=== PATIENT | male | born 1980 | race Caucasian/White ===

== ENCOUNTER 2022-08-02 11:24 | Outpatient (REF) | payer OTHER, SELFPAY ==
--- NOTE | ~2022-08-02 | XR_ITS ---
EXAMINATION: BILATERAL HAND AND WRIST X-RAY CLINICAL INFORMATION: Psoriatic arthritis COMPARISON: None TECHNIQUE: 4 views of the hands and wrists FINDINGS: Bone alignment is normal. No fracture or dislocation is seen. There is question of periarticular osteopenia at the MCP joints. Joint spaces are otherwise normal. No erosions are seen. Soft tissues are normal. XR/XR hand wrist RT IMPRESSION: Unremarkable exam.
--- NOTE | ~2022-08-02 | XR_ITS ---
EXAMINATION: BILATERAL FOOT X-RAY CLINICAL INFORMATION: Psoriatic arthritis COMPARISON: None TECHNIQUE: 3 views of each foot FINDINGS: Bone alignment is normal. No fracture or dislocation. Normal joint spaces. No erosions. Small bilateral calcaneal spurs. Question prominent soft tissue over the plantar heel.s No soft tissue calcifications seen. XR/XR foot LT min 3V IMPRESSION: Small plantar calcaneal spurs. Question prominent soft tissue over the plantar heels.
--- NOTE | ~2022-08-02 | XR_ITS ---
EXAMINATION: XR SACROILIAC JOINTS CLINICAL INFORMATION: Psoriatic arthritis COMPARISON: None TECHNIQUE: 3 views of the sacroiliac joints FINDINGS: No fracture or dislocation. No evidence of sacroiliitis. Postsurgical changes to the lower lumbar spine. Soft tissues are normal. XR/XR sacroiliac joint min 3V IMPRESSION: No evidence of sacroiliitis.
--- NOTE | ~2022-08-02 | XR_ITS ---
EXAMINATION: BILATERAL HAND AND WRIST X-RAY CLINICAL INFORMATION: Psoriatic arthritis COMPARISON: None TECHNIQUE: 4 views of the hands and wrists FINDINGS: Bone alignment is normal. No fracture or dislocation is seen. There is question of periarticular osteopenia at the MCP joints. Joint spaces are otherwise normal. No erosions are seen. Soft tissues are normal. XR/XR hand wrist LT IMPRESSION: Unremarkable exam.
--- NOTE | ~2022-08-02 | XR_ITS ---
EXAMINATION: BILATERAL FOOT X-RAY CLINICAL INFORMATION: Psoriatic arthritis COMPARISON: None TECHNIQUE: 3 views of each foot FINDINGS: Bone alignment is normal. No fracture or dislocation. Normal joint spaces. No erosions. Small bilateral calcaneal spurs. Question prominent soft tissue over the plantar heel.s No soft tissue calcifications seen. XR/XR foot RT min 3V IMPRESSION: Small plantar calcaneal spurs. Question prominent soft tissue over the plantar heels.
[2022-08-02 11:42] LABS: MANUAL DIFF FLAG NO
[2022-08-02 12:26] LABS: Basophils Absolute Auto 0.1 X10*3/uL (0.0-0.2); Basophils Percent Auto 0.4 % (0-2); Eosinophils Absolute Auto 0.2 X10*3/uL (0.0-0.4); Eosinophils Percent Auto 1.2 % (0-4); Hematocrit 43.2 % (42.0-52.0); Hemoglobin 14.4 g/dl (14.0-18.0); Imm Gran Abs Auto 0.13 X10*3/uL (0.00-0.03); Lymphocytes Absolute Auto 3.2 X10*3/uL (1.2-4.9); Mean Corpuscular HGB Conc 33.3 g/dl (31.0-36.0); Mean Corpuscular Hemoglobin 29.9 pg (27.0-33.0); Mean Corpuscular Volume 89.6 fL (80.0-98.0); Monocytes Absolute Auto 0.8 X10*3/uL (0.1-1.2); Monocytes Percent Auto 6.3 % (2-11); Neutrophils Absolute Auto 8.4 x10*3/uL (2.0-8.3); Neutrophils Percent Auto 66.1 % (45-73); Platelet Count 404 X10*3/uL (160-400); Red Blood Count 4.82 X10*6/uL (4.60-5.80); Red Cell Distribution Width 12.7 % (11.0-16.0); White Blood Count 12.8 X10*3/uL (4.8-10.8)
[2022-08-02 15:17] LABS: Alanine Aminotransferase 21 U/L (0-40); Albumin Level 4.5 g/dL (3.5-5.0); Alkaline Phosphatase 84 U/L (39-117); Anion Gap 16 (12-20); Aspartate Amino Transferase 14 U/L (5-37); Bilirubin Total 0.4 mg/dL (0.0-1.0); Blood Urea Nitrogen 17 mg/dL (9-16); C Reactive Protein 1.61 mg/dL (< or = 0.50); Calcium 9.5 mg/dL (8.4-10.2); Carbon Dioxide 21 mmol/L (22-29); Chloride 104 mmol/L (96-108); Estimated Glomerular Filt Rate > 60; Glucose Random 295 mg/dL (60-115); Potassium 4.1 mmol/L (3.3-5.1); Sodium 137 mmol/L (135-145); Total Protein 7.7 g/dL (6.5-8.0); Uric Acid 2.7 mg/dL (3.4-7.0)
[2022-08-03 08:59] LABS: HBc Num1 0.06 S/CO (0.00-0.79); HBsAGNum1 0.36 S/CO (0.00-0.99); Hepatitis B Core Antibody Nonreactive (Nonreactive); Hepatitis B Surface Antigen Negative (Negative); ~HepC Num1 0.08 S/CO (0.00-0.79); ~Hepatitis B Surface Antibody NONREACTIVE (Nonreactive); ~Hepatitis C Antibody Nonreactive (Nonreactive)
[2022-08-04 07:43] LABS: Hepatitis A Antibody IgM 0.11 Index (0-0.79); ~Hepatitis A Antibody IgM Nonreactive (Nonreactive)
[2022-08-04 17:13] LABS: Cyclic Citrullinated Peptide <16 UNITS
[2022-08-05 03:29] LABS: TS Negative Control Passed; TS Panel A 0; TS Panel B 0; TS Positive Control Passed; TSpotTB Negative (Negative)
[2022-08-05 13:34] LABS: Hepatitis B Viral DNA Qn - cp <1.00 NOT DETECTED Log IU/mL (NOT DETECTED); Hepatitis B Viral DNA Qn-IU/mL <10 NOT DETECTED IU/mL (NOT DETECTED)
[2022-08-09 09:19] LABS: HLA B27 Negative (Negative)
== END 2022-08-02 11:25 | disposition home or self-care (01) ==
LOC: HO.LAB 11:24
PROVIDERS: PCP Internal Medicine; Visit Provider Student in an Organized Health Care Education/Training Program
DX: Z11.7 Encounter for testing for latent tuberculosis infection (principal); Z11.59 Encounter for screening for other viral diseases; L40.50 Arthropathic psoriasis, unspecified; B19.10 Unspecified viral hepatitis B without hepatic coma
CPT/HCPCS: 36415; 72202; 73110; 73130; 73630; 80053; 84550; 85025; 86140; 86200; 86481; 86704; 86706; 86709; 86803; 86812; 87340; 87517; 99202

== ENCOUNTER → 2022-08-25 08:04 | Outpatient (BNVA) | payer OTHER, SELFPAY | PROVIDERS: PCP Internal Medicine; Visit Provider Student in an Organized Health Care Education/Training Program | DX: L40.50 Arthropathic psoriasis, unspecified (principal); Z79.631 Long term (current) use of antimetabolite agent | CPT/HCPCS: 99212 ==

== ENCOUNTER 2022-09-19 12:17 | Outpatient (REF) | payer OTHER, SELFPAY ==
[2022-09-19 12:31] LABS: MANUAL DIFF FLAG NO
[2022-09-19 13:11] LABS: Basophils Absolute Auto 0.1 X10*3/uL (0.0-0.2); Basophils Percent Auto 0.5 % (0-2); Eosinophils Absolute Auto 0.1 X10*3/uL (0.0-0.4); Eosinophils Percent Auto 1.3 % (0-4); Hematocrit 39.7 % (42.0-52.0); Hemoglobin 13.3 g/dl (14.0-18.0); Imm Gran Abs Auto 0.06 X10*3/uL (0.00-0.03); Imm Gran Pct Auto 0.6 % (0.0-0.4); Lymphocytes Absolute Auto 2.9 X10*3/uL (1.2-4.9); Lymphocytes Percent Auto 26.9 % (20-40); Mean Corpuscular HGB Conc 33.5 g/dl (31.0-36.0); Mean Corpuscular Hemoglobin 30.7 pg (27.0-33.0); Mean Corpuscular Volume 91.7 fL (80.0-98.0); Mean Platelet Volume 9.6 fL (9.4-12.4); Monocytes Absolute Auto 0.8 X10*3/uL (0.1-1.2); Monocytes Percent Auto 7.4 % (2-11); Neutrophils Absolute Auto 6.9 x10*3/uL (2.0-8.3); Neutrophils Percent Auto 63.3 % (45-73); Platelet Count 389 X10*3/uL (160-400); Red Blood Count 4.33 X10*6/uL (4.60-5.80); Red Cell Distribution Width 14.1 % (11.0-16.0); White Blood Count 10.9 X10*3/uL (4.8-10.8)
[2022-09-19 13:56] LABS: Alanine Aminotransferase 23 U/L (0-40); Albumin Level 4.2 g/dL (3.5-5.0); Alkaline Phosphatase 83 U/L (39-117); Anion Gap 11 (12-20); Aspartate Amino Transferase 14 U/L (5-37); Bilirubin Total 0.4 mg/dL (0.0-1.0); Blood Urea Nitrogen 18 mg/dL (9-16); C Reactive Protein 1.62 mg/dL (< or = 0.50); Calcium 9.5 mg/dL (8.4-10.2); Carbon Dioxide 26 mmol/L (22-29); Chloride 106 mmol/L (96-108); Estimated Glomerular Filt Rate > 60; Glucose Random 263 mg/dL (60-115); Potassium 4.2 mmol/L (3.3-5.1); Sodium 139 mmol/L (135-145); Total Protein 7.1 g/dL (6.5-8.0)
[2022-09-19 13:59] LABS: Erythrocyte Sedimentation Rate 19 MM/HR (0-15)
== END 2022-09-19 12:18 | disposition home or self-care (01) ==
LOC: HO.LAB 12:17
PROVIDERS: PCP Internal Medicine; Visit Provider Student in an Organized Health Care Education/Training Program
DX: Z79.631 Long term (current) use of antimetabolite agent (principal)
CPT/HCPCS: 36415; 80053; 85025; 85652; 86140

== ENCOUNTER 2022-10-20 12:16 | Outpatient (REF) | payer OTHER, SELFPAY ==
[2022-10-20 12:32] LABS: MANUAL DIFF FLAG NO
[2022-10-20 13:40] LABS: Basophils Percent Auto 0.5 % (0-2); Eosinophils Absolute Auto 0.1 X10*3/uL (0.0-0.4); Eosinophils Percent Auto 1.5 % (0-4); Hematocrit 41.3 % (42.0-52.0); Imm Gran Abs Auto 0.15 X10*3/uL (0.00-0.03); Imm Gran Pct Auto 1.7 % (0.0-0.4); Lymphocytes Absolute Auto 2.9 X10*3/uL (1.2-4.9); Lymphocytes Percent Auto 32.9 % (20-40); Mean Corpuscular HGB Conc 33.9 g/dl (31.0-36.0); Mean Corpuscular Hemoglobin 31.5 pg (27.0-33.0); Monocytes Absolute Auto 0.6 X10*3/uL (0.1-1.2); Monocytes Percent Auto 6.3 % (2-11); Neutrophils Absolute Auto 5.1 x10*3/uL (2.0-8.3); Neutrophils Percent Auto 57.1 % (45-73); Platelet Count 406 X10*3/uL (160-400); Red Blood Count 4.44 X10*6/uL (4.60-5.80); Red Cell Distribution Width 14.3 % (11.0-16.0); White Blood Count 8.9 X10*3/uL (4.8-10.8)
[2022-10-20 14:11] LABS: Alanine Aminotransferase 34 U/L (0-40); Albumin Level 4.2 g/dL (3.5-5.0); Alkaline Phosphatase 95 U/L (39-117); Anion Gap 14 (12-20); Aspartate Amino Transferase 19 U/L (5-37); Bilirubin Total 0.4 mg/dL (0.0-1.0); Blood Urea Nitrogen 11 mg/dL (9-16); C Reactive Protein 1.33 mg/dL (< or = 0.50); Calcium 9.5 mg/dL (8.4-10.2); Carbon Dioxide 26 mmol/L (22-29); Chloride 104 mmol/L (96-108); Estimated Glomerular Filt Rate > 60; Glucose Random 314 mg/dL (60-115); Potassium 3.9 mmol/L (3.3-5.1); Sodium 140 mmol/L (135-145); Total Protein 7.1 g/dL (6.5-8.0)
[2022-10-20 14:26] LABS: Erythrocyte Sedimentation Rate 16 MM/HR (0-15)
== END 2022-10-20 12:17 | disposition home or self-care (01) ==
LOC: HO.LAB 12:16
PROVIDERS: PCP Internal Medicine; Visit Provider Student in an Organized Health Care Education/Training Program
DX: Z79.631 Long term (current) use of antimetabolite agent (principal)
CPT/HCPCS: 36415; 80053; 85025; 85652; 86140

== ENCOUNTER → 2022-10-27 11:04 | Outpatient (BNVA) | payer OTHER, SELFPAY | PROVIDERS: PCP Internal Medicine; Visit Provider Student in an Organized Health Care Education/Training Program | DX: L40.50 Arthropathic psoriasis, unspecified (principal); Z79.631 Long term (current) use of antimetabolite agent | CPT/HCPCS: 99212 ==

== ENCOUNTER 2023-01-10 15:23 | Outpatient (REF) | payer OTHER, SELFPAY ==
[2023-01-10 15:33] LABS: MANUAL DIFF FLAG NO
[2023-01-10 15:51] LABS: Basophils Percent Auto 0.3 % (0-2); Eosinophils Absolute Auto 0.1 X10*3/uL (0.0-0.4); Eosinophils Percent Auto 1.3 % (0-4); Hematocrit 43.3 % (42.0-52.0); Hemoglobin 14.7 g/dl (14.0-18.0); Imm Gran Abs Auto 0.06 X10*3/uL (0.00-0.03); Imm Gran Pct Auto 0.6 % (0.0-0.4); Lymphocytes Absolute Auto 2.6 X10*3/uL (1.2-4.9); Mean Corpuscular HGB Conc 33.9 g/dl (31.0-36.0); Mean Corpuscular Hemoglobin 32.7 pg (27.0-33.0); Mean Corpuscular Volume 96.4 fL (80.0-98.0); Monocytes Absolute Auto 0.7 X10*3/uL (0.1-1.2); Monocytes Percent Auto 6.7 % (2-11); Neutrophils Absolute Auto 6.5 x10*3/uL (2.0-8.3); Neutrophils Percent Auto 65.1 % (45-73); Platelet Count 278 X10*3/uL (160-400); Red Blood Count 4.49 X10*6/uL (4.60-5.80); Red Cell Distribution Width 13.9 % (11.0-16.0)
[2023-01-10 16:25] LABS: Alanine Aminotransferase 39 U/L (0-40); Albumin Level 4.4 g/dL (3.5-5.0); Alkaline Phosphatase 59 U/L (39-117); Anion Gap 12 (12-20); Aspartate Amino Transferase 25 U/L (5-37); Bilirubin Total 0.6 mg/dL (0.0-1.0); Blood Urea Nitrogen 18 mg/dL (9-16); C Reactive Protein 0.31 mg/dL (< or = 0.50); Calcium 9.6 mg/dL (8.4-10.2); Carbon Dioxide 25 mmol/L (22-29); Chloride 108 mmol/L (96-108); Estimated Glomerular Filt Rate > 60; Glucose Random 171 mg/dL (60-115); Potassium 4.2 mmol/L (3.3-5.1); Sodium 141 mmol/L (135-145); Total Protein 7.1 g/dL (6.5-8.0)
[2023-01-10 16:41] LABS: Erythrocyte Sedimentation Rate 3 MM/HR (0-15)
== END 2023-01-10 15:24 | disposition home or self-care (01) ==
LOC: HO.LAB 15:23
PROVIDERS: PCP Internal Medicine; Visit Provider Student in an Organized Health Care Education/Training Program
DX: Z79.631 Long term (current) use of antimetabolite agent (principal)
CPT/HCPCS: 36415; 80053; 85025; 85652; 86140

== ENCOUNTER → 2023-01-12 09:03 | Outpatient (BNVA) | payer OTHER, SELFPAY | PROVIDERS: PCP Internal Medicine; Visit Provider Student in an Organized Health Care Education/Training Program | DX: L40.50 Arthropathic psoriasis, unspecified (principal); Z79.631 Long term (current) use of antimetabolite agent; Z79.899 Other long term (current) drug therapy | CPT/HCPCS: 99212 ==

== ENCOUNTER 2023-04-09 16:12 | Outpatient (REF) | payer OTHER, SELFPAY ==
[2023-04-09 16:45] LABS: MANUAL DIFF FLAG NO
[2023-04-09 16:51] LABS: Basophils Percent Auto 0.3 % (0-2); Eosinophils Absolute Auto 0.1 X10*3/uL (0.0-0.4); Eosinophils Percent Auto 1.3 % (0-4); Hematocrit 43.4 % (42.0-52.0); Hemoglobin 14.6 g/dl (14.0-18.0); Imm Gran Abs Auto 0.07 X10*3/uL (0.00-0.03); Imm Gran Pct Auto 0.7 % (0.0-0.4); Lymphocytes Absolute Auto 3.2 X10*3/uL (1.2-4.9); Lymphocytes Percent Auto 31.8 % (20-40); Mean Corpuscular HGB Conc 33.6 g/dl (31.0-36.0); Mean Corpuscular Hemoglobin 33.3 pg (27.0-33.0); Mean Corpuscular Volume 98.9 fL (80.0-98.0); Mean Platelet Volume 9.3 fL (9.4-12.4); Monocytes Absolute Auto 0.8 X10*3/uL (0.1-1.2); Monocytes Percent Auto 8.2 % (2-11); Neutrophils Absolute Auto 5.7 x10*3/uL (2.0-8.3); Neutrophils Percent Auto 57.7 % (45-73); Platelet Count 294 X10*3/uL (160-400); Red Blood Count 4.39 X10*6/uL (4.60-5.80); Red Cell Distribution Width 13.3 % (11.0-16.0)
[2023-04-09 17:29] LABS: Erythrocyte Sedimentation Rate 5 MM/HR (0-15)
[2023-04-09 17:33] LABS: Alanine Aminotransferase 23 U/L (0-40); Albumin Level 4.2 g/dL (3.5-5.0); Alkaline Phosphatase 84 U/L (39-117); Anion Gap 12 (12-20); Aspartate Amino Transferase 18 U/L (5-37); Bilirubin Total 0.2 mg/dL (0.0-1.0); Blood Urea Nitrogen 19 mg/dL (9-16); C Reactive Protein 0.24 mg/dL (< or = 0.50); Calcium 9.6 mg/dL (8.4-10.2); Carbon Dioxide 26 mmol/L (22-29); Chloride 109 mmol/L (96-108); Estimated Glomerular Filt Rate > 60; Glucose Random 119 mg/dL (60-115); Potassium 3.9 mmol/L (3.3-5.1); Sodium 143 mmol/L (135-145); Total Protein 7.2 g/dL (6.5-8.0)
== END 2023-04-09 16:13 | disposition home or self-care (01) ==
LOC: HO.LAB 16:12
PROVIDERS: Visit Provider Student in an Organized Health Care Education/Training Program
DX: L40.50 Arthropathic psoriasis, unspecified (principal)
CPT/HCPCS: 36415; 80053; 85025; 85652; 86140

== ENCOUNTER 2023-04-10 16:05 | Outpatient (AMB) | payer OTHER, SELFPAY ==
[2023-04-10 16:10] VITALS: BP 118/68; PULSE 89; TEMP 36.2; O2SAT 97; BMI 33.6
--- NOTE | 2023-04-10 16:10 | A.OFFVIS_ITS ---
Intake Vital Signs 04/10/23 16:10 Height 5 ft 6 in Weight 208 lb 5.389 oz BMI 33.6 BP 118/68 Blood Pressure Location Rt brachial Position Sitting Pulse 89 Pulse Source Pulse Oximeter Temp 97.2 F Temp Source Skin Pulse Oximetry (%) 97 Intake Visit Reasons: PsA Intake Note: Pt seen today for PsA follow up. 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 Accompanied by: Self / Same As Patient Allergies Seasonal Allergies Allergy (Unknown, Verified 04/10/23 16:12) Unknown Medication List - Last Reconciled 04/10/23 by Yvette Rosario MD adalimumab (Humira(CF) Pen) 40 mg (0.4 mL) subcut Q2W albuterol sulfate 90 mcg/actuation (ProAir HFA) 2 puffs inhalation Q6H PRN aripiprazole 20 mg PO BEDTIME atorvastatin 20 mg PO DAILY dulaglutide (Trulicity) mg subcut QWEEK fenofibrate 54 mg PO DAILY fluticasone propionate 50 mcg/actuation 1 spray intranasal DAILY folic acid 1 mg PO DAILY ibuprofen 800 mg PO Q12H PRN insulin glargine (Lantus Solostar U-100 Insulin) 25 units subcut BEDTIME loratadine 10 mg PO DAILY methotrexate sodium 15 mg (6 x 2.5 mg) PO QWEEK perphenazine 2 mg PO BEDTIME trazodone 50 mg PO BEDTIME HPI HPI Comments History of Present Illness Details 43-year-old male with psoriatic arthritis returns for follow-up. Three injections of the Humira so far. Continues to use methotrexate weekly. On methotrexate 15 mg weekly and Humira 40 mg every other week. Patient states that he has been having pain in his right hand fingers as well as his left hand. Associated with stiffness. Does not believe there is any swelling. Also has pain in his toes as well as pain in the bottom of his feet and heels. Feels that he has been standing for many hours. The pain is generally worse in the morning. Associated with swelling near the heel area. Has not had any psoriasis skin rashes. His neck cracks with movement. Mentions that he is scheduled for an injection in his lower back with [facility] later this week. Initial history: This is 42-year-old male with past medical history of hypertension, dyslipidemia, type 2 diabetes mellitus, fatty liver, anxiety, bip olar disorder who presents for evaluation of diffuse joint pain. The condition started 3-4 months ago with pain swelling and stiffness of his hands, wrists, elbows & toes. He also has triggering of his index finger. He was evaluated by Orthopedic surgery and found to have significantly elevated inflammatory markers. He was started on a prednisone taper with dramatic improvement of his symptoms however his blood sugar was significantly elevated. Patient currently takes Motrin 800 mg Twice daily with little relief. He states he was diagnosed with psoriasis since he was a child. Usually effects the skin behind his ears and his nails. There is no history suggestive of uveitis or inflammatory bowel disease. Patient has had back pain many years ago since after injury to the back. He had lumbar spine surgery many years ago. He is following up with [facility] and waiting to do an injection in his back. [facility] Medical History Anxiety Bipolar 1 disorder Diabetes Fatty liver Hepatitis B Hyperlipidemia Hypertriglyceridemia Low back pain Obesity SAGE (obstructive sleep apnea) Psoriasis Recurrent erosion of cornea, right eye Surgical History History of lumbar fusion Family History Mother Diverticulosis Fibromyalgia Arthritis Thyroid disease Family/Other Lupus Social History Household Members: Significant Other and Children Alcohol intake: current Alcohol intake frequency: holidays/special occasions only Patient Tobacco Use Status: Current everyday Tobacco user Cigarettes Per Day: 6 Current occupational status: unemployed Review of Systems Musc Reports arthralgias and Reports stiffness Skin/Breast Reports dry skin and Denies rash Physical Exam Vital Signs: Last Vital Signs Temp 97.2 F 04/10/23 16:10 Pulse 89 04/10/23 16:10 BP 118/68 04/10/23 16:10 Pulse Ox 97 04/10/23 16:10 BMI result Body Mass Index 33.6 Const General: cooperative, healthy appearing, comfortable, no acute distress and well developed Nutritional Appearance: obese Orientation/consciousness: patient oriented x3 Limitations: no limitations HEENT Head: Yes normocephalic and Yes atraumatic Resp Effort & Inspection: normal respiratory effort and able to speak in complete sentences Skin Other: No psoriasis patches today Neuro General: patient oriented x3 Extrem Other: No wrist pain swelling or tenderness or pain with full flexion and extension bilaterally Right hand diffuse PIP and the IP tenderness Negative MCP squeeze test No tender flexor or extensor tendons right hand Left hand with diffuse PIP tenderness No tender flexor or extensor tendon tenderness Right foot 2nd 4th and 5th MTP tenderness. Negative MTP squeeze test Left 3rd 4th and 5th MTP tenderness Positive calcaneal squeeze test bilaterally Negative empty can test, negative infraspinatus test and negative lift-off test bilaterally Results Reviewed Results Reviewed: Xrays reviewed: X-RAY EXAM OF SHOULDER, COMPLETE ? Result Date: 05/09/2022 Bilateral shoulders, 4 views of each HISTORY: Bilateral shoulder pain and stiffness COMMENT: 4 views. Compared with prior study of the left shoulder from 05/15/2018. There are mild degenerative changes in the AC joints bilaterally. There is no visible fractures, dislocations or abnormal soft tissue calcifications. Alignment is satisfactory. CONCLUSIONS: Mild degenerative changes in the AC joints. ? X-RAY EXAM OF FOOT, COMPLETE (3 VIEWS) ? Result Date: 05/09/2022 Bilateral feet, 3 views of each. Comparison with prior study from 04/14/2021. There is no evidence of fractures, dislocations or destructive lesions. There are bilateral tiny calcaneal spurs. There is no significant interval change since previous examination. CONCLUSIONS: Tiny calcaneal spurs. Otherwise unremarkable examination. X-RAY EXAM OF HAND, 3+ VIEWS Exam Date: 04/05/2022 11:50 AM Ordering Diagnosis: Trigger middle finger of right hand ? Right hand, 3 views. ? HISTORY: Right hand pain, most prominent in the middle finger. There is periarticular osteopenia. There is no visible fractures, dislocations, bony erosions or abnormal soft tissue calcifications. ? CONCLUSIONS: Periarticular osteopenia. Otherwise unremarkable examination. ? Reading Radiologist: Uric Acid 05/04/2022 4.0 3.7 - 9.2 mg/dL Leonarda l ? RHEUMATOID FACTOR 05/04/2022 < 10 <15 IU/mL F inal ? ANTI-NUCLEAR ANTIBODY SCREEN 05/04/2022 NEGATIVE NE GATIVE Final ? ERYTHROCYTE SEDIMENTATION RATE 05/04/2022 59 (A) 0 - 15 mm/hr Final ? WHITE BLOOD COUNT 05/04/2022 12.1 (A) 4.8 - 10.8 x 10-3/uL Final ? RED BLOOD COUNT 05/04/2022 4.4 (A) 4.5 - 5.5 x10- 6/uL Final ? Hemoglobin 05/04/2022 13.8 13.5 - 17.5 g/dL Final ? Hematocrit 05/04/2022 41.9 (A) 42 - 54 % Final ? MEAN CORPUSCULAR VOLUME 05/04/2022 95.7 79 - 9 8 fL Final ? MEAN CORPUSCULAR HEMOGLOBIN 05/04/2022 31.5 27 - 32 pg Final ? MEAN CORPUSCULAR HGB CONC 05/04/2022 32.9 32 - 37 g/dL Final ? RED CELL DISTRIBUTION WIDTH 05/04/2022 12.8 11 - 15 % Final ? PLT COUNT 05/04/2022 432 (A) 130 - 400 x10-3/ uL Final ? MEAN PLATELET VOLUME 05/04/2022 9.5 7 - 11 fL Final ? NRBC % AUTO 05/04/2022 0.0 <1 % Final ? NEUTROPHILS % 05/04/2022 64.6 % Final ? LYMPH % 05/04/2022 24.0 % Final ? MONO % 05/04/2022 7.4 % Final ? EOS % 05/04/2022 2.5 % Final ?D BASO % 05/04/2022 0.6 % Final ? IMMATURE GRANULOCYTES % 05/04/2022 0.9 % Final ? NRBC # AUTO 05/04/2022 0.00 <0.1 x10-3/uL Final ? NEUT # 05/04/2022 7.84 (A) 1.5 - 7.0 x10-3/ uL Final ? LYMPH # 05/04/2022 2.91 1 - 5.0 x10-3/uL Final ? MONO # 05/04/2022 0.90 0.2 - 1.0 x10-3/ uL Final ? EOS # 05/04/2022 0.30 0 - 0.5 x10-3/uL Final ? BASO # 05/04/2022 0.07 0 - 0.2 x10-3/uL Final ? IMMATURE GRANULOCYTES # 05/04/2022 0.11 (A) 0 - 0. 03 x10-3/uL CAT SCAN OF CHEST NO CONTRAST Exam Date: 06/26/2022 8:47 AM Ordering Diagnosis: Abnormal chest x-rayPleuritic chest pain ? History: Pleuritic chest pain. Possible consolidation on chest x-ray. ? Chest CT: CT of the chest was performed with a 3 mm slice thickness display. 2 mm coronal and axial reconstructions were performed as well. Radiation dose 13.2 mGy. ? Findings: Correlation is made with a chest x-ray dated 06/13/2022. There is some minimal linear scarring at the left lung base which probably accounts for the chest x- ray appearance. There are no alveolar infiltrates or effusions. There are no nodules or masses. The airways are patent. There is no mediastinal or hilar adenopathy. ? There is fatty infiltration of liver. Other structures of the chest and visualized upper abdomen are unremarkable. ? IMPRESSION IMPRESSION: No evidence of active pathology in the chest. Assessment & Plan Assessment & Plan (1) Psoriatic arthritis: Comment: PsA dx 09/11 MTX started 09/11 Humira added 11/09 effective Code(s): L40.50 - Arthropathic psoriasis, unspecified Plan: This is a 42-year-old male with psoriatic arthritis presents for follow-up. On Humira 40 mg every other week and methotrexate 15 mg weekly. Continues to have few tender joints. Much better overall. Inflammatory markers normalized. Psoriasis rash resolved. Patient is having an epidural steroid injection by [facility] in a few days. Advised patient to monitor his symptoms of pain in his hands and feet after the injection. If his pain improves, continue meds same dose as prescribed, however if his pain in his fingers and feet does not improve I asked him to increase the methotrexate dose to 20 mg weekly. Continue Humira 40 mg every other week. 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 Will monitor patient for side effects with frequent lab work. Advised patient to take folic acid daily to prevent complications of methotrexate. Side effects of Humira were discussed with the patient in detail including increased risk of infection, demyelinating disease, reactivation of latent TB, possible increased risk of solid and skin tumors. Patient fully aware. Advised patient to seek medical care Kole cece if patient has an infection and advised patient to stop the medication until the infection is resolved. Plan I spent 25 minutes reviewing patient's chart, evaluating patient, ordering diagnostic workup, counseling patient and documenting in the chart Coding Level of Care Code Est Pt Level 4 (82718) Diagnoses Psoriatic arthritis L40.50 Methotrexate, superintendent marine oil terminal, current use Z79.631
== END 2023-04-10 16:44 | disposition home or self-care (01) ==
PROVIDERS: PCP Internal Medicine; Visit Provider Student in an Organized Health Care Education/Training Program
DX: L40.50 Arthropathic psoriasis, unspecified (principal); Z79.631 Long term (current) use of antimetabolite agent
CPT/HCPCS: 99214

== ENCOUNTER → 2023-04-10 16:05 | Outpatient (BNVA) | payer OTHER, SELFPAY | PROVIDERS: Visit Provider Student in an Organized Health Care Education/Training Program | DX: L40.50 Arthropathic psoriasis, unspecified (principal); Z79.631 Long term (current) use of antimetabolite agent | CPT/HCPCS: 99212 ==

== ENCOUNTER 2023-06-29 13:44 | Outpatient (REF) | payer OTHER, SELFPAY ==
[2023-06-29 16:00] LABS: MANUAL DIFF FLAG NO
[2023-06-29 16:04] LABS: Basophils Percent Auto 0.4 % (0-2); Eosinophils Absolute Auto 0.1 X10*3/uL (0.0-0.4); Eosinophils Percent Auto 1.1 % (0-4); Hemoglobin 13.3 g/dl (14.0-18.0); Imm Gran Abs Auto 0.02 X10*3/uL (0.00-0.03); Imm Gran Pct Auto 0.3 % (0.0-0.4); Lymphocytes Absolute Auto 2.5 X10*3/uL (1.2-4.9); Lymphocytes Percent Auto 35.3 % (20-40); Mean Corpuscular HGB Conc 33.3 g/dl (31.0-36.0); Mean Corpuscular Hemoglobin 32.3 pg (27.0-33.0); Mean Corpuscular Volume 97.1 fL (80.0-98.0); Mean Platelet Volume 10.1 fL (9.4-12.4); Monocytes Absolute Auto 0.5 X10*3/uL (0.1-1.2); Monocytes Percent Auto 7.6 % (2-11); Neutrophils Absolute Auto 3.9 x10*3/uL (2.0-8.3); Neutrophils Percent Auto 55.3 % (45-73); Platelet Count 339 X10*3/uL (160-400); Red Blood Count 4.12 X10*6/uL (4.60-5.80); Red Cell Distribution Width 13.9 % (11.0-16.0); White Blood Count 7.1 X10*3/uL (4.8-10.8)
[2023-06-29 16:14] LABS: Alanine Aminotransferase 29 U/L (0-40); Alkaline Phosphatase 69 U/L (39-117); Anion Gap 9 (12-20); Aspartate Amino Transferase 24 U/L (5-37); Bilirubin Total 0.4 mg/dL (0.0-1.0); Blood Urea Nitrogen 14 mg/dL (9-16); C Reactive Protein 0.36 mg/dL (< or = 0.50); Calcium 9.2 mg/dL (8.4-10.2); Carbon Dioxide 26 mmol/L (22-29); Chloride 110 mmol/L (96-108); Estimated Glomerular Filt Rate > 60; Glucose Random 126 mg/dL (60-115); Potassium 3.6 mmol/L (3.3-5.1); Sodium 141 mmol/L (135-145); Total Protein 7.3 g/dL (6.5-8.0)
[2023-06-29 17:06] LABS: Erythrocyte Sedimentation Rate 16 MM/HR (0-15)
== END 2023-06-29 13:45 | disposition home or self-care (01) ==
LOC: HO.HMGCLDS 13:44
PROVIDERS: PCP Internal Medicine; Visit Provider Student in an Organized Health Care Education/Training Program
DX: Z79.631 Long term (current) use of antimetabolite agent (principal)
CPT/HCPCS: 36415; 80053; 85025; 85652; 86140

== ENCOUNTER 2023-07-04 16:01 | Outpatient (AMB) | payer OTHER, SELFPAY ==
--- NOTE | 2023-07-04 16:03 | MHC.OFFVIS ---
Intake Vital Signs 07/04/23 16:04 Height 5 ft 6 in Weight 205 lb 7.533 oz BMI 33.2 BP 122/68 Blood Pressure Location Rt brachial Position Sitting Pulse 80 Pulse Source Pulse Oximeter Pulse Oximetry (%) 98 Oxygen Delivery Method Room Air Intake Visit Reasons: PsA Intake Note: Pt last seen 04/10/23, presents today for follow up and test results. s/p epidural steroid injection with PSS pain did not improve; spine stimulator ordered awaiting appt. Humira and MTX 6 tabs weekly. 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 Accompanied by: Self / Same As Patient Allergies Seasonal Allergies Allergy (Unknown, Verified 07/04/23 16:10) Unknown Medication List - Last Reconciled 07/04/23 by Yvette Rosario MD adalimumab (Humira(CF) Pen) 40 mg (0.4 mL) subcut Q2W albuterol sulfate 90 mcg/actuation (ProAir HFA) 2 puffs inhalation Q6H PRN aripiprazole 20 mg PO BEDTIME atorvastatin 20 mg PO DAILY dulaglutide (Trulicity) mg subcut QWEEK fenofibrate 54 mg PO DAILY fluticasone propionate 50 mcg/actuation 1 spray intranasal DAILY folic acid 1 mg PO DAILY ibuprofen 800 mg PO Q12H PRN insulin glargine (Lantus Solostar U-100 Insulin) 25 units subcut BEDTIME loratadine 10 mg PO DAILY methotrexate sodium 15 mg (6 x 2.5 mg) PO QWEEK perphenazine 2 mg PO BEDTIME trazodone 50 mg PO BEDTIME HPI HPI Comments History of Present Illness Details 43-year-old male with psoriatic arthritis returns for follow-up. On Humira 40 mg every other week and methotrexate 15 mg weekly. States that he received multiple steroid injections by [facility] without much improvement and is planned for a stimulator placement soon. States that he gets intermittent tingling and numbness of his fingers. Continues to have mild pain in his PIP & DIPs. States that he was recently evaluated by his PCP and was told that he might have a skin infection in his groin and was started on antibiotics. He received the flu vaccine and pneumonia vaccine today Initial history: This is 42-year-old male with past medical history of hypertension, dyslipidemia, type 2 diabetes mellitus, fatty liver, anxiety, bipolar disorder who presents for evaluation of diffuse joint pain. The condition started 3-4 months ago with pain swelling and stiffness of his hands, wrists, elbows & toes. He also has triggering of his index finger. He was evaluated by Orthopedic surgery and found to have significantly elevated inflammatory markers. He was started on a prednisone taper with dramatic improvement of his symptoms however his blood sugar was significantly elevated. Patient currently takes Motrin 800 mg Twice daily with little relief. He states he was diagnosed with psoriasis since he was a child. Usually effects the skin behind his ears and his nails. There is no history suggestive of uveitis or inflammatory bowel disease. Patient has had back pain many years ago since after injury to the back. He had lumbar spine surgery many years ago. He is following up with [facility] and waiting to do an injection in his back. [facility] Medical History Recurrent erosion of cornea, right eye Hepatitis B Psoriasis Hyperlipidemia Anxiety Bipolar 1 disorder Low back pain Fatty liver Obesity SAGE (obstructive sleep apnea) Hypertriglyceridemia Diabetes Surgical History History of lumbar fusion Family History Mother Diverticulosis Fibromyalgia Arthritis Thyroid disease Family/Other Lupus Social History Household Members: Significant Other and Children Alcohol intake: current Alcohol intake frequency: holidays/special occasions only Patient Tobacco Use Status: Current everyday Tobacco user Cigarettes Per Day: 6 Current occupational status: unemployed Review of Systems Musc Reports arthralgias, Reports numbness and Reports stiffness Skin/Breast Reports dry skin and Denies rash Neuro Reports numbness and Reports paresthesias Physical Exam Vital Signs: Last Vital Signs Pulse 80 07/04/23 16:04 BP 122/68 07/04/23 16:04 Pulse Ox 98 07/04/23 16:04 Oxygen Delivery Method Room Air 07/04/23 16:04 BMI result Body Mass Index 33.2 Const General: cooperative, healthy appearing, comfortable, no acute distress and well developed Nutritional Appearance: obese Orientation/consciousness: patient oriented x3 Limitations: no limitations HEENT Head: Yes normocephalic and Yes atraumatic Neck Other: Negative Spurling's test bilaterally Resp Effort & Inspection: normal respiratory effort and able to speak in complete sentences Neuro General: patient oriented x3 Extrem Other: No wrist pain swelling or tenderness or pain with full flexion and extension bilaterally Right hand diffuse PIP and DIP tenderness without swelling Negative MCP squeeze test No tender flexor or extensor tendons right hand Left hand with diffuse PIP & DIP tenderness No tender flexor or extensor tendon tenderness Negative MTP squeeze test Results Reviewed Results Reviewed: Xrays reviewed: X-RAY EXAM OF SHOULDER, COMPLETE ? Result Date: 05/09/2022 Bilateral shoulders, 4 views of each HISTORY: Bilateral shoulder pain and stiffness COMMENT: 4 views. Compared with prior study of the left shoulder from 05/15/2018. There are mild degenerative changes in the AC joints bilaterally. There is no visible fractures, dislocations or abnormal soft tissue calcifications. Alignment is satisfactory. CONCLUSIONS: Mild degenerative changes in the AC joints. ? X-RAY EXAM OF FOOT, COMPLETE (3 VIEWS) ? Result Date: 05/09/2022 Bilateral feet, 3 views of each. Comparison with prior study from 04/14/2021. There is no evidence of fractures, dislocations or destructive lesions. There are bilateral tiny calcaneal spurs. There is no significant interval change since previous examination. CONCLUSIONS: Tiny calcaneal spurs. Otherwise unremarkable examination. X-RAY EXAM OF HAND, 3+ VIEWS Exam Date: 04/05/2022 11:50 AM Ordering Diagnosis: Trigger middle finger of right hand ? Right hand, 3 views. ? HISTORY: Right hand pain, most prominent in the middle finger. There is periarticular osteopenia. There is no visible fractures, dislocations, bony erosions or abnormal soft tissue calcifications. ? CONCLUSIONS: Periarticular osteopenia. Otherwise unremarkable examination. ? Reading Radiologist: Uric Acid 05/04/2022 4.0 3.7 - 9.2 mg/dL Final ? RHEUMATOID FACTOR 05/04/2022 < 10 <15 IU/mL Final ? ANTI-NUCLEAR ANTIBODY SCREEN 05/04/2022 NEGATIVE NEGATIVE Final ? ERYTHROCYTE SEDIMENTATION RATE 05/04/2022 59 (A) 0 - 15 mm/hr Final ? WHITE BLOOD COUNT 05/04/2022 12.1 (A) 4.8 - 10.8 x10-3/uL Final ? RED BLOOD COUNT 05/04/2022 4.4 (A) 4.5 - 5.5 x10-6/uL Final ? Hemoglobin 05/04/2022 13.8 13.5 - 17.5 g/dL Final ? Hematocrit 05/04/2022 41.9 (A) 42 - 54 % Final ? MEAN CORPUSCULAR VOLUME 05/04/2022 95.7 79 - 98 fL Final ? MEAN CORPUSCULAR HEMOGLOBIN 05/04/2022 31.5 27 - 32 pg Final ? MEAN CORPUSCULAR HGB CONC 05/04/2022 32.9 32 - 37 g/dL Final ? RED CELL DISTRIBUTION WIDTH 05/04/2022 12.8 11 - 15 % Final ? PLT COUNT 05/04/2022 432 (A) 130 - 400 x10-3/uL Final ? MEAN PLATELET VOLUME 05/04/2022 9.5 7 - 11 fL Final ? NRBC % AUTO 05/04/2022 0.0 <1 % Final ? NEUTROPHILS % 05/04/2022 64.6 % Final ? LYMPH % 05/04/2022 24.0 % Final ? MONO % 05/04/2022 7.4 % Final ? EOS % 05/04/2022 2.5 % Final ? BASO % 05/04/2022 0.6 % Final ? IMMATURE GRANULOCYTES % 05/04/2022 0.9 % Final ? NRBC # AUTO 05/04/2022 0.00 <0.1 x10-3/uL Final ? NEUT # 05/04/2022 7.84 (A) 1.5 - 7.0 x10-3/uL Final ? LYMPH # 05/04/2022 2.91 1 - 5.0 x10-3/uL Final ? MONO # 05/04/2022 0.90 0.2 - 1.0 x10-3/uL Final ? EOS # 05/04/2022 0.30 0 - 0.5 x10-3/uL Final ? BASO # 05/04/2022 0.07 0 - 0.2 x10-3/uL Final ? IMMATURE GRANULOCYTES # 05/04/2022 0.11 (A) 0 - 0.03 x10-3/uL CAT SCAN OF CHEST NO CONTRAST Exam Date: 06/26/2022 8:47 AM Ordering Diagnosis: Abnormal chest x-rayPleuritic chest pain ? History: Pleuritic chest pain. Possible consolidation on chest x-ray. ? Chest CT: CT of the chest was performed with a 3 mm slice thickness display. 2 mm coronal and axial reconstructions were performed as well. Radiation dose 13.2 mGy. ? Findings: Correlation is made with a chest x-ray dated 06/13/2022. There is some minimal linear scarring at the left lung base which probably accounts for the chest x-ray appearance. There are no alveolar infiltrates or effusions. There are no nodules or masses. The airways are patent. There is no mediastinal or hilar adenopathy. ? There is fatty infiltration of liver. Other structures of the chest and visualized upper abdomen are unremarkable. ? IMPRESSION IMPRESSION: No evidence of active pathology in the chest. Assessment & Plan Assessment & Plan (1) Psoriatic arthritis: Comment: PsA dx 09/11 MTX started 09/11 Humira added 11/09 effective Code(s): L40.50 - Arthropathic psoriasis, unspecified Plan: This is a 43-year-old male with psoriatic arthritis presents for follow-up. On Humira 40 mg every other week and methotrexate 15 mg weekly. Continues to have few tender joints. Nothing swollen today. Inflammatory markers normalized. Psoriasis rash resolved. Continue Humira 40 mg every other week. Continue methotrexate 15 mg weekly, Continue folic acid 1 mg daily Patient is currently on antibiotics for a skin infection. 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 He also took the methotrexate today. Advised patient to hold the next methotrexate dose Plan I spent 25 minutes reviewing patient's chart, evaluating patient, ordering diagnostic workup, counseling patient and documenting in the chart Orders: Orders Complete Blood Count Auto Diff 3 Months Z79.631 - intermediate designer (current) use of antimetabolite agent NE electromyogram (EMG) Today R20.2 - Paresthesia of skin Comprehensive Met. 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
[2023-07-04 16:04] VITALS: BP 122/68; PULSE 80; O2SAT 98; BMI 33.2
== END 2023-07-04 16:27 | disposition home or self-care (01) ==
PROVIDERS: PCP Internal Medicine; Visit Provider Student in an Organized Health Care Education/Training Program
DX: L40.50 Arthropathic psoriasis, unspecified (principal); Z79.631 Long term (current) use of antimetabolite agent; R20.2 Paresthesia of skin; Z71.85 Encounter for immunization safety counseling
CPT/HCPCS: 99214

== ENCOUNTER → 2023-07-04 16:01 | Outpatient (BNVA) | payer OTHER, SELFPAY | PROVIDERS: PCP Internal Medicine; Visit Provider Student in an Organized Health Care Education/Training Program | DX: L40.50 Arthropathic psoriasis, unspecified (principal); R20.2 Paresthesia of skin; Z23 Encounter for immunization; Z71.85 Encounter for immunization safety counseling; Z79.631 Long term (current) use of antimetabolite agent | CPT/HCPCS: 99212 ==

== ENCOUNTER 2023-08-01 08:58 | Outpatient (REF) | payer OTHER, SELFPAY ==
--- NOTE | 2023-08-01 09:02 | EMG_ITS ---
Please see scanned EMG / Nerve Conduction Report. MTDD
== END 2023-08-01 08:59 | disposition home or self-care (01) ==
LOC: HO.NEURO 08:58
PROVIDERS: PCP Internal Medicine; Visit Provider Student in an Organized Health Care Education/Training Program
DX: R20.2 Paresthesia of skin (principal)
CPT/HCPCS: 95886; 95913

== ENCOUNTER 2023-10-17 12:02 | Outpatient (REF) | payer OTHER, SELFPAY ==
[2023-10-17 13:46] LABS: MANUAL DIFF FLAG NO
[2023-10-17 13:58] LABS: Basophils Percent Auto 0.4 % (0-2); Eosinophils Absolute Auto 0.1 X10*3/uL (0.0-0.4); Eosinophils Percent Auto 1.7 % (0-4); Hematocrit 41.6 % (42.0-52.0); Hemoglobin 14.2 g/dl (14.0-18.0); Imm Gran Abs Auto 0.05 X10*3/uL (0.00-0.03); Imm Gran Pct Auto 0.6 % (0.0-0.4); Lymphocytes Absolute Auto 3.9 X10*3/uL (1.2-4.9); Lymphocytes Percent Auto 49.7 % (20-40); Mean Corpuscular HGB Conc 34.1 g/dl (31.0-36.0); Mean Corpuscular Hemoglobin 32.7 pg (27.0-33.0); Mean Corpuscular Volume 95.9 fL (80.0-98.0); Mean Platelet Volume 10.2 fL (9.4-12.4); Monocytes Absolute Auto 0.6 X10*3/uL (0.1-1.2); Monocytes Percent Auto 7.3 % (2-11); Neutrophils Absolute Auto 3.1 x10*3/uL (2.0-8.3); Neutrophils Percent Auto 40.3 % (45-73); Platelet Count 282 X10*3/uL (160-400); Red Blood Count 4.34 X10*6/uL (4.60-5.80); Red Cell Distribution Width 13.2 % (11.0-16.0); White Blood Count 7.8 X10*3/uL (4.8-10.8)
[2023-10-17 14:10] LABS: Alanine Aminotransferase 30 U/L (0-40); Alkaline Phosphatase 83 U/L (39-117); Anion Gap 9 (12-20); Aspartate Amino Transferase 23 U/L (5-37); Bilirubin Total 0.3 mg/dL (0.0-1.0); Blood Urea Nitrogen 21 mg/dL (9-16); C Reactive Protein 0.37 mg/dL (< or = 0.50); Calcium 9.4 mg/dL (8.4-10.2); Carbon Dioxide 28 mmol/L (22-29); Chloride 106 mmol/L (96-108); Estimated Glomerular Filt Rate > 60; Glucose Random 190 mg/dL (60-115); Potassium 3.1 mmol/L (3.3-5.1); Sodium 140 mmol/L (135-145); Total Protein 7.1 g/dL (6.5-8.0)
[2023-10-17 14:36] LABS: Erythrocyte Sedimentation Rate 6 MM/HR (0-15)
== END 2023-10-17 12:03 | disposition home or self-care (01) ==
LOC: HO.HMGCLDS 12:02
PROVIDERS: PCP Internal Medicine; Visit Provider Student in an Organized Health Care Education/Training Program
DX: Z79.631 Long term (current) use of antimetabolite agent (principal)
CPT/HCPCS: 36415; 80053; 85025; 85652; 86140

== ENCOUNTER 2023-10-18 12:58 | Outpatient (AMB) | payer OTHER, SELFPAY ==
[2023-10-18 13:04] VITALS: BP 126/74; PULSE 82; TEMP 36.8; O2SAT 98; BMI 33.5
--- NOTE | 2023-10-18 13:04 | A.OFFVIS_ITS ---
Intake Intake Visit Reasons: PsA Intake Note: Patient last seen 07/04/23 presents today for follow up and test results. Allergies Seasonal Allergies Allergy (Unknown, Verified 07/04/23 16:10) Unknown [facility] Medical History Recurrent erosion of cornea, right eye Hepatitis B Psoriasis Hyperlipidemia Anxiety Bipolar 1 disorder Low back pain Fatty liver Obesity SAGE (obstructive sleep apnea) Hypertriglyceridemia Diabetes Surgical History History of lumbar fusion Family History Mother Diverticulosis Fibromyalgia Arthritis Thyroid disease Family/Other Lupus Social History Household Members: Significant Other and Children Alcohol intake: current Alcohol intake frequency: holidays/special occasions only Patient Tobacco Use Status: Current everyday Tobacco user Cigarettes Per Day: 6 Current occupational status: unemployed Coding
--- NOTE | 2023-10-18 13:09 | MHC.OFFVIS ---
Intake Vital Signs 10/18/23 13:04 10/18/23 13:09 Height 5 ft 6 in Weight 207 lb 7.28 oz BMI 33.5 33.5 Temp 98.3 F Temp Source Skin Intake Visit Reasons: PsA Intake Note: Patient last seen 07/04/23 presents today for follow up and test results. 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 Accompanied by: Self / Same As Patient Allergies Seasonal Allergies Allergy (Unknown, Verified 07/04/23 16:10) Unknown PFSH Medical History Recurrent erosion of cornea, right eye Hepatitis B Psoriasis Hyperlipidemia Anxiety Bipolar 1 disorder Low back pain Fatty liver Obesity SAGE (obstructive sleep apnea) Hypertriglyceridemia Diabetes Surgical History History of lumbar fusion Family History Mother Diverticulosis Fibromyalgia Arthritis Thyroid disease Family/Other Lupus Social History Household Members: Significant Other and Children Alcohol intake: current Alcohol intake frequency: holidays/special occasions only Patient Tobacco Use Status: Current everyday Tobacco user Cigarettes Per Day: 6 Current occupational status: unemployed Physical Exam Vital Signs: Last Vital Signs Temp 98.3 F 10/18/23 13:04 BMI result Body Mass Index 33.5 Coding
--- NOTE | 2023-10-18 13:13 | A.OFFVIS_ITS ---
Intake Vital Signs 10/18/23 13:04 10/18/23 13:14 Height 5 ft 6 in Weight 207 lb 7.28 oz BMI 33.5 33.5 BP 126/74 Blood Pressure Location Rt brachial Position Sitting Pulse 82 Pulse Source Pulse Oximeter Temp 98.3 F Temp Source Skin Pulse Oximetry (%) 98 Oxygen Delivery Method Room Air Intake Visit Reasons: PsA Intake Note: Patient last seen 07/04/23 presents today for follow up and test results. 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 Allergies Seasonal Allergies Allergy (Unknown, Verified 10/18/23 13:14) Unknown Medication List - Last Reconciled 10/18/23 by Yvette Rosario MD adalimumab (Humira(CF) Pen) 40 mg (0.4 mL) subcut Q2W albuterol sulfate 90 mcg/actuation (ProAir HFA) 2 puffs inhalation Q6H PRN aripiprazole 20 mg PO BEDTIME atorvastatin 20 mg PO DAILY dulaglutide (Trulicity) mg subcut QWEEK fenofibrate 54 mg PO DAILY fluticasone propionate 50 mcg/actuation 1 spray intranasal DAILY folic acid 1 mg PO DAILY ibuprofen 800 mg PO Q12H PRN insulin glargine (Lantus Solostar U-100 Insulin) 25 units subcut BEDTIME loratadine 10 mg PO DAILY methotrexate sodium 15 mg (6 x 2.5 mg) PO QWEEK perphenazine 2 mg PO BEDTIME trazodone 50 mg PO BEDTIME HPI HPI Comments History of Present Illness Details 43-year-old male with psoriatic arthriti s returns for follow-up. On Humira 40 mg every other week and methotrexate 15 mg weekly. Doing well overall. He continues to have mild pain in his PIP is bilaterally especially when using his hands. Continues to have the numbness of both hands. Stated that he was evaluated by pain management and had a stimulator trial which worked bite well and planned for spinal cord stimulator placement. He takes ibuprofen 800 mg 2 to 3 times a week as needed for joint pain. Has not had any psoriasis recently Initial history: This is 42-year-old male with past medical history of hypertension, dyslipidemia, type 2 diabetes mellitus, fatty liver, anxiety, bipolar disorder who presents for evaluation of diffuse joint pain. The condition started 3-4 months ago with pain swelling and stiffness of his hands, wrists, elbows & toes. He also has triggering of his index finger. He was evaluated by Orthopedic surgery and found to have significantly elevated inflammatory markers. He was started on a prednisone taper with dramatic improv ement of his symptoms however his blood sugar was significantly elevated. Patient currently takes Motrin 800 mg Twice daily with little relief. He states he was diagnosed with psoriasis since he was a child. Usually effects the skin behind his ears and his nails. There is no history suggestive of uveitis or inflammatory bowel disease. Patient has had back pain many years ago since after injury to the back. He had lumbar spine surgery many years ago. He is following up with [facility] and waiting to do an injection in his back. [facility] Medical History (Updated 10/18/23 @ 13:31 by Yvette Rosario MD) Hepatitis B Recurrent erosion of cornea, right eye Psoriasis Hyperlipidemia Anxiety Bipolar 1 disorder Low back pain Fatty liver Obesity SAGE (obstructive sleep apnea) Hypertriglyceridemia Diabetes Surgical History History of lumbar fusion Family History Mother Diverticulosis Fibromyalgia Arthritis Thyroid disease Family/Other Lupus Social History Household Members: Significant Other and Children Alcohol intake: current Alcohol intake frequency: holidays/special occasions only Patient Tobacco Use Status: Current everyday Tobacco user Cigarettes Per Day: 6 Current occupational status: unemployed Review of Systems Musc Reports arthralgias and Reports numbness Skin/Breast Denies rash Neuro Reports numbness and Reports paresthesias Physical Exam Vital Signs: Last Vital Signs Temp 98.3 F 10/18/23 13:04 Pulse 82 10/18/23 13:04 BP 126/74 10/18/23 13:04 Pulse Ox 98 10/18/23 13:04 Oxygen Delivery Method Room Air 10/18/23 13:04 BMI result Body Mass Index 33.5 Const General: cooperative, healthy appearing, comfortable, no acute distress and well developed Nutritional Appearance: obese Orientation/consciousness: patient oriented x3 Limitations: no limitations HEENT Head: Yes normocephalic and Yes atraumatic Neck Other: Negative Spurling's test bilaterally Resp Effort & Inspection: normal respiratory effort and able to speak in complete sentences Skin General skin exam: no rashes or lesions noted Neuro General: patient oriented x3 Extrem Other: No wrist pain swelling or tenderness or pain with full flexion and extension bilaterally Bilateral diffuse PIP tenderness without swelling Negative MCP squeeze test No tender flexor or extensor tendons both hands Negative rotator cuff provocative maneuvers bilaterally Negative Speed's test bilaterally Negative MTP squeeze test Results Reviewed Results Reviewed: Xrays reviewed: X-RAY EXAM OF SHOULDER, COMPLETE ? Result Date: 05/09/2022 Bilateral shoulders, 4 views of each HISTORY: Bilateral shoulder pain and stiffness COMMENT: 4 views. Compared with prior study of the left shoulder from 05/15/2018. There are mild degenerative changes in the AC joints bilaterally. There is no visible fractures, dislocations or abnormal soft tissue calcifications. Alignment is satisfactory. CONCLUSIONS: Mild degenerative changes in the AC joints. ? X-RAY EXAM OF FOOT, COMPLETE (3 VIEWS) ? Result Date: 05/09/2022 Bilateral feet, 3 views of each. Comparison with prior study from 04/14/2021. There is no evidence of fractures, dislocations or destructive lesions. There are bilateral tiny calcaneal spurs. There is no significant interval change since previous examination. CONCLUSIONS: Tiny calcaneal spurs. Otherwise unremarkable examination. X-RAY EXAM OF HAND, 3+ VIEWS Exam Date: 04/05/2022 11:50 AM Ordering Diagnosis:0 Trigger middle finger of right hand ? Right hand, 3 views. ? HISTORY: Right hand pain, most prominent in the middle finger. There is periarticular osteopenia. There is no visible fractures, dislocations, bony erosions or abnormal soft tissue calcifications. ? CONCLUSIONS: Periarticular osteopenia. Otherwise unremarkable examination. ? Reading Radiologist: Uric Acid 05/04/2022 4.0 3.7 - 9.2 mg/dL Leonarda l ? RHEUMATOID FACTOR 05/04/2022 < 10 <15 IU/mL F inal ? ANTI-NUCLEAR ANTIBODY SCREEN 05/04/2022 NEGATIVE NE GATIVE Final ? ERYTHROCYTE SEDIMENTATION RATE 05/04/2022 59 (A) 0 - 15 mm/hr Final ? WHITE BLOOD COUNT 05/04/2022 12.1 (A) 4.8 - 10.8 x 10-3/uL Final ? RED BLOOD COUNT 05/04/2022 4.4 (A) 4.5 - 5.5 x10- 6/uL Final ? Hemoglobin 05/04/2022 13.8 13.5 - 17.5 g/dL Final ? Hematocrit 05/04/2022 41.9 (A) 42 - 54 % Final ? MEAN CORPUSCULAR VOLUME 05/04/2022 95.7 79 - 9 8 fL Final ? MEAN CORPUSCULAR HEMOGLOBIN 05/04/2022 31.5 27 - 32 pg Final ? MEAN CORPUSCULAR HGB CONC 05/04/2022 32.9 32 - 37 g/dL Final ? RED CELL DISTRIBUTION WIDTH 05/04/2022 12.8 11 - 15 % Final ? PLT COUNT 05/04/2022 432 (A) 130 - 400 x10-3/ uL Final ? MEAN PLATELET VOLUME 05/04/2022 9.5 7 - 11 fL Final ? NRBC % AUTO 05/04/2022 0.0 <1 % Final ? NEUTROPHILS % 05/04/2022 64.6 % Final ? LYMPH % 05/04/2022 24.0 % Final ? MONO % 05/04/2022 7.4 % Final ? EOS % 05/04/2022 2.5 % Final ? BASO % 05/04/2022 0.6 % Final ? IMMATURE GRANULOCYTES % 05/04/2022 0.9 % Final ? NRBC # AUTO 05/04/2022 0.00 <0.1 x10-3/uL Final ? NEUT # 05/04/2022 7.84 (A) 1.5 - 7.0 x10-3/ uL Final ? LYMPH # 05/04/2022 2.91 1 - 5.0 x10-3/uL Final ? MONO # 05/04/2022 0.90 0.2 - 1.0 x10-3/ uL Final ? EOS # 05/04/2022 0.30 0 - 0.5 x10-3/uL Final ? BASO # 05/04/2022 0.07 0 - 0.2 x10-3/uL Final ? IMMATURE GRANULOCYTES # 05/04/2022 0.11 (A) 0 - 0. 03 x10-3/uL CAT SCAN OF CHEST NO CONTRAST Exam Date: 06/26/2022 8:47 AM Ordering Diagnosis: Abnormal chest x-rayPleuritic chest pain ? History: Pleuritic chest pain. Possible consolidation on chest x-ray. ? Chest CT: CT of the chest was performed with a 3 mm slice thickness display. 2 mm coronal and axial reconstructions were performed as well. Radiation dose 13.2 mGy. ? Findings: Correlation is made with a chest x-ray dated 06/13/2022. There is some minimal linear scarring at the left lung base which probably accounts for the chest x- ray appearance. There are no alveolar infiltrates or effusions. There are no nodules or masses. The airways are patent. There is no mediastinal or hilar adenopathy. ? There is fatty infiltration of liver. Other structures of the chest and visualized upper abdomen are unremarkable. ? IMPRESSION IMPRESSION: No evidence of active pathology in the chest. Assessment & Plan Assessment & Plan (1) Psoriatic arthritis: Comment: PsA dx 09/11 MTX started 09/11 Humira added 11/09 effective Code(s): L40.50 - Arthropathic psoriasis, unspecified Plan: This is a 43-year-old male with psoriatic arthritis presents for follow-up. On Humira 40 mg every other week and methotrexate 15 mg weekly. Continues to have few tender joints. Nothing swollen today. Inflammatory markers normalized. Psoriasis rash resolved. Continue Humira 40 mg every other week. Continue methotrexate 15 mg weekly, Continue folic acid 1 mg daily Patient is currently on antibiotics for a skin infection. Advised patient to hold the next Humira and methotrexate dose Labs before next visit in 3 months Infectious screening hepatitis panel and T spot -ve 2021 (2) Methotrexate, correction, current use: Code(s): Z79.631 - [facility] (current) use of antimetabolite agent Plan: Monitor safety labs (3) Paresthesia of hand, bilateral: Code(s): R20.2 - Paresthesia of skin Plan: Bilateral upper extremity EMG/NCV showed ulnar nerve compression. Referred patient to hand surgeon for further eval Plan I spent 25 minutes reviewing patient's chart, evaluating patient, ordering diagnostic workup, counseling patient and documenting in the chart Orders: Orders Complete Blood Count Auto Diff 3 Months Z79.631 - [facility] (current) use of antimetabolite agent C Reactive Protein 3 Months Z79.631 - terminal make up operator (current) use of antimetabolite agent Erythrocyte Sedimentation Rate 3 Months Z79.631 - terminal make up operator (current) use of antimetabolite agent Hepatitis A,B,C Profile 3 Months Z11.59 - Encounter for screening for other viral diseases T Spot TB 3 Months Z11.7 - Encounter for testing for latent tuberculosis infection Comprehensive Met. Panel 3 Months Z79.631 - terminal make up operator (current) use of antimetabolite agent Hepatitis B Viral DNA Qn 3 Months B19.10 - Unspecified viral hepatitis B without hepatic coma Referrals Hand Surgery Referral G56.23 - Lesion of ulnar nerve, bilateral upper limbs Medications: Changed From methotrexate sodium 15 mg (6 x 2.5 mg) PO QWEEK 78 tabs 1RF To methotrexate sodium 20 mg (8 x 2.5 mg) PO QWEEK 96 tabs 0RF Refilled folic acid 1 mg PO DAILY 90 tabs 1RF Coding Level of Care Code Est Pt Level 4 (18845) Diagnoses Psoriatic arthritis L40.50 Methotrexate, correction, current use Z79.631 Paresthesia of hand, bilateral R20.2
[2023-10-18 13:14] VITALS: BMI 33.5
== END 2023-10-18 13:23 | disposition home or self-care (01) ==
LOC: HO.RHE 12:58
PROVIDERS: PCP Internal Medicine; Visit Provider Student in an Organized Health Care Education/Training Program
DX: L40.50 Arthropathic psoriasis, unspecified (principal); Z79.631 Long term (current) use of antimetabolite agent; R20.2 Paresthesia of skin
CPT/HCPCS: 99214

== ENCOUNTER → 2023-10-18 12:58 | Outpatient (BNVA) | payer OTHER, SELFPAY | PROVIDERS: PCP Internal Medicine; Visit Provider Student in an Organized Health Care Education/Training Program | DX: L40.50 Arthropathic psoriasis, unspecified (principal); Z79.631 Long term (current) use of antimetabolite agent; R20.2 Paresthesia of skin | CPT/HCPCS: 99212 ==

== ENCOUNTER 2023-12-04 08:59 | Outpatient (AMB) | payer OTHER, SELFPAY ==
--- NOTE | 2023-12-04 09:07 | A.OFFVIS_ITS ---
Intake Vital Signs 12/04/23 09:10 Height 5 ft 6 in Weight 207 lb BMI 33.4 Intake Visit Reasons: New Pt - B/L hand numbness Intake Note: Ronni is a 43 year old right hand doiminant male who presents today as a new patient for evaluation of his bilateral hand numbness, EMG done on 08/01/23. He states that he was seen by Dr. Rosario who referred him to orthopedics. Currently he has constant numbness and tingling that starts in his elbow and radiates down to his fingers. His left hand is the worse. No previous tx. Allergies Seasonal Allergies Allergy (Unknown, Verified 12/04/23 09:11) Unknown HPI New Pt - B/L hand numbness HPI Details 43-year-old right hand dominant male who presents in the office today, as a new patient, for an evaluation of bilateral hand numbness. Patient confirms being followed by Dr. Rosario, who referred him to Orthopedics. Confirms constant numbness and tingling that began in his elbow and radiates down to his digits. Reports his left hand is worse than his right hand. He denies any prior treatment. [facility] Medical History (Updated 12/04/23 @ 10:28 by Dalila Mai) Hepatitis B Recurrent erosion of cornea, right eye Psoriasis Hyperlipidemia Anxiety Bipolar 1 disorder Low back pain Fatty liver Obesity SAGE (obstructive sleep apnea) Hypertriglyceridemia Diabetes Surgical History History of lumbar fusion Family History Mother Diverticulosis Fibromyalgia Arthritis Thyroid disease Family/Other Lupus Social History (Updated 12/04/23 @ 09:12 by SUYAPA Oro) Household Members: Significant Other and Children Alcohol intake: current Alcohol intake frequency: holidays/special occasions only Patient Tobacco Use Status: Current everyday Tobacco user Cigarettes Per Day: 6 Current occupational status: unemployed Current occupation: right hand dominant Review of Systems Const All systems reviewed & are unremarkable except as noted in HPI and below Physical Exam Vital Signs: BMI result Body Mass Index 33.4 Const General: cooperative, healthy appearing and no acute distress Orientation/consciousness: patient oriented x3 Resp Effort & Inspection: normal respiratory effort and able to speak in complete sentences Cardio Rate: regular rate Peripheral pulses: Peripheral pulses 2+ throughout GI Palpation (GI): Soft to palpation Skin General skin exam: no rashes or lesions noted Lesions: no lesions Rashes: no rashes Neuro General: patient oriented x3 Extrem Other: Left hand: Normal to inspection. No ecchymosis, erythema, or edema. Able to perform full finger flexion, extension, abduction, adduction, finger cross, okay sign, and thumbs up without deficit. Able to make a closed fist. Positive Tinel's at the cubital tunnel. Negative Tinel?s at the cubital tunnel. Sensation intact. Capillary refill is brisk. Radial pulse intact. Assessment & Plan Assessment & Plan (1) Cubital tunnel syndrome on left: Code(s): G56.22 - Lesion of ulnar nerve, left upper limb (2) Diabetes: Code(s): E11.9 - Type 2 diabetes mellitus without complications Plan Mr. Paul is a 43-year-old right hand dominant male who presents in the office today, as a new patient, for an evaluation of bilateral hand numbness. Patient confirms being followed by Dr. Rosario, who referred him to Orthopedics. Confirms constant numbness and tingling that began in his elbow and radiates down to his digits. Reports that his left hand is worse than his right hand. He denies any prior treatment. Patient has a history of diabetes mellitus which he is currently taking Tr ulicity and insulin for. We discussed that we would have to stop the Trulicity at least seven days prior to surgical intervention. He is also taking methotrexate and Humira from our rheumatology provider, Doctor Rosario; which these medications will likely need to be stopped as well. The patient will consult with Dr. Rosario to see when it is appropriate to discontinue prior to scheduling surgery and when to resume them. Patient reports his last A1c was in 06/2023 and was 6. I do not have a record of this and would need verification. Patient would also need PCP clearance. Of note: His labs from 10/17/2023 have abnormalities. Once PCP clearance is obtained we will reach out to Rheumatology, and then the patient can be scheduled for a pre-operative appointment with Dr. Pugh to discuss more details of what the procedure entails and his risk factors given his comorbidities. Follow up will be at his preoperative appointment with Dr. Pugh, or sooner if needed. EMG of the bilateral hands, obtained on 08/01/2023, revealed: Moderate compression palsy of the ulnar nerve bilaterally at the elbow. Normal motor and sensory nerve conduction study of the median nerves, with no evidence of carpal tunnel syndrome. Normal EMG of the C5-T1 innervated muscles bilaterally. Patient Instructions: Scribed by Dalila Mai medical officer psychiatry, for Lolita David FARMER on 12/04/2023 at 9:02 am, EST. Coding Level of Care Code New Pt Level 4 (03021) Diagnoses Cubital tunnel syndrome on left G56.22 Diabetes E11.9
[2023-12-04 09:10] VITALS: BMI 33.4
== END 2023-12-04 09:52 | disposition home or self-care (01) ==
PROVIDERS: PCP Internal Medicine; Visit Provider Physician Assistant
DX: G56.22 Lesion of ulnar nerve, left upper limb (principal); E11.9 Type 2 diabetes mellitus without complications
CPT/HCPCS: 99203

== ENCOUNTER → 2023-12-04 08:59 | Outpatient (BNVA) | payer OTHER, SELFPAY | PROVIDERS: PCP Internal Medicine; Visit Provider Physician Assistant | DX: G56.22 Lesion of ulnar nerve, left upper limb (principal); E11.9 Type 2 diabetes mellitus without complications; Z79.4 Long term (current) use of insulin; Z79.85 Long-term (current) use of injectable non-insulin antidiabetic drugs | CPT/HCPCS: 99202 ==

== ENCOUNTER 2024-01-10 13:25 | Outpatient (REF) | payer OTHER, SELFPAY ==
[2024-01-10 13:45] LABS: MANUAL DIFF FLAG NO
[2024-01-10 14:09] LABS: Basophils Percent Auto 0.3 % (0-2); Eosinophils Absolute Auto 0.1 X10*3/uL (0.0-0.4); Eosinophils Percent Auto 0.9 % (0-4); Hematocrit 39.2 % (42.0-52.0); Hemoglobin 13.4 g/dl (14.0-18.0); Imm Gran Abs Auto 0.03 X10*3/uL (0.00-0.03); Imm Gran Pct Auto 0.4 % (0.0-0.4); Lymphocytes Absolute Auto 2.2 X10*3/uL (1.2-4.9); Lymphocytes Percent Auto 31.1 % (20-40); Mean Corpuscular HGB Conc 34.2 g/dl (31.0-36.0); Mean Corpuscular Hemoglobin 32.9 pg (27.0-33.0); Mean Corpuscular Volume 96.3 fL (80.0-98.0); Mean Platelet Volume 9.6 fL (9.4-12.4); Monocytes Absolute Auto 0.6 X10*3/uL (0.1-1.2); Monocytes Percent Auto 8.4 % (2-11); Neutrophils Absolute Auto 4.1 x10*3/uL (2.0-8.3); Neutrophils Percent Auto 58.9 % (45-73); Platelet Count 271 X10*3/uL (160-400); Red Blood Count 4.07 X10*6/uL (4.60-5.80); Red Cell Distribution Width 13.9 % (11.0-16.0); White Blood Count 6.9 X10*3/uL (4.8-10.8)
[2024-01-10 14:54] LABS: Erythrocyte Sedimentation Rate 6 MM/HR (0-15)
[2024-01-10 15:02] LABS: Alanine Aminotransferase 31 U/L (0-40); Albumin Level 4.2 g/dL (3.5-5.0); Alkaline Phosphatase 59 U/L (39-117); Anion Gap 14 (12-20); Aspartate Amino Transferase 24 U/L (5-37); Blood Urea Nitrogen 21 mg/dL (9-16); Calcium 9.2 mg/dL (8.4-10.2); Carbon Dioxide 26 mmol/L (22-29); Chloride 108 mmol/L (96-108); Estimated Glomerular Filt Rate > 60; Glucose Random 98 mg/dL (60-115); Potassium 3.7 mmol/L (3.3-5.1); Sodium 144 mmol/L (135-145); Total Protein 7.2 g/dL (6.5-8.0)
[2024-01-11 04:45] LABS: HBc Num1 0.08 S/CO (0.00-0.79); HBsAGNum1 0.51 S/CO (0.00-0.99); Hepatitis A Antibody IgM 0.12 Index (0-0.79); Hepatitis B Core Antibody Nonreactive (Nonreactive); Hepatitis B Surface Antigen Negative (Negative); ~HepC Num1 0.09 S/CO (0.00-0.79); ~Hepatitis A Antibody IgM Nonreactive (Nonreactive); ~Hepatitis B Surface Antibody NONREACTIVE (Nonreactive); ~Hepatitis C Antibody Nonreactive (Nonreactive)
[2024-01-12 13:32] LABS: Hepatitis B Viral DNA Qn - cp NOT DETECTED Log IU/mL (NOT DETECTED); Hepatitis B Viral DNA Qn-IU/mL NOT DETECTED (NOT DETECTED)
[2024-01-13 03:49] LABS: TS Negative Control Passed; TS Panel A 0; TS Panel B 0; TS Positive Control Passed; TSpotTB Negative (Negative)
== END 2024-01-10 13:26 | disposition home or self-care (01) ==
LOC: HO.LAB 13:25
PROVIDERS: PCP Internal Medicine; Visit Provider Student in an Organized Health Care Education/Training Program
DX: Z11.59 Encounter for screening for other viral diseases (principal); Z11.7 Encounter for testing for latent tuberculosis infection; B19.10 Unspecified viral hepatitis B without hepatic coma; Z79.631 Long term (current) use of antimetabolite agent
CPT/HCPCS: 36415; 80053; 85025; 85652; 86140; 86481; 86704; 86706; 86709; 86803; 87340; 87517

== ENCOUNTER 2024-01-21 13:46 | Outpatient (AMB) | payer OTHER, SELFPAY ==
--- NOTE | 2024-01-21 13:53 | MHC.OFFVIS ---
Vital Signs 01/21/24 13:58 Height 5 ft 6 in Weight 205 lb 7.533 oz BMI 33.2 BP 112/62 Blood Pressure Location Rt brachial Position Sitting Pulse 87 Pulse Oximetry (%) 98 Intake Visit Reasons: PsA Intake Note: Patient last seen 10/18/23 presents today for follow up and test results. Allergies Seasonal Allergies Allergy (Unknown, Verified 01/21/24 13:57) Unknown Medication List - Last Reconciled 01/21/24 by Yvette Rosario MD albuterol sulfate 90 mcg/actuation (ProAir HFA) 2 puffs inhalation Q6H PRN aripiprazole 20 mg PO BEDTIME atorvastatin 20 mg PO DAILY dulaglutide (Trulicity) mg subcut QWEEK fenofibrate 54 mg PO DAILY fluticasone propionate 50 mcg/actuation 1 spray intranasal DAILY folic acid 1 mg PO DAILY Humira(CF) Pen (adalimumab) 40 mg (0.4 mL) subcut Q2W NS ibuprofen 800 mg PO Q12H PRN insulin glargine (Lantus Solostar U-100 Insulin) 25 units subcut BEDTIME loratadine 10 mg PO DAILY methotrexate sodium 20 mg (8 x 2.5 mg) PO QWEEK perphenazine 2 mg PO BEDTIME trazodone 50 mg PO BEDTIME HPI Comments Details: 43-year-old male with psoriatic arthritis returns for follow-up. On Humira 40 mg every other week and methotrexate 15 mg weekly. He recently had a spinal cord stimulator. States that it did not help him as much as he thought it would. He continues to have pain in his PIP is, also gets pain in his heels. States that Humira works well for approximately 1 week the pain returns. He takes Motrin 800 mg daily. Has not had any psoriasis patches recently. Initial history: This is 42-year-old male with past medical history of hypertension, dyslipidemia, type 2 diabetes mellitus, fatty liver, anxiety, bipolar disorder who presents for evaluation of diffuse joint pain. The condition started 3-4 months ago with pain swelling and stiffness of his hands, wrists, elbows & toes. He also has triggering of his index finger. He was evaluated by Orthopedic surgery and found to have significantly elevated inflammatory markers. He was started on a prednisone taper with dramatic improvement of his symptoms however his blood sugar was significantly elevated. Patient currently takes Motrin 800 mg Twice daily with little relief. He states he was diagnosed with psoriasis since he was a child. Usually effects the skin behind his ears and his nails. There is no history suggestive of uveitis or inflammatory bowel disease. Patient has had back pain many years ago since after injury to the back. He had lumbar spine surgery many years ago. He is following up with [facility] and waiting to do an injection in his back. [facility] Medical History Hepatitis B Recurrent erosion of cornea, right eye Psoriasis Hyperlipidemia Anxiety Bipolar 1 disorder Low back pain Fatty liver Obesity SAGE (obstructive sleep apnea) Hypertriglyceridemia Diabetes Surgical History History of back surgery History of lumbar fusion Family History Mother Diverticulosis Fibromyalgia Arthritis Thyroid disease Family/Other Lupus Social History Household Members: Significant Other and Children Alcohol intake: current Alcohol intake frequency: holidays/special occasions only Patient Tobacco Use Status: Current everyday Tobacco user Cigarettes Per Day: 6 Current occupational status: unemployed Current occupation: right hand dominant Review of Systems Musc Reports arthralgias and Reports numbness Skin/Breast Denies rash Neuro Reports numbness and Reports paresthesias Physical Exam Vital Signs: Last Vital Signs Pulse 87 01/21/24 13:58 BP 112/62 01/21/24 13:58 Pulse Ox 98 01/21/24 13:58 BMI result Body Mass Index 33.2 Const General: cooperative, healthy appearing, comfortable, no acute distress and well developed Nutritional Appearance: obese Orientation/consciousness: patient oriented x3 Limitations: no limitations HEENT Head: Yes normocephalic and Yes atraumatic Resp Effort & Inspection: normal respiratory effort and able to speak in complete sentences Skin General skin exam: no rashes or lesions noted Neuro General: patient oriented x3 Extrem Other: No wrist pain swelling or tenderness or pain with full flexion and extension bilaterally Bilateral diffuse PIP tenderness without swelling Negative MCP squeeze test No tender flexor or extensor tendons both hands Negative rotator cuff provocative maneuvers bilaterally Negative Speed's test bilaterally Negative MTP squeeze test Results Reviewed Results Reviewed: Xrays reviewed: X-RAY EXAM OF SHOULDER, COMPLETE ? Result Date: 05/09/2022 Bilateral shoulders, 4 views of each HISTORY: Bilateral shoulder pain and stiffness COMMENT: 4 views. Compared with prior study of the left shoulder from 05/15/2018. There are mild degenerative changes in the AC joints bilaterally. There is no visible fractures, dislocations or abnormal soft tissue calcifications. Alignment is satisfactory. CONCLUSIONS: Mild degenerative changes in the AC joints. ? X-RAY EXAM OF FOOT, COMPLETE (3 VIEWS) ? Result Date: 05/09/2022 Bilateral feet, 3 views of each. Comparison with prior study from 04/14/2021. There is no evidence of fractures, dislocations or destructive lesions. There are bilateral tiny calcaneal spurs. There is no significant interval change since previous examination. CONCLUSIONS: Tiny calcaneal spurs. Otherwise unremarkable examination. X-RAY EXAM OF HAND, 3+ VIEWS Exam Date: 04/05/2022 11:50 AM Ordering Diagnosis: Trigger middle finger of right hand ? Right hand, 3 views. ? HISTORY: Right hand pain, most prominent in the middle finger. There is periarticular osteopenia. There is no visible fractures, dislocations, bony erosions or abnormal soft tissue calcifications. ? CONCLUSIONS: Periarticular osteopenia. Otherwise unremarkable examination. ? Reading Radiologist: Uric Acid 05/04/2022 4.0 3.7 - 9.2 mg/dL Final ? RHEUMATOID FACTOR 05/04/2022 < 10 <15 IU/mL Final ? ANTI-NUCLEAR ANTIBODY SCREEN 05/04/2022 NEGATIVE NEGATIVE Final ? ERYTHROCYTE SEDIMENTATION RATE 05/04/2022 59 (A) 0 - 15 mm/hr Final ? WHITE BLOOD COUNT 05/04/2022 12.1 (A) 4.8 - 10.8 x10-3/uL Final ? RED BLOOD COUNT 05/04/2022 4.4 (A) 4.5 - 5.5 x10-6/uL Final ? Hemoglobin 05/04/2022 13.8 13.5 - 17.5 g/dL Final ? Hematocrit 05/04/2022 41.9 (A) 42 - 54 % Final ? MEAN CORPUSCULAR VOLUME 05/04/2022 95.7 79 - 98 fL Final ? MEAN CORPUSCULAR HEMOGLOBIN 05/04/2022 31.5 27 - 32 pg Final ? MEAN CORPUSCULAR HGB CONC 05/04/2022 32.9 32 - 37 g/dL Final ? RED CELL DISTRIBUTION WIDTH 05/04/2022 12.8 11 - 15 % Final ? PLT COUNT 05/04/2022 432 (A) 130 - 400 x10-3/uL Final ? MEAN PLATELET VOLUME 05/04/2022 9.5 7 - 11 fL Final ? NRBC % AUTO 05/04/2022 0.0 <1 % Final ? NEUTROPHILS % 05/04/2022 64.6 % Final ? LYMPH % 05/04/2022 24.0 % Final ? MONO % 05/04/2022 7.4 % Final ? EOS % 05/04/2022 2.5 % Final ? BASO % 05/04/2022 0.6 % Final ? IMMATURE GRANULOCYTES % 05/04/2022 0.9 % Final ? NRBC # AUTO 05/04/2022 0.00 <0.1 x10-3/uL Final ? NEUT # 05/04/2022 7.84 (A) 1.5 - 7.0 x10-3/uL Final ? LYMPH # 05/04/2022 2.91 1 - 5.0 x10-3/uL Final ? MONO # 05/04/2022 0.90 0.2 - 1.0 x10-3/uL Final ? EOS # 05/04/2022 0.30 0 - 0.5 x10-3/uL Final ? BASO # 05/04/2022 0.07 0 - 0.2 x10-3/uL Final ? IMMATURE GRANULOCYTES # 05/04/2022 0.11 (A) 0 - 0.03 x10-3/uL CAT SCAN OF CHEST NO CONTRAST Exam Date: 06/26/2022 8:47 AM Ordering Diagnosis: Abnormal chest x-rayPleuritic chest pain ? History: Pleuritic chest pain. Possible consolidation on chest x-ray. ? Chest CT: CT of the chest was performed with a 3 mm slice thickness display. 2 mm coronal and axial reconstructions were performed as well. Radiation dose 13.2 mGy. ? Findings: Correlation is made with a chest x-ray dated 06/13/2022. There is some minimal linear scarring at the left lung base which probably accounts for the chest x-ray appearance. There are no alveolar infiltrates or effusions. There are no nodules or masses. The airways are patent. There is no mediastinal or hilar adenopathy. ? There is fatty infiltration of liver. Other structures of the chest and visualized upper abdomen are unremarkable. ? IMPRESSION IMPRESSION: No evidence of active pathology in the chest. Assessment & Plan Assessment & Plan (1) Psoriatic arthritis: Comment: PsA dx 09/11 MTX started 09/11 Humira added 11/09 effective Code(s): L40.50 - Arthropathic psoriasis, unspecified Category: Medical Plan: This is a 43-year-old male with psoriatic arthritis presents for follow-up. On Humira 40 mg every other week and methotrexate 15 mg weekly. Continues to have few tender joints. Nothing swollen today. Inflammatory markers normal. No psoriasis rash Continue Humira 40 mg every other week. Continue methotrexate 15 mg weekly, Continue folic acid 1 mg daily Will consider advancing Humira to every week in the future Labs before next visit in 3 months Infectious screening hepatitis panel and T spot -ve 2023 (2) Methotrexate, long-term, current use: Code(s): Z79.631 - retirement (current) use of antimetabolite agent Category: Medical Plan: Monitor safety labs (3) Paresthesia of hand, bilateral: Code(s): R20.2 - Paresthesia of skin Category: Medical Plan: Bilateral cubital tunnel tunnel syndrome. Patient is scheduled for left cubital tunnel release 01/30. Patient to continue methotrexate and folic acid all through. Patient received his Humira 01/20/2024. Advised patient to skip the next Humira dose, then continue Humira per schedule every 2 weeks Plan I spent 25 minutes reviewing patient's chart, evaluating patient, ordering diagnostic workup, counseling patient and documenting in the chart Orders: Orders Comprehensive Met. Panel 3 Months L40.50 - Arthropathic psoriasis, unspecified, Z79.631 - buttermaker continuous churn (current) use of antimetabolite agent C Reactive Protein 3 Months L40.50 - Arthropathic psoriasis, unspecified, Z79.631 - buttermaker continuous churn (current) use of antimetabolite agent Erythrocyte Sedimentation Rate 3 Months L40.50 - Arthropathic psoriasis, unspecified, Z79.631 - retirement (current) use of antimetabolite agent Complete Blood Count Auto Diff 3 Months L40.50 - Arthropathic psoriasis, unspecified, Z79.631 - buttermaker continuous churn (current) use of antimetabolite agent Coding Level of Care Code Est Pt Level 4 (73022) Diagnoses Psoriatic arthritis L40.50 Methotrexate, emt intermediate, current use Z79.631 Paresthesia of hand, bilateral R20.2
[2024-01-21 13:58] VITALS: BP 112/62; PULSE 87; O2SAT 98; BMI 33.2
== END 2024-01-21 14:17 | disposition home or self-care (01) ==
PROVIDERS: PCP Internal Medicine; Visit Provider Student in an Organized Health Care Education/Training Program
DX: L40.50 Arthropathic psoriasis, unspecified (principal); Z79.631 Long term (current) use of antimetabolite agent; R20.2 Paresthesia of skin
CPT/HCPCS: 99214

== ENCOUNTER → 2024-01-21 13:46 | Outpatient (BNVA) | payer OTHER, SELFPAY | PROVIDERS: PCP Internal Medicine; Visit Provider Student in an Organized Health Care Education/Training Program | DX: L40.50 Arthropathic psoriasis, unspecified (principal); R20.2 Paresthesia of skin; Z79.631 Long term (current) use of antimetabolite agent | CPT/HCPCS: 99212 ==

== ENCOUNTER 2024-01-22 09:19 | Outpatient (AMB) | payer OTHER, SELFPAY ==
--- NOTE | 2024-01-22 09:31 | MHC.OFFVIS ---
Intake Visit Reasons: Preop LT elbow ulnar nerve decomp 01/31/24 AR Intake Note: Ronni 43 yr old male presents today for his Preop visit for his left elbow ulnar nerve decomp/cubital tunnel release scheduled for 01/31/[address] Pugh. Consent reviewed and signed. All questions have been answered. Allergies Seasonal Allergies Allergy (Unknown, Verified 01/22/24 09:52) Unknown HPI HPI Preop LT elbow ulnar nerve decomp 01/31/24 AR: Details: Ronni is a 43 year old right hand dominant man who presents to discuss his bilateral cubital tunnel syndrome. He complains of numbness in his ring & small fingers bilaterally, along with tingling & an aching pain that radiates from his elbow down his ulnar forearms Symptoms intermittent, but daily, worse at night. His primary complaint is of his left hand today. He has a Hx of Diabetes, SAGE, Psoriatic arthritis, and Hepatitis B. He has spoken with Dr. Flannery in regards to his medication. He says his Diabetes is well controlled and his HgA1c was 5.4% in 12/2023. He has lost ~35lbs in the last few months, which has helped manage his Diabetes. He is currently not working due to back pain & his Psoriatic arthritis [facility] Medical History Hepatitis B Recurrent erosion of cornea, right eye Psoriasis Hyperlipidemia Anxiety Bipolar 1 disorder Low back pain Fatty liver Obesity SAGE (obstructive sleep apnea) Hypertriglyceridemia Diabetes Surgical History History of back surgery History of lumbar fusion Family History Mother Diverticulosis Fibromyalgia Arthritis Thyroid disease Family/Other Lupus Social History Household Members: Significant Other and Children Alcohol intake: current Alcohol intake frequency: holidays/special occasions only Patient Tobacco Use Status: Current everyday Tobacco user Cigarettes Per Day: 6 Current occupational status: unemployed Current occupation: right hand dominant Review of Systems Const All systems reviewed & are unremarkable except as noted in HPI and below Physical Exam Const General: cooperative, healthy appearing and no acute distress Orientation/consciousness: patient oriented x3 HEENT Head: Yes normocephalic and Yes atraumatic Eyes EOM: EOMs intact bilaterally Resp Effort & Inspection: normal respiratory effort and able to speak in complete sentences Cardio Jugular venous distension: no JVD Skin General skin exam: turgor normal Rashes: no rashes Neuro General: patient oriented x3 Extrem Other: Evaluation of Left Upper Extremity: The patient is alert, oriented, and in no acute distress Neuro: Median, Ulnar, Radial nerves motor and sensory intact and sensation is normal to the tips of all digits No thenar or intrinsic wasting Good APB muscle belly firing and good finger cross Vascular: Cap refill brisk ROM: He can make a fist and extend all his digits Good elbow flexion & extension, without subluxation of the ulnar nerve Skin: No lacerations or abrasions. General: No Ecchymosis. No Erythema or evidence of infection. Nerve Conduction Study: Moderate bilateral cubital tunnel syndrome Jasencierra 08/01/23 Psych Appearance: grossly normal Affect: normal affect Attitude: cooperative Assessment & Plan Assessment & Plan (1) Cubital tunnel syndrome on left: Code(s): G56.22 - Lesion of ulnar nerve, left upper limb Category: Medical (2) Cubital tunnel syndrome on right: Code(s): G56.21 - Lesion of ulnar nerve, right upper limb Category: Medical (3) Hepatitis B: Code(s): B19.10 - Unspecified viral hepatitis B without hepatic coma Category: Medical (4) Psoriatic arthritis: Comment: PsA dx 09/11 MTX started 09/11 Humira added 11/09 effective Code(s): L40.50 - Arthropathic psoriasis, unspecified Category: Medical (5) Diabetes: Code(s): E11.9 - Type 2 diabetes mellitus without complications Category: Medical Plan Assessment & Plan: 1. Left cubital tunnel syndrome, moderate Symptoms intermittent, but daily, worse at night This is his primary complaint today 2. Right cubital tunnel syndrome, moderate Symptoms intermittent, but daily, worse at night. I educated her about this condition I discussed operative and non-operative treatment options The patient would like to proceed with surgery, beginning with the left side We can discuss treatment for his right side when he has recovered from surgery I explained that the surgery is meant to treat his numbness, but is not likely to resolve the aching in his forearms, and he expressed understanding. The risks and benefits of operative treatment were discussed with the patient and the patient wishes to proceed with surgery. These risks include, but are not limited to risk of damage to blood vessels, nerves, tendons, infection, recurrence, incomplete relief of preoperative symptoms, persistent pain, possible need for further surgery and the risks associated with regional blocks and anesthesia. The plan is to take the patient to the operating room sometime on 01/31/24 for the following procedures: 1. Left cubital tunnel release vs transposition, under general All of the preoperative paperwork including the consent was reviewed today. All the patient's questions were answered. The patient understands that they will be contacted by our oral surgery technician soon to schedule this procedure He denies blood thinners, asthma, heart, lung, kidney issues He is a Diabetic, and his HgA1c was 5.4% in 12/2023. He has a Hx of Hepatitis B & Psoriatic arthritis. Per Dr. flannery's note from 01/21/24: Patient to continue methotrexate and folic acid all through. Patient received his Humira 01/20/2024. Advised patient to skip the next Humira dose, then continue Humira per schedule every 2 weeks Scribed for Nabila Pugh MD by Armando Hawthorne, medical reimbursement specialist, on 01/22/24 at 10:10 AM, EST. Coding Level of Care Code Est Pt Level 4 (45775) Diagnoses Cubital tunnel syndrome on left G56.22 Cubital tunnel syndrome on right G56.21 Hepatitis B B19.10 Psoriatic arthritis L40.50 Diabetes E11.9
== END 2024-01-22 10:34 | disposition home or self-care (01) ==
PROVIDERS: PCP Internal Medicine; Visit Provider Orthopaedic Surgery
DX: G56.22 Lesion of ulnar nerve, left upper limb (principal); G56.21 Lesion of ulnar nerve, right upper limb; B19.10 Unspecified viral hepatitis B without hepatic coma; L40.50 Arthropathic psoriasis, unspecified; E11.9 Type 2 diabetes mellitus without complications
CPT/HCPCS: 99214

== ENCOUNTER → 2024-01-22 09:19 | Outpatient (BNVA) | payer OTHER, SELFPAY | PROVIDERS: PCP Internal Medicine; Visit Provider Orthopaedic Surgery | DX: Z01.818 Encounter for other preprocedural examination (principal); G56.22 Lesion of ulnar nerve, left upper limb; G56.21 Lesion of ulnar nerve, right upper limb; B19.10 Unspecified viral hepatitis B without hepatic coma; L40.50 Arthropathic psoriasis, unspecified; E11.9 Type 2 diabetes mellitus without complications | CPT/HCPCS: 99212 ==

== ENCOUNTER 2024-01-31 09:03 | Day surgery (SDC) | payer OTHER, SELFPAY ==
[2024-01-29 07:26] VITALS: BMI 31.6
--- NOTE | 2024-01-29 15:05 | HO.ANESPROP2 ---
Documented by User: Mesha Weir NP 01/29/24 15:07 HPI - Anesthesia Eval Consult details Narrative: 43yo M for Left Elbow Cubital Tunnel Release ? spinal stim in situ Psoriatic arthritis with Humira and Methotrexate Anesthesia Pre-Procedure Meds Is the patient on any of the following meds?: GLP1/DPP4 PMFSH Active Problems Active Problems: All Active Problems Cubital tunnel syndrome on right (Acute) Diabetes (Acute) Cubital tunnel syndrome on left (Acute) Hepatitis B (Acute) Cubital tunnel syndrome, bilateral (Acute) Immunization counseling (Acute) Methotrexate, halfway, current use (Acute) Low back pain (Acute) Psoriatic arthritis (Acute) Past Medical History Medical History Hepatitis B Recurrent erosion of cornea, right eye Psoriasis Hyperlipidemia Anxiety Bipolar 1 disorder Low back pain Fatty liver Obesity SAGE (obstructive sleep apnea) Hypertriglyceridemia Diabetes Family History Family History Mother Diverticulosis Fibromyalgia Arthritis Thyroid disease Family/Other Lupus Surgical History Surgical History History of back surgery History of lumbar fusion Social History Social History Household Members: Significant Other and Children Alcohol intake: current Alcohol intake frequency: holidays/special occasions only Patient Tobacco Use Status: Current everyday Tobacco user Tobacco use type: Smokeless Tobacco Cigarettes Per Day: 6 Date Education Initiated: 01/31/24 Use of substances other than those prescribed or required for medical reasons: No Are you DNR?: No Advance Directives: No Advance Directives Information Provided: Yes Current occupational status: unemployed Current occupation: right hand dominant Meds Allergies Allergy/AdvReac Type Severity Reaction Status Date / Time Seasonal Allergies Allergy Unknown Unknown Verified 01/31/24 09:20 Home Medications ?Medication ?Instructions ?Recorded ?Confirmed ?Last Taken ?Type albuterol sulfate 90 mcg/actuation 2 puff inhalation Q6H PRN 07/24/22 01/31/24 Unknown History aerosol inhaler (ProAir HFA) Shortness Of Breath Or Wheezing aripiprazole 20 mg tablet 20 mg PO BEDTIME 07/24/22 01/31/24 Unknown History atorvastatin 20 mg tablet 20 mg PO DAILY 07/24/22 01/31/24 Unknown History fenofibrate 54 mg tablet 54 mg PO DAILY 07/24/22 01/31/24 Unknown History perphenazine 2 mg tablet 2 mg PO BEDTIME 07/24/22 01/31/24 Unknown History fluticasone propionate 50 1 spray intranasal DAILY 08/02/22 01/31/24 Unknown History mcg/actuation nasal spray,suspension loratadine 10 mg tablet 10 mg PO DAILY 08/02/22 01/31/24 Unknown History dulaglutide 1.5 mg/0.5 mL 1.5 mg subcut QWEEK 08/25/22 01/31/24 01/24/24 History subcutaneous pen injector (Trulicity) insulin glargine 100 unit/mL (3 30 unit subcut BEDTIME 01/12/23 01/31/24 Unknown History mL) subcutaneous pen (Lantus Solostar U-100 Insulin) trazodone 50 mg tablet 50 mg PO BEDTIME 01/12/23 01/31/24 Unknown History Exam Height,Weight and Vital Signs: Height 5 ft 6 in Weight 88.904 kg Pertinent Lab Results Pertinent Lab Results: Laboratory Tests 01/10/24 13:44 WBC 6.9 Hgb 13.4 L Hct 39.2 L Plt Count 271 Sodium 144 Potassium 3.7 Chloride 108 Carbon Dioxide 26 BUN 21 H Creatinine 0.72 Assessment and Plan Assessment Anesthesia Assessment: Chart Reviewed Documented by User: Chelle Reynaga MD 01/31/24 10:33 PMFSH Past Medical History Medical History Hepatitis B Recurrent erosion of cornea, right eye Psoriasis Hyperlipidemia Anxiety Bipolar 1 disorder Low back pain Fatty liver Obesity SAGE (obstructive sleep apnea) Hypertriglyceridemia Diabetes Family History Family History Mother Diverticulosis Fibromyalgia Arthritis Thyroid disease Family/Other Lupus Family history of problems with anesthesia: No Surgical History Surgical History History of back surgery History of lumbar fusion Social History Social History Household Members: Significant Other and Children Alcohol intake: current Alcohol intake frequency: holidays/special occasions only Patient Tobacco Use Status: Current everyday Tobacco user Tobacco use type: Smokeless Tobacco Cigarettes Per Day: 6 Date Education Initiated: 01/31/24 Use of substances other than those prescribed or required for medical reasons: No Are you DNR?: No Advance Directives: No Advance Directives Information Provided: Yes Current occupational status: unemployed Current occupation: right hand dominant Meds Allergies Allergy/AdvReac Type Severity Reaction Status Date / Time Seasonal Allergies Allergy Unknown Unknown Verified 01/31/24 09:20 Home Medications ?Medication ?Instructions ?Recorded ?Confirmed ?Last Taken ?Type albuterol sulfate 90 mcg/actuation 2 puff inhalation Q6H PRN 07/24/22 01/31/24 Unknown History aerosol inhaler (ProAir HFA) Shortness Of Breath Or Wheezing aripiprazole 20 mg tablet 20 mg PO BEDTIME 07/24/22 01/31/24 Unknown History atorvastatin 20 mg tablet 20 mg PO DAILY 07/24/22 01/31/24 Unknown History fenofibrate 54 mg tablet 54 mg PO DAILY 07/24/22 01/31/24 Unknown History perphenazine 2 mg tablet 2 mg PO BEDTIME 07/24/22 01/31/24 Unknown History fluticasone propionate 50 1 spray intranasal DAILY 08/02/22 01/31/24 Unknown History mcg/actuation nasal spray,suspension loratadine 10 mg tablet 10 mg PO DAILY 08/02/22 01/31/24 Unknown History dulaglutide 1.5 mg/0.5 mL 1.5 mg subcut QWEEK 08/25/22 01/31/24 01/24/24 History subcutaneous pen injector (Trulicity) insulin glargine 100 unit/mL (3 30 unit subcut BEDTIME 01/12/23 01/31/24 Unknown History mL) subcutaneous pen (Lantus Solostar U-100 Insulin) trazodone 50 mg tablet 50 mg PO BEDTIME 01/12/23 01/31/24 Unknown History Exam Airway Mallampati Class: II TM Dist: >3cm Neck ROM: Limited Heart: rrr Lungs: cta Assessment and Plan Assessment Anesthesia Assessment: Anesthesia Plan Discussed Final Anesthetic Review Family History of Problems with Anesthesia: No NPO: Yes ASA Class: III Final Preanesthetic Review: No Changes in Pt Med Stat, Meds/Allgs Chart Reviewed, Consent Obtained/Reviewed and Anes Risks/Benef Reviewed Patient Risk: Intermediate Procedure Risk: Low Anesthetic Plan Anesthetic Plan: GA Disposition: Standard PACU
--- NOTE | 2024-01-31 09:29 | PC.NURSE ---
Adam called to verify CPAP-confirmation number [id number]
[2024-01-31 09:30] VITALS: BMI 32.9
--- NOTE | 2024-01-31 09:51 | MHC.SHP ---
Pre-Procedural Eval Section A - 24 Hr Update-Section A only Date of Service: 01/31/24 The patient is an INPATIENT: No Changes since office visit: No Cold of Flu in the past 2 weeks, No New Medical Problems, No Changes in Medication and No Patient answered all questions The patient has been examined within 24 hours of the surgical procedure. The History & Physical has been completed within 30 days and I have reviewed it.: Yes Section B - Complete if H&P > 30 days Chief Complaint: Lesion of ulnar nerve, left upper limb Allergies: Allergies Allergy/AdvReac Type Severity Reaction Status Date / Time Seasonal Allergies Allergy Unknown Unknown Verified 01/31/24 09:20 Exam Exam Comment: Left cubital tunnel syndrome Plan Diagnosis/Plan: Unchanged I have reviewed the history and physical and performed a pertinent physical examination on my patient. No changes have occurred unless specified. Time Spent With Patient Time: Total time managing care of this patient today ____ minutes.
--- NOTE | 2024-01-31 09:51 | W.PM.OPN ---
Operative Note Operative Note Date of Service: 01/31/24 Narrative: Operative Note Narrative: Preop diagnosis: 1. Left Cubital tunnel syndrome Postop diagnosis: Same Procedure: 1. Left Cubital Tunnel Release Surgeon: Nabila Pugh MD Anesthesia: General Anesthesia Findings: Thickening and fibrosis about the ulnar nerve at the cubital tunnel Implants: none Tourniquet time: 13 minutes EBL: 5.0 ml Specimen: none Drains: None Complications: None Disposition: Brought to the recovery room in stable condition Plan: Follow-up in 10-14 days for wound check, and suture removal Indications: The patient is 43 years old with left cubital tunnel syndrome . The risks and benefits of operative treatment, including but not limited to risk of damage to blood vessels, nerves, tendons, infection, recurrence, persistent pain or numbness, incomplete resolution of preoperative symptoms, or need for further surgery were discussed with the patient and they wished to proceed with surgery. Procedure: Once consent was obtained patient was brought back to the operating suite and placed in the operating table in a supine position. Perioperative antibiotics and anesthesia was administered by the anesthesia team. The limb was prepped and draped in a standard surgical fashion, and a sterile tourniquet applied to the proximal aspect of the left upper extremity. The limb was elevated exsanguinated with Esmarch bandage and the tourniquet inflated to 250 mm of mercury for a total tourniquet time of 13 minutes. A 6 cm gently curved but longitudinally oriented incision was made centered over the cubital tunnel of the left upper extremity. Incision was made through the skin to the subcutaneous tissues using a # 15 Blade. I then dissected down to the level of the medial epicondyle and the cubital tunnel using tenotomy scissors. Care was taken to protect the medial antebrachial cutaneous nerve. The ulnar nerve was identified just posterior to the medial intermuscular septum. The ulnar nerve was released in a proximal to distal direction using tenotomy in iris scissors while directly visualizing and protecting the ulnar nerve. Thickening and fibrosis was appreciated about the ulnar nerve as it passed through the cubital tunnel. The ulnar nerve was assessed as I passed the elbow through full flexion and extension and was found to remain stable within its groove. At this point the tourniquet was deflated and hemostasis obtained with a brief period of local pressure and bipolar electrocautery. The wound was copiously irrigated with normal saline. The subcutaneous layer was closed with 4-0 Vicryl suture, and the skin edges were reapproximated with 4-0 Monocryl subcuticular closure with Steri-Strips and Mastisol. The wound was infiltrated with some 0.5% plain ropivacaine for postop pain control and sterile dressings and a posterior splint was applied. The patient appears to have tolerated the procedure well and with no complications. All digits were well vascularized at the conclusion of the case.
[2024-01-31 09:52] VITALS: BP 114/65; PULSE 60; RESP 18; TEMP 36.1; O2SAT 100
[2024-01-31 09:52] LABS: Glucose, Whole Blood 83 mg/dL (60-115)
[2024-01-31] MEDS: Lactated Ringers 1,000 ML 100 ML IVCONT (09:58)
--- NOTE | 2024-01-31 12:32 | PC.NURSE ---
late entry for 1210. dr. Nikki Beth aware that transposition needs to be added to order, and stated she would go enter. refreshing and text to dr. nikki beth at 1220, [place] [facility] [place] at desk, had not placed order, visual of placing order. delay to or.
[2024-01-31 13:43] VITALS: BP 104/54; PULSE 68; RESP 18; TEMP 36.6; O2SAT 98
[2024-01-31 13:48] VITALS: BP 101/60; PULSE 63; RESP 16; O2SAT 96
[2024-01-31 13:53] VITALS: BP 111/60; PULSE 69; RESP 14; O2SAT 96
[2024-01-31 13:58] VITALS: BP 102/57; PULSE 66; RESP 15; O2SAT 97
[2024-01-31 14:13] VITALS: BP 110/61; PULSE 63; RESP 16; TEMP 36.1; O2SAT 98
== END 2024-01-31 14:30 | disposition home or self-care (01) ==
PROVIDERS: PCP Internal Medicine; Visit Provider Orthopaedic Surgery
PROC: (CPT 64718; principal; 2024-01-31 11:20)
DX: G56.22 Lesion of ulnar nerve, left upper limb (principal); E11.9 Type 2 diabetes mellitus without complications; G47.33 Obstructive sleep apnea (adult) (pediatric)
CPT/HCPCS: 64718; 82947; J0131; J0690; J1100; J2405; J2704; J2795; J3010

== ENCOUNTER → 2024-01-31 09:03 | Outpatient (BNV) | payer OTHER, SELFPAY | PROVIDERS: PCP Internal Medicine; Visit Provider Orthopaedic Surgery | DX: G56.22 Lesion of ulnar nerve, left upper limb (principal) | CPT/HCPCS: 64718 ==

== ENCOUNTER 2024-02-13 12:07 | Outpatient (AMB) | payer OTHER, SELFPAY ==
--- NOTE | 2024-02-13 12:21 | MHC.OFFVIS ---
Vital Signs 02/13/24 12:26 Height 5 ft 6 in Weight 197 lb BMI 31.8 Handedness Right Intake Visit Reasons: PO LT elbow ulnar nerve decomp 01/31/24 AR Intake Note: Ronni is a 43 year old right hand male who presents today post operatively for Left Cubital Tunnel Release 01/31/24 AR. Patient reports he is doing well, he removed his dressing last night due to sweat and it was itching. He expresses he still has mild numbness and tingling. Sutures removed and steri strips have been applied. Allergies Seasonal Allergies Allergy (Unknown, Verified 02/13/24 12:26) Unknown HPI HPI PO LT elbow ulnar nerve decomp 01/31/24 AR: Details: Ronni is a 43 year old right hand dominant man who returns S/P left cubital tunnel release, DOS: 01/31/24. He says he is doing well overall. He says he had an episode of tingling yesterday, but this resolved and his sensation overall has improved somewhat since surgery. He reports removing his dressing last night due to the heat making him sweat and his incision feel itchy . In regards to his right hand, he continues to have intermittent, but daily, numbness in the ulnar nerve distribution. [facility] Medical History Hepatitis B Recurrent erosion of cornea, right eye Psoriasis Hyperlipidemia Anxiety Bipolar 1 disorder Low back pain Fatty liver Obesity SAGE (obstructive sleep apnea) Hypertriglyceridemia Diabetes Surgical History History of back surgery History of lumbar fusion Family History Mother Diverticulosis Fibromyalgia Arthritis Thyroid disease Family/Other Lupus Social History Household Members: Significant Other and Children Alcohol intake: current Alcohol intake frequency: holidays/special occasions only Patient Tobacco Use Status: Current everyday Tobacco user Tobacco use type: Smokeless Tobacco Cigarettes Per Day: 6 Current occupational status: unemployed Current occupation: right hand dominant Review of Systems Const All systems reviewed & are unremarkable except as noted in HPI and below Physical Exam Vital Signs: BMI result Body Mass Index 31.8 Const General: no acute distress and alert Orientation/consciousness: patient oriented x3 Neuro General: patient oriented x3 Extrem Other: The patient was alert oriented and in no acute distress The incision is healing well with no erythema drainage or evidence of infection. Sutures removed and Steri-Strips applied He can make a fist and extend all his digits Sensation is improved and now normal in the ulnar nerve distribution Cap refill is brisk Nerve Conduction Study: Moderate bilateral cubital tunnel syndrome Izzy 08/01/23 Psych Appearance: grossly normal Affect: normal affect Attitude: cooperative Assessment & Plan Assessment & Plan (1) Cubital tunnel syndrome on left: Code(s): G56.22 - Lesion of ulnar nerve, left upper limb Category: Medical (2) Cubital tunnel syndrome on right: Code(s): G56.21 - Lesion of ulnar nerve, right upper limb Category: Medical (3) Hepatitis B: Code(s): B19.10 - Unspecified viral hepatitis B without hepatic coma Category: Medical (4) Psoriatic arthritis: Comment: PsA dx 09/11 MTX started 09/11 Humira added 11/09 effective Code(s): L40.50 - Arthropathic psoriasis, unspecified Category: Medical (5) Diabetes: Code(s): E11.9 - Type 2 diabetes mellitus without complications Category: Medical Plan Assessment & Plan: 1. Left cubital tunnel syndrome, S/P release DOS: 01/31/24 Pre-operative symptoms intermittent, but daily, worse at night Now with normal sensation The patient appears to be doing well post-operatively I educated him about the post-operative course I explained the signs and symptoms of infection I discussed activity modifications, he is to lift nothing heavier than a cellphone for the next two weeks He will perform gentle ROM exercises at home He should avoid any underwater activities for the next 5 days He should gently massage about the incision site to reduce the risk of hypersensitivity He can restart his Humira in a week 2. Right cubital tunnel syndrome, moderate Symptoms intermittent, but daily, worse at night. I educated him about this condition I discussed operative and non-operative treatment options He would like to follow up in the next few months to possibly discuss surgery Scribed for Nabila Pugh MD by Armando Hawthorne, medical receptionist medical assistant, on 02/13/24 at 12:45 PM, EST. Scribe Plan - Not visible on output: Scribed for Nabila Pugh MD by Armando Hawthorne, medical receptionist medical assistant, on [ ] at [ ], EST. Coding Level of Care Code Global (60258) Diagnoses Cubital tunnel syndrome on left G56.22 Cubital tunnel syndrome on right G56.21 Hepatitis B B19.10 Psoriatic arthritis L40.50 Diabetes E11.9
[2024-02-13 12:26] VITALS: BMI 31.8
== END 2024-02-13 12:44 | disposition home or self-care (01) ==
PROVIDERS: PCP Internal Medicine; Visit Provider Orthopaedic Surgery
DX: G56.22 Lesion of ulnar nerve, left upper limb (principal); G56.21 Lesion of ulnar nerve, right upper limb; B19.10 Unspecified viral hepatitis B without hepatic coma; L40.50 Arthropathic psoriasis, unspecified; E11.9 Type 2 diabetes mellitus without complications
CPT/HCPCS: 99024

== ENCOUNTER → 2024-02-13 12:07 | Outpatient (BNVA) | payer OTHER, SELFPAY | PROVIDERS: PCP Internal Medicine; Visit Provider Orthopaedic Surgery | DX: Z48.811 Encounter for surgical aftercare following surgery on the nervous system (principal); G56.21 Lesion of ulnar nerve, right upper limb; B19.10 Unspecified viral hepatitis B without hepatic coma; E11.9 Type 2 diabetes mellitus without complications; L40.50 Arthropathic psoriasis, unspecified; Z98.890 Other specified postprocedural states | CPT/HCPCS: 99212 ==

== ENCOUNTER 2024-04-30 13:31 | Outpatient (REF) | payer OTHER, SELFPAY ==
[2024-04-30 15:59] LABS: MANUAL DIFF FLAG NO
[2024-04-30 16:05] LABS: Basophils Percent Auto 0.5 % (0-2); Eosinophils Absolute Auto 0.1 X10*3/uL (0.0-0.4); Eosinophils Percent Auto 1.5 % (0-4); Hematocrit 43.2 % (42.0-52.0); Hemoglobin 14.8 g/dl (14.0-18.0); Imm Gran Abs Auto 0.03 X10*3/uL (0.00-0.03); Imm Gran Pct Auto 0.5 % (0.0-0.4); Lymphocytes Absolute Auto 2.2 X10*3/uL (1.2-4.9); Lymphocytes Percent Auto 35.4 % (20-40); Mean Corpuscular HGB Conc 34.3 g/dl (31.0-36.0); Mean Corpuscular Hemoglobin 32.4 pg (27.0-33.0); Mean Corpuscular Volume 94.5 fL (80.0-98.0); Mean Platelet Volume 9.6 fL (9.4-12.4); Monocytes Absolute Auto 0.4 X10*3/uL (0.1-1.2); Monocytes Percent Auto 7.2 % (2-11); Neutrophils Absolute Auto 3.4 x10*3/uL (2.0-8.3); Neutrophils Percent Auto 54.9 % (45-73); Platelet Count 296 X10*3/uL (160-400); Red Blood Count 4.57 X10*6/uL (4.60-5.80); Red Cell Distribution Width 13.5 % (11.0-16.0); White Blood Count 6.1 X10*3/uL (4.8-10.8)
[2024-04-30 16:21] LABS: Alanine Aminotransferase 17 U/L (0-40); Alkaline Phosphatase 78 U/L (39-117); Anion Gap 9 (12-20); Aspartate Amino Transferase 16 U/L (5-37); Bilirubin Total 0.4 mg/dL (0.0-1.0); Blood Urea Nitrogen 16 mg/dL (9-16); C Reactive Protein 0.22 mg/dL (< or = 0.50); Calcium 9.1 mg/dL (8.4-10.2); Carbon Dioxide 28 mmol/L (22-29); Chloride 108 mmol/L (96-108); Estimated Glomerular Filt Rate > 60; Glucose Random 121 mg/dL (60-115); Potassium 3.8 mmol/L (3.3-5.1); Sodium 141 mmol/L (135-145); Total Protein 7.1 g/dL (6.5-8.0)
[2024-04-30 16:45] LABS: Erythrocyte Sedimentation Rate 7 MM/HR (0-15)
== END 2024-04-30 13:32 | disposition home or self-care (01) ==
LOC: HO.HMGCLDS 13:31
PROVIDERS: PCP Internal Medicine; Visit Provider Student in an Organized Health Care Education/Training Program
DX: L40.50 Arthropathic psoriasis, unspecified (principal); Z79.631 Long term (current) use of antimetabolite agent
CPT/HCPCS: 36415; 80053; 85025; 85652; 86140

== ENCOUNTER 2024-08-19 13:18 | Outpatient (AMB) | payer OTHER, SELFPAY ==
[2024-08-19 13:21] VITALS: BP 110/72; PULSE 87; BMI 32.2
--- NOTE | 2024-08-19 13:21 | MHC.OFFVIS ---
Vital Signs 08/19/24 13:21 Height 5 ft 6 in Weight 199 lb 4.766 oz BMI 32.2 BP 110/72 Blood Pressure Location Rt brachial Position Sitting Pulse 87 Pulse Source Pulse Oximeter Intake Visit Reasons: PSA Intake Note: Patient present today for PSA office visit. 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 Required: No Accompanied by: Self / Same As Patient Allergies Seasonal Allergies Allergy (Unknown, Verified 08/19/24 13:25) Unknown Medication List - Last Reconciled 08/19/24 by Yvette Rosario MD acetaminophen ER (Tylenol Arthritis Pain) 650 mg PO Q8H PRN albuterol sulfate 90 mcg/actuation (ProAir HFA) 2 puffs inhalation Q6H PRN aripiprazole 20 mg PO BEDTIME atorvastatin 20 mg PO DAILY dextroamphetamine-amphetamine 15 mg (Adderall) 15 mg PO DAILY dulaglutide (Trulicity) 1.5 mg subcut QWEEK fenofibrate 54 mg PO DAILY fluticasone propionate 50 mcg/actuation 1 spray intranasal DAILY folic acid 1 mg PO DAILY Humira(CF) Pen (adalimumab) 40 mg (0.4 mL) subcut Q2W NS ibuprofen 800 mg PO Q12H PRN insulin glargine (Lantus Solostar U-100 Insulin) 30 units subcut BEDTIME loratadine 10 mg PO DAILY methotrexate sodium 12.5 mg (5 x 2.5 mg) PO QWEEK perphenazine 2 mg PO BEDTIME trazodone 50 mg PO BEDTIME HPI Comments Details: 44-year-old male with psoriatic arthritis returns for follow-up. On Humira 40 mg every other week and methotrexate 15 mg weekly. He states that has been doing reasonably well overall. He states that he gets episodes of throbbing pain in his fingers. Denies any joint swelling. He is s/p left cubital tunnel release 01/2024 with improvement of tingling and numbness of his left hand. He does have right side cubital tunnel syndrome but it was not particularly symptomatic for him at this point and not interested in surgery. Denies any psoriasis rashes. He states that he finally got approved for disability due to his back pain. Initial history: This is 42-year-old male with past medical history of hypertension, dyslipidemia, type 2 diabetes mellitus, fatty liver, anxiety, bipolar disorder who presents for evaluation of diffuse joint pain. The condition started 3-4 months ago with pain swelling and stiffness of his hands, wrists, elbows & toes. He also has triggering of his index finger. He was evaluated by Orthopedic surgery and found to have significantly elevated inflammatory markers. He was started on a prednisone taper with dramatic improvement of his symptoms however his blood sugar was significantly elevated. Patient currently takes Motrin 800 mg Twice daily with little relief. He states he was diagnosed with psoriasis since he was a child. Usually effects the skin behind his ears and his nails. There is no history suggestive of uveitis or inflammatory bowel disease. Patient has had back pain many years ago since after injury to the back. He had lumbar spine surgery many years ago. He is following up with [facility] and waiting to do an injection in his back. [facility] Medical History Hepatitis B Recurrent erosion of cornea, right eye Psoriasis Hyperlipidemia Anxiety Bipolar 1 disorder Low back pain Fatty liver Obesity SAGE (obstructive sleep apnea) Hypertriglyceridemia Diabetes Surgical History History of back surgery History of lumbar fusion Family History Mother Diverticulosis Fibromyalgia Arthritis Thyroid disease Family/Other Lupus Social History Household Members: Significant Other and Children Alcohol intake: current Alcohol intake frequency: holidays/special occasions only Patient Tobacco Use Status: Current everyday Tobacco user Tobacco use type: Smokeless Tobacco Cigarettes Per Day: 6 Current occupational status: unemployed Current occupation: right hand dominant Review of Systems [facility] Reports arthralgias Skin/Breast Denies rash Physical Exam Vital Signs: Last Vital Signs Pulse 87 08/19/24 13:21 BP 110/72 08/19/24 13:21 BMI result Body Mass Index 32.2 Const General: cooperative, healthy appearing, comfortable, no acute distress and well developed Nutritional Appearance: obese Orientation/consciousness: patient oriented x3 Limitations: no limitations HEENT Head: Yes normocephalic and Yes atraumatic Resp Effort & Inspection: normal respiratory effort and able to speak in complete sentences Skin General skin exam: no rashes or lesions noted Neuro General: patient oriented x3 Extrem Other: No wrist pain swelling or tenderness or pain with full flexion and extension bilaterally No PIP swelling or tenderness Very early Heberden's nodes multiple fingers bilaterally Not tender to palpation today Negative MCP squeeze test No tender flexor or extensor tendons both hands Negative rotator cuff provocative maneuvers bilaterally Negative Speed's test bilaterally Negative MTP squeeze test Assessment & Plan Assessment & Plan (1) Psoriatic arthritis: Comment: PsA dx 09/11 MTX started 09/11 Humira added 11/09 effective Code(s): L40.50 - Arthropathic psoriasis, unspecified Category: Medical Plan: This is a 44-year-old male with psoriatic arthritis presents for follow-up. On Humira 40 mg every other week and methotrexate 15 mg weekly. Doing very well overall with no active synovitis. 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 Patient fully aware. Advised patient to seek medical care [facility] if patient has an infection and advised patient to stop the medication until the infection is resolved. Patient received the flu vaccine this season Plan I spent 25 minutes reviewing patient's chart, evaluating patient, ordering diagnostic workup, counseling patient and documenting in the chart Orders: Orders Complete Blood Count Auto Diff 4 Months L40.50 - Arthropathic psoriasis, unspecified, Z79.631 - intermediate manager (current) use of antimetabolite agent C Reactive Protein 4 Months L40.50 - Arthropathic psoriasis, unspecified, Z79.631 - intermediate manager (current) use of antimetabolite agent Complete Blood Count Auto Diff Today L40.50 - Arthropathic psoriasis, unspecified, Z79.631 - [facility] (current) use of antimetabolite agent Comprehensive Met. Panel 4 Months L40.50 - Arthropathic psoriasis, unspecified, Z79.631 - [facility] (current) use of antimetabolite agent Erythrocyte Sedimentation Rate 4 Months L40.50 - Arthropathic psoriasis, unspecified, Z79.631 - intermediate manager (current) use of antimetabolite agent Comprehensive Met. Panel Today L40.50 - Arthropathic psoriasis, unspecified, Z79.631 - intermediate manager (current) use of antimetabolite agent C Reactive Protein Today L40.50 - Arthropathic psoriasis, unspecified, Z79.631 - [facility] (current) use of antimetabolite agent Erythrocyte Sedimentation Rate Today L40.50 - Arthropathic psoriasis, unspecified, Z79.631 - [facility] (current) use of antimetabolite agent Medications: New acetaminophen ER (Tylenol Arthritis Pain) 650 mg PO Q8H PRN 90 tabs 0RF fever or pain Changed From methotrexate sodium 15 mg (6 x 2.5 mg) PO QWEEK 72 tabs 0RF To methotrexate sodium 12.5 mg (5 x 2.5 mg) PO QWEEK 80 tabs 0RF Refilled Humira(CF) Pen (adalimumab) 40 mg (0.4 mL) subcut Q2W 2 ea 3RF NS Coding Level of Care Code Est Pt Level 4 (26172) Complex EM visit Add On G2211 Diagnoses Psoriatic arthritis L40.50 Methotrexate, retirement, current use Z79.631 High risk medication use Z79.89
--- OUTSIDE RECORDS SUMMARY | 2024-08-19 13:21 | XMS_ITS | Patient Health Record ---
Author Organization [facility] Address [address] [place] [address] Care Team Providers Care Motion Picture Critic Name Role Phone Mirlande Dean Primary Care Provider Unavailabl e Allergies Allergen (clinical drug ingredient) Drug/Non Drug Allergy documented on EMR Reaction Allergy Type Onset Date Status seasonal (uncoded) Unknown Allergy A ctive Reason For Referral No Information Medications Medication SIG (Take, Route, Frequency, Duration) Notes Start Date End Date Status metFORMIN HCl 500 MG 1 tablet with a delmar l Orally Once a day Not-Taking Naprosyn 500 MG 1 tablet with food o r milk as needed Orally every 12 hrs prn for 30 days Active Naproxen 250 MG 1 tablet with food o r milk Orally Twice a day for 30 Not-Taking Ibuprofen 600 MG 1 tablet with food o r milk as needed Orally Three times a day Not-Taking Albuterol Sulfate HFA 108 (90 Base) MCG/ACT 2 puffs as needed Inhalation every 6 hrs Active Euflexxa 20 MG/2ML 2 ml Intra-articular for 30 day(s) 04/05/2020 Active Meloxicam 7.5 MG 1-2 tabs Orally Once a day for 30 days 06/28/2019 Not-Taking Abilify 20 MG 1 tablet Orally Once a day Active Fenofibrate Active Methocarbamol 500 MG 1 tablet Orally TID for 30 days 06/28/2019 Active Euflexxa 20 MG/2ML 2 ml Intra-articular q week for 7 days 04/05/2020 Active Cyclobenzaprine HCl 7.5 MG 1 tablet at b edtime Orally Once a day for 30 day(s) 05/01/2020 Active Social History Tobacco Use: Social History Observation Description Date Details (start date - stop date) Current Smoker 08/20/2020 - NA Tobacco Use/Smoking Question Answer Notes Are you a current smoker How often do you smoke cigarettes? every day How many cigarettes a day do you smoke? 6-10 How soon after you wake up d o you smoke your first cigarette? 31-60 minutes Are you interested in quitting? Thinking about q uitting When did you start smoking? 08/20/2020 Problems Problem Type SNOMED Code ICD Code Onset Dates Problem Status W/U Status Risk Notes Problem Primary osteoarthritis (445661189) Unilateral primary osteoarthritis, right knee (M17.11) Active confirmed Problem Lumbosacral spondylosis without myelopathy (19122315) Other spondylosis with radiculopathy, lumbar region (M47.26) Active confirmed Problem Lumbosacral spondylosis without myelopathy (37842516) Spondylosis without myelopathy or radiculopathy, lumbar region (M47.816) Active confirmed Plan Of Treatment No Information Insurance Providers Payer Name Payer Address Payer Phone Subscriber Number Group Number Insured Name Patient Relationship to Insured Coverage Start Date Coverage End Date [facility] [address] [address] [place] [address] [id number] HANS ANTHONY Self - patient is the insured Medical (General) History Medical History History ICD Code Sleep Apnea Bipolar disorder Obesity Fatti Liver Chronic back pain Depression Hyperlipedemia Surgical History Surgery Date(Month/Year) Hx Back Surgery L4-L5 Fusion
== END 2024-08-19 13:40 | disposition home or self-care (01) ==
PROVIDERS: PCP Internal Medicine; Visit Provider Student in an Organized Health Care Education/Training Program
DX: L40.50 Arthropathic psoriasis, unspecified (principal); Z79.631 Long term (current) use of antimetabolite agent; Z79.899 Other long term (current) drug therapy
CPT/HCPCS: 99214; G2211

== ENCOUNTER → 2024-08-19 13:18 | Outpatient (BNVA) | payer OTHER, SELFPAY | PROVIDERS: PCP Internal Medicine; Visit Provider Student in an Organized Health Care Education/Training Program | DX: L40.50 Arthropathic psoriasis, unspecified (principal); Z79.631 Long term (current) use of antimetabolite agent; Z79.899 Other long term (current) drug therapy | CPT/HCPCS: 99212 ==

== ENCOUNTER 2024-11-05 10:46 | Outpatient (REF) | payer MEDICAID, SELFPAY ==
--- OUTSIDE RECORDS SUMMARY | 2024-11-05 12:53 | XMS_ITS | Encounter Summary ---
Author Organization [facility] Address [address] [place] [address] Care Team Providers Care Coal Sample Tester Name Role Phone Mirlande Dean MD Primary Care Provider [phone] Reason for Visit * Reason Onset Date Comments refill request 10/24/2022 Encounter Details Date Type Department Care Team Description 10/24/2022 Telephone Endocrinology - [address] [id number] Mackenzie Hoffman PA-C [address] [place] [address] refill request Social History Tobacco Use Types Packs/Day Years Used Date Smoking Tobacco: Every Day Cigarettes 0.3 Smokeless Tobacco: Never Alcohol Use Standard Drinks/Week Comments Yes 0 (1 standard drink = 0.6 oz pur e alcohol) Rare Sex Assigned at Date Recorded Male 07/03/2023 9:[address] Job Start Date Occupation Industry Not on file Not on file Not on file COVID-19 Exposure Response Date Recorded In the last 10 days, have yo u been in contact with someone who was confirmed or suspected to have Coronavirus/COVID-19? No / Unsure 10/20/2022 10:15 AM EST documented as of this encounter Miscellaneous Notes * Telephone Encounter - Yenny Rico - 10/24/2022 2:29 PM EST Med name: BD PEN NEEDLES Dosage: 1 # of tablets: N/A Local pharmacy with request for 30 -day supply Instructions: N/A Did you check the pharmacy information above?: YES Patients current insurance carrier: Payor: [facility] FFS / Plan: [facility] / Product Type: MEDICAID RISK Request from [facility] [phone] [phone] documented in this encounter Plan of Treatment Not on file documented as of this encounter Visit Diagnoses Not on filedocumented in this encounter Care Teams Coal Sample Tester Relationship Specialty Start Date End Date Mirlande Dean MD [address] [place] [id number] PCP - General Internal Medicine 11/02/17 documented as of this encounter
--- OUTSIDE RECORDS SUMMARY | 2024-11-05 12:53 | XMS_ITS | Encounter Summary ---
Author Organization [facility] Address [address] [place] [address] Care Team Providers Care Training Systems Officer Name Role Phone Mirlande Dean MD Primary Care Provider [phone] Reason for Visit * Reason Onset Date Comments Appointment-Internal Referral 12/14/2020 En docrinology Encounter Details Date Type Department Care Team Description 12/14/2020 Telephone Adult Medicine [facility] [address] [place] [id number] [facility] [address] [place] [phone] Appointment-Internal Referral (Endocrinology) Social History Tobacco Use Types Packs/Day Years Used Date Smoking Tobacco: Never Smokeless Tobacco: Never Alcohol Use Standard Drinks/Week Comments Yes 0 (1 standard drink = 0.6 oz pur e alcohol) Rare Sex Assigned at Date Recorded Male 07/03/2023 9:[address] Job Start Date Occupation Industry Not on file Not on file Not on file COVID-19 Exposure Response Date Recorded In the last month, have you been in contact with someone who was confirmed or suspected to have Coronavirus / COVID-19? No / Unsure 12/02/2020 9:24 AM EDT documented as of this encounter Miscellaneous Notes * Telephone Encounter - Odalys Azar - 12/14/2020 3:30 PM EDT Referral to Endocrinology: FYI to referring. Calls made and letter sent for patient to call and schedule appt. Unable to book at this time. documented in this encounter Plan of Treatment Not on file documented as of this encounter Visit Diagnoses Not on filedocumented in this encounter Care Teams Training Systems Officer Relationship Specialty Start Date End Date Mirlande Dean MD [address] [place] [id number] PCP - General Internal Medicine 11/02/17 documented as of this encounter
--- OUTSIDE RECORDS SUMMARY | 2024-11-05 12:53 | XMS_ITS | Encounter Summary ---
Author Organization [facility] Address [address] [place] [address] Care Team Providers Care Vp Research Name Role Phone Mirlande Dean MD Primary Care Provider [phone] Reason for Referral * Non MEHREEN (Routine) - Authorized/Booked Specialty Diagnoses / Procedures Referred By Carley renae Referred To Contact Internal Medicine / Adult Med Procedures REFERRAL TO PHARMACY CLINIC Bibiana Hoover FNP [address] [place] [phone] [facility] [address] [address] Referral ID Status Reason Start Date Expiration Date V isits Requested Visits Authorized [id number] Authorized/ Booked 11/26/2020 11/26/2021 1 1 Reason for Visit * Reason Onset Date Comments REFERRAL 11/25/2020 referral to [facility] clinic for diabetes education Encounter Details Date Type Department Care Team Description 11/25/2020 Telephone Respiratory and Diabetes Medicaid/ACO Pharmacist [address] [place] [id number] Bibiana Hoover FNP [address] [place] [address] REFERRAL (referral to pharmacy clinic for diabetes education) Social History Tobacco Use Types Packs/Day Years [...] have Coronavirus / COVID-19? No / Unsure 11/22/2020 10:02 AM EDT documented as of this encounter Miscellaneous Notes * Telephone Encounter - Joan Leon Pharm.D - 11/26/2020 12:17 PM EDT Krissy Aldana * Telephone Encounter - AIME Pro, REMA - 11/26/2020 11:50 AM EDT Yes-always Patients can always benefit from more education. It is always the missing piece. Reach out anytime thank you YVETTE Pro * Telephone Encounter - Joan Leon Pharm.D - 11/25/2020 9:09 AM EDT Cyndie Aldana, Do you think this patient would benefit from more diabetes education? If so, I've pended a referral. Thank you for your time, Joan Leon PharmD., BCACP Clinical Pharmacist [facility] Office: Wednesdays [phone], Fridays [phone], (other days) documented in this encounter Plan of Treatment Not on file documented as of this encounter Visit Diagnoses Not on filedocumented in this encounter Care Teams Vp Research Relationship Specialty Start Date End Date Mirlande Dean MD [address] [place] [phone] PCP - General Internal Medicine 11/02/17 documented as of this encounter
--- OUTSIDE RECORDS SUMMARY | 2024-11-05 12:53 | XMS_ITS | Encounter Summary ---
Author Organization [facility] Address [address] [place] [address] Care Team Providers Care Manufacturing Operator Name Role Phone Mirlande Dean MD Primary Care Provider [phone] Encounter Details Date Type Department Care Team Description 10/04/2022 Card Feeder Report Medical Records [address] [place] [id number] Willie Diaz Social History Tobacco Use Types Packs/Day Years [...] Recorded In the last 10 days, have josephine u been in contact with someone who was confirmed or suspected to have Coronavirus/COVID-19? No / Unsure 10/02/2022 10:36 AM EST documented as of this encounter Plan of Treatment Not on file documented as of this encounter Visit Diagnoses Not on filedocumented in this encounter Care Teams Manufacturing Operator Relationship Specialty Start Date End Date Mirlande Dean MD [address] [place] [address] PCP - General Internal Medicine 11/02/17 documented as of this encounter
--- OUTSIDE RECORDS SUMMARY | 2024-11-05 12:53 | XMS_ITS | Encounter Summary ---
[facility] Organization [facility] Address [address] [place] [address] Care Team Providers Care Manager Agriculture Name Role Phone Mirlande Dean MD Primary Care Provider [phone] Encounter Details Date Type Department Care Team Description 06/18/2023 Cultural Anthropology Professor Report Medical Records [address] [place] [address] Nimisha Romero NP Social History Tobacco Use Types Packs/Day Years [...] suspected to have Coronavirus/COVID-19? No / Unsure 06/14/2023 11:35 AM EDT documented as of this encounter Plan of Treatment Not on file documented as of this encounter Visit Diagnoses Not on filedocumented in this encounter Care Teams Manager Agriculture Relationship Specialty Start Date End Date Mirlande Dean MD [address] [place] [address] PCP - General Internal Medicine 11/02/17 documented as of this encounter
--- OUTSIDE RECORDS SUMMARY | 2024-11-05 12:53 | XMS_ITS | Encounter Summary ---
Author Organization [facility] Address [address] [place] [address] Care Team Providers Care Practice Support Specialist Name Role Phone Mirlande Dean MD Primary Care Provider [phone] Encounter Details Date Type Department Care Team Description 05/24/2019 Manufacturing Operator Report Medical Records [address] [place] [address] Jeri Galan MD Social History Tobacco Use Types Packs/Day Years Used Date Smoking Tobacco: Never Smokeless Tobacco: Never Alcohol Use Standard Drinks/Week Comments Yes 0 (1 standard drink = 0.6 oz pur e alcohol) Rare Sex Assigned at Date Recorded Male 07/03/2023 9:[address] Job Start Date Occupation Industry Not on file Not on file Not on file documented as of this encounter Plan of Treatment Not on file documented as of this encounter Visit Diagnoses Not on filedocumented in this encounter Care Teams Practice Support Specialist Relationship Specialty Start Date End Date Mirlande Dean MD [address] [place] [id number] PCP - General Internal Medicine 11/02/17 documented as of this encounter
--- OUTSIDE RECORDS SUMMARY | 2024-11-05 12:53 | XMS_ITS | Clinical Summary ---
Author Organization [facility] Address [address] [place] [address] Care Team Providers Care Road Maker Name Role Phone Unavailable Primary Care Provider Unavailabl e Allergies Active Allergy Reactions Criticality Noted Date Comments Aspirin Palpitations Low 03/23/2014 Seasonal 03/28/2017 Medications Medication Sig Dispensed Refills Start Date End Date Status zolpidem (AMBIEN) 10 MG tablet Take 10 mg by mouth every night at bedtime as needed for sleep. 0 Active Multiple Vitamins-Minerals (CENTRUM PO) Take 1 tablet by mouth daily. 0 Active ARIPiprazole (ABILIFY) 10 MG tablet Take 10 mg by mouth daily. 0 Active gabapentin (NEURONTIN) 600 MG tablet Take 1 tablet by mouth 4 (four) times a day. 4 04/12/2015 Active PROAIR HFA 108 (90 BASE) MCG/ACT inhaler 1 puff every 4 (four) hours as needed. 1 10/28/2015 Active FLOVENT HFA 110 MCG/ACT inhaler 1 puff 2 (two) times a day. 2 10/28/2015 Active fluticasone (FLONASE) 50 MCG/ACT nasal spray 2 10/28/2015 Active Albuterol Sulfate 108 (90 BASE) MCG/ACT AEPB Inhale 2 puffs into the lungs. 0 Active venlafaxine (EFFEXOR-XR) 150 MG 24 hr capsule 0 07/30/2017 Active FLUCELVAX QUADRIVALENT 0.5 ML ADRIA ADM 0.5ML IM UTD 0 09/07/2017 Active meclizine (ANTIVERT) 25 MG tablet Take 25 mg by mouth. 0 11/03/2017 Active traMADol (ULTRAM) 50 MG tablet TAKE ONE TABLET BY MOUTH EVERY 6 HOURS NEEDED FOR PAIN 112 tablet 0 05/10/2018 Active traMADol (ULTRAM) 50 MG tablet TAKE ONE TABLET BY MOUTH EVERY 6 HOURS NEEDED FOR PAIN 40 tablet 0 06/14/2018 Active Active Problems Problem Noted Date Diagnosed Date Postlaminectomy syndrome 04/16/2017 Depression 04/16/2017 BMI 35.0-35.9,adult 04/16/2017 Leg pain, bilateral 12/07/2015 Chronic bilateral low back pain with bilateral s ciatica 07/13/2015 Peripheral neuropathy 06/22/2015 Vitamin D deficiency 06/22/2015 Family History Medical History Relation Name Comments Diabetes Maternal Uncle Thyroid disease Mother Relation Name Status Comments Father Alive Maternal Uncle Mother Alive Social History Tobacco Use Types Packs/Day Years Used Date Smoking Tobacco: Never Smokeless Tobacco: Never Alcohol Use Standard Drinks/Week Comments Yes 0 (1 standard drink = 0.6 oz pur e alcohol) rarely Sex and Gender Information Value Date Recorded Sex Assigned at Not on file Gender Identity Not on file Sexual Orientation Not on file Last Filed Vital Signs Vital Sign Reading Time Taken Comments Blood Pressure 138/64 11/09/2015 2:15 PM EDT Pulse 85 06/22/2015 2:37 PM EST Temperature 36.8 ??C (98.3 ??F) 05/24/2015 9:12 AM ED T Respiratory Rate 16 05/24/2015 9:12 AM EDT Oxygen Saturation 98% 05/24/2015 9:12 AM EDT room air Inhaled Oxygen Concentration - - Weight 103.4 kg (228 lb) 02/18/2018 2:12 PM EDT Height 172.7 cm (5' 8 ) 02/18/2018 2:12 PM EDT Body Mass Index 34.67 02/18/2018 2:12 PM EDT Plan of Treatment Health Maintenance Due Date Last Done Comments Hepatitis B Vaccines (1 of 3 - 3-dose series) 1978 Hepatitis C Screening 1978 COVID-19 Vaccine (#1) 1978 Depression Screening 1990 Preventative Health Evaluation 02/17/1996 Colon Cancer Screening (Colonoscopy) 2023 DTap / Tdap / Td (2 - Td or Tdap) 07/23/2023 07/23/2013 Influenza Vaccine (#1) 2024 8, 07/23/2013 Pneumococcal Vaccine Aged Out No long er eligible based on patient's age to complete this topic RSV Ped < 20 months Aged Out No longe r eligible based on patient's age to complete this topic
--- OUTSIDE RECORDS SUMMARY | 2024-11-05 12:53 | XMS_ITS | Encounter Summary ---
Author Organization [facility] Address [address] [place] [address] Care Team Providers Care Equity Structurer Name Role Phone Mirlande Dean MD Primary Care Provider [phone] Reason for Visit * Reason Onset Date Comments DME Request 05/24/2023 Encounter Details Date Type Department Care Team Description 05/24/2023 Telephone Pulmonology - [place] [address] [facility] [address] [place] [phone] Melissa Llamas MD [address] [place] [address] DME Request Social History Tobacco Use Types Packs/Day Years [...] on file documented as of this encounter Miscellaneous Notes * Telephone Encounter - Margarita Loco - 05/24/2023 1:33 PM EDT Received dme request from [facility] RE: NOTE: SEND UPDATED CPAP SUPPLY RX FOR PT. MASK HEADGEAR, HEATED TUBING, FILTERS AND WATER CHAMBER NOV 05/30/23 ELSY 03/24/23 documented in this encounter Plan of Treatment Not on file documented as of this encounter Visit Diagnoses Not on filedocumented in this encounter Care Teams Equity Structurer Relationship Specialty Start Date End Date Mirlande Dean MD [address] [place] [address] PCP - General Internal Medicine 11/02/17 documented as of this encounter
--- OUTSIDE RECORDS SUMMARY | 2024-11-05 12:53 | XMS_ITS | Encounter Summary ---
Author Organization [facility] Address [address] [place] [address] Care Team Providers Care Sap Portal Developer Name Role Phone Mirlande Dean MD Primary Care Provider [phone] Encounter Details Date Type Department Care Team Description 10/27/2022 Ice Skater Report Medical Records [address] [place] [address] Yvette Rosario MD Social History Tobacco Use Types Packs/Day [...] suspected to have Coronavirus/COVID-19? No / Unsure 10/30/2022 3:29 PM EDT documented as of this encounter Plan of Treatment Not on file documented as of this encounter Visit Diagnoses Not on filedocumented in this encounter Care Teams Sap Portal Developer Relationship Specialty Start Date End Date Mirlande Dean MD [address] [place] [address] PCP - General Internal Medicine 11/02/17 documented as of this encounter
--- OUTSIDE RECORDS SUMMARY | 2024-11-05 12:53 | XMS_ITS | Encounter Summary ---
Author Organization [facility] Address [address] [place] [address] Care Team Providers Care Development Engineer Name Role Phone Mirlande Dean MD Primary Care Provider [phone] Encounter Details Date Type Department Care Team Description 04/10/2023 Waiter/Waitress Cabin Class Report Medical Records [address] [place] [address] Yvette Rosario MD Social History Tobacco Use [...] suspected to have Coronavirus/COVID-19? No / Unsure 03/27/2023 3:04 PM EDT documented as of this encounter Plan of Treatment Not on file documented as of this encounter Visit Diagnoses Not on filedocumented in this encounter Care Teams Development Engineer Relationship Specialty Start Date End Date Mirlande Dean MD [address] [place] [address] PCP - General Internal Medicine 11/02/17 documented as of this encounter
--- OUTSIDE RECORDS SUMMARY | 2024-11-05 12:53 | XMS_ITS | Clinical Summary ---
Author Organization [facility] [address] [place] [address] Address [address] [place] [address] Phone Care Team Providers Care Food Service Attendant Name Role Phone Mirlande Dean MD Primary Care Provider [phone] Allergies Active Allergy Reactions Criticality Noted Date Comments Other 03/28/2017 Seasonal Allergies Medications meclizine (ANTIVERT) 12.5 mg tablet Take 1 Tablet by mouth daily as needed (dizziness). 01/22/2024 Active dulaglutide (Trulicity) 1.5 mg/0.5 mL pen injector injection Inject 1.5 mg into the skin every 7 days. 01/17/2024 Active amphetamine-dex troamphetamine (ADDERALL) 15 mg tablet Take 1 tablet (15 mg total) by mouth 1 (one) time each day. Active fluticasone propionate (FLONASE) 50 mcg/actuation nasal spray 2 Sprays by Nasal route daily. 12/18/2023 Active pen needle, diabetic 32 gauge x /32 needle USE ONE DAILY WITH VICTOZA. 07/04/2023 Active adalimumab (Humira,CF, Pen) 40 mg/0.4 mL pen every 14 days. 12/28/2022 Active methotrexate 2.5 mg tablet TAKE 6 TABLETS BY MOUTH EVERY WEEK 12/26/2022 Active traZODone (DESYREL) 50 mg tablet Take 2 tablets (100 mg total) by mouth 1 (one) time each day in the evening. 01/09/2023 Active blood sugar diagnostic (FreeStyle Lite Strips) test strip Use to test blood sugar once daily 01/08/2023 Active folic acid (FOLVITE) 1 mg tablet Take 1 tablet (1,000 mcg total) by mouth 1 (one) time each day. 08/25/2022 Active blood-glucose meter (BLOOD GLUCOSE MONITORING MISC) Use to test blood sugars once daily 06/14/2022 Active FREESTYLE LANCETS MISC Use to test blood sugars once daily 06/13/2022 Active fenofibrate (TRICOR) 145 mg tablet Take 145 mg by mouth daily. 03/13/2022 Active ARIPiprazole (ABILIFY) 10 mg tablet Take 2 tablets (20 mg total) by mouth at bedtime. Active hydrOXYzine pamoate (VISTARIL) 25 mg capsule Take 1 capsule (25 mg total) by mouth 3 (three) times a day if needed for anxiety. 12/25/2023 Active insulin glargine (Lantus Solostar U-100 Insulin) 100 unit/mL (3 mL) injection pen Inject 20 Units into the skin at bedtime. 15 mL 5 07/22/2024 Active atorvastatin (LIPITOR) 40 mg tablet Take 1 tablet (40 mg total) by mouth 1 (one) time each day. 30 each 11 07/29/2024 Active Active Problems Problem Noted Date Diagnosed Date Psoriatic arthritis 01/01/2024 Overview (06/05/2024): On multiple agents followed by rheumatology. Type 2 diabetes mellitus 05/18/2020 Hypertriglyceridemia 05/08/2019 Obstructive sleep apnea 06/27/2017 Overview (06/05/2024): [facility] Home Polysomnogram: Date 06/25/2017; AHI 84, Unclassified apneas 0; Obstructive apneas 460; Central apneas 1; Mixed apneas 2; hypopneas 153; average oxygen saturation 91% (lowest 65% with saturations <88% for 5% or more of study) Hyperlipidemia 03/28/2017 Fatty liver disease, nonalcoholic 01/01/2017 Overview (06/05/2024): Dr. Guzman Obesity (BMI 30.0-34.9) 01/01/2017 Anxiety 07/23/2013 Bipolar disorder 07/23/2013 Overview (06/05/2024): Psychiatrist - Dr. Son Low back pain 07/23/2013 Overview (06/05/2024): Dr. Triana - [facility] in [place]; fusion of L4-L5 Encounters Date Type Department Care Team Description 11/04/2024 10:00 AM EDT Consult Adult Medicine [address] [address] Mirlande Dean MD Preop cardiovascular exam (Primary Dx); Fatty liver disease, nonalcoholic; Bipolar affective disorder, remission status unspecified ([facility]); Obesity (BMI 30.0-34.9); Type 2 diabetes mellitus without complication, without long-term current use of insulin ([facility]); SAGE (obstructive sleep apnea); Hyperlipidemia, unspecified hyperlipidemia type; Psoriatic arthritis ([facility]) 11/03/2024 Telephone Adult Medicine [address] [phone] Mirlande Dean MD Pre-op Visit 10/23/2024 Telephone Endocrinology [address] [phone] Mackenzie Hoffman PA Labs Only from Last 3 Months Immunizations Name Administration Dates Next Due Influenza Quadravalent, MDCK , 0.5ml, preservative free (Flucelvax) 6mo and older 07/04/2023,05/09/2022,05/07/2019,2017,09/07/2017 Influenza trivalent, 0.5mL, preservative free (Fluarix; FluLaval; Fluzone) ages 6mo and older (Afluria) 3 years and older 07/23/2013 PPD Test 05/09/2019,05/07/2019 Pfizer SARS-CoV-2 COVID-19, mRNA, LNP-S, preservative free 06/22/2021 Pneumococcal conjugate 20 va lent (Prevnar 20, PCV 20) 2mo and older 07/04/2023 Tdap Tetanus diptheria acell ular pertussis (Boostrix; Adacel) 7yo and older 07/23/2013 Surgical History Surgery Date Site/Laterality Comments BACK SURGERY 07/31 PROCEDURE: HISTORICAL BACK SURGERY; COMMENT: L4-L5 fusion Medical History Medical History Date Comments Low back pain 07/23/2013 DX:Low back pain ; COMMENT: Dr. Triana - in [place]; fusion of L4-L5 Anxiety 07/23/2013 DX:Anxiety Fatty liver disease, nonalcoholic 01/01/2017 DX:Fatty liver disease, nonalcoholic Bipolar disorder (CMS/HCC) 07/23/2013 DX:Bi polar disorder (HCC); COMMENT: Psychiatrist - Dr. Son Hyperlipidemia 03/28/2017 DX:Hyperlipidemi a Obesity (BMI 30.0-34.9) 01/01/2017 DX:Obesi ty (BMI 30.0-34.9) Obstructive sleep apnea 06/27/2017 DX:Obstr uctive sleep apnea; COMMENT: [facility] Home Polysomnogram: Date 06/25/2017; AHI 84, Unclassified apneas 0; Obstructive apneas 460; Central apneas 1; Mixed apneas 2; hypopneas 153; average oxygen saturation 91% (lowest 65% with saturations <88% for 5% or more of study) Hypertriglyceridemia 05/08/2019 DX:Hypertri glyceridemia Family History Medical History Relation Name Comments Other: Diverticulitis Mother Other: Fibromyalgia Mother Colon cancer Uncle Paternal Relation Name Status Comments Father Alive Healthy Mother Alive Thyroid disorde r, joint pain, anxiety, fibromyalgia Sister Alive Healthy Uncle Social History Tobacco Use Types Packs/Day Years Used Date Smoking Tobacco: Some Days Cigarettes Smokeless Tobacco: Never Tobacco Cessation:Ready to Q uit: Not Asked; Counseling Given: Not Answered Alcohol Use Standard Drinks/Week Comments Yes 0 (1 standard drink = 0.6 oz pur e alcohol) Housing Instability Answer Date Recorde d Are you worried that in the next 2 months you may not have stable housing? No 07/23/2024 Food Access & Nutrition Answer Date Rec orded Do you have access to a vari ety of food including fruits and vegetables? No 07/23/2024 Access to Healthcare Answer Date Record ed Within the last 3 months, ho w many times did you visit the emergency department for your medical care? 0 07/23/2024 Health Literacy Answer Date Recorded How often do you need to hav e someone help you when you read instructions, pamphlets, or other written material from your doctor or pharmacy? Sometimes 07/23/2024 Caregiver: How often do you need to have someone help you when you read instructions, pamphlets, or other written material from your doctor or pharmacy? Not on file 07/23/2024 Financial Risk Answer Date Recorded How hard is it for you to pa y for the very basics like food, housing, medical care, and air conditioning / heating? Patient declined 07/23/2024 Transportation Answer Date Recorded Has the lack of transportati on kept you from meetings, work, or from getting things needed for daily living? No Has the lack of transportati on kept you from medical appointments or from getting medications? No 07/23/2024 Social Isolation Answer Date Recorded How often do you feel lonely or isolated from th ose around you? Rarely 07/23/2024 Food Risk Answer Date Recorded Within the past 12 months we worried whether our food would run out before we got money to buy more. Never true 07/23/2024 Within the past 12 months th e food we bought just didn't last and we didn't have money to get more. Never true 07/23/2024 Dependent Care Answer Date Recorded Do you need help finding or paying for care for your loved ones. For example, child care specialist or elderly care for an older adult? No 07/23/2024 Education Answer Date Recorded Do you think completing more education or training, like finishing a GED, going to college, or learning a trade, would be helpful for you? No 07/23/2024 Employment and Income Answer Date Recor ded During the last four weeks, have you been actively looking for work? No 07/23/2024 Living Situation Answer Date Recorded What is your living situation? 1 09/23/2023 Sex and Gender Information Value Date Recorded Sex Assigned at Not on file Legal Sex Male 9:02 AM EST Gender Identity Not on file Sexual Orientation Not on file Obstetrics History Last Filed Vital Signs Vital Sign Reading Time Taken Comments Blood Pressure 100/54 11/04/2024 10:16 AM EDT Pulse 76 11/04/2024 10:16 AM EDT Temperature 36 ??C (96.8 ??F) 11/04/2024 10:16 AM EDT Respiratory Rate 16 11/04/2024 10:16 AM EDT Oxygen Saturation 98% 11/04/2024 10:16 AM EDT Inhaled Oxygen Concentration - - Weight 90.3 kg (199 lb) 11/04/2024 10:16 AM EDT Height 167.6 cm (5' 6 ) 11/04/2024 10:16 AM EDT Body Mass Index 32.12 11/04/2024 10:16 AM EDT Plan of Treatment Upcoming Encounters Date Type Department Care Team (Late st Contact Info) Description 01/20/2025 3:30 PM EDT Office Visit Endocrinology - [place] [address] [place] [address] Mackenzie Hoffman PA [address] [place] [address] 06/15/2025 3:30 PM EDT Office Visit Pulmonolgy - [place] 175 [facility] [address] [place] [address] Melissa Llamas MD 175 [facility] [address] [place] [address] Health Maintenance Due Date Last Done Comments Diabetes: Annual Foot Exam 02/17/1988 Diabetes: Annual Retina Eye Exam 02/17/1988 Hepatitis A Vaccines (1 of 2 - Risk 2-dose series) 1997 Hepatitis B Vaccines (1 of 3 - 19+ 3-dose series) 1997 COVID-19 Vaccine (3 - Pfizer risk series) 09/02/2021 08/05/2021, 06/22/2021 Colorectal Cancer Screening: Colonoscopy 07/28/2022 Medicare Annual Wellness Visit 07/28/2022 DTaP,Tdap,and Td Vaccines (2 - Td or Tdap) 07/23/2023 07/23/2013 Diabetes: Blood Sugar Control Test (HGBA1C) 04/26/2025 10/24/2024, 07/25/2024, 12/28/2023, Additional history exists Social Influencers of Health Screening 07/23/2025 07/23/2024 Diabetes: Annual Urine Albumin-Creatinine Ratio (uACR) 07/25/2025 07/25/2024, 10/20/2022 Depression Screening 10/29/2025 10/29/2024 Diabetes: Annual GFR (Glomerular Filtration Rate) 11/04/2025 11/04/2024, 07/29/2024, 07/25/2024, Additional history exists Cholesterol Screening (Lipid Panel) 07/25/2029 07/25/2024, 10/20/2022 HIV Screening Completed 06/14/2023 Hepatitis C Screening Completed 06/14/2023 Pneumococcal Vaccine: Pediatrics (0 to 5 Years) and At-Risk Patients (6 to 64 Years) Completed 07/04/2023 Influenza Vaccine Completed 06/02/2024, , 05/09/2022, Additional history exists HIB Vaccines Aged Out No longer eligi ble based on patient's age to complete this topic HPV Vaccines Aged Out No longer eligi ble based on patient's age to complete this topic IPV Vaccines Aged Out No longer eligi ble based on patient's age to complete this topic MMR Vaccines Aged Out No longer eligi ble based on patient's age to complete this topic Meningococcal ACWY Vaccine Aged Out N o longer eligible based on patient's age to complete this topic Meningococcal B Vacine Aged Out No lo nger eligible based on patient's age to complete this topic RSV Immunization Patients Under 20 months Aged Out No longer eligible based on patient's age to complete this topic Varicella Vaccines Aged Out No longer eligible based on patient's age to complete this topic Procedures Procedure Name Priority Date/Time Associated Diagnosis Comments ECG 12-LEAD Routine 11/04/2024 1:16 PM EDT Preop cardiovascular exam COMPREHENSIVE METABOLIC PANEL Routine 11/04/2024 11:28 AM EDT Fatty liver disease, nonalcoholic Preop cardiovascular exam PROTHROMBIN TIME WITH INR Routine 11/04/2024 11:28 AM EDT Fatty liver disease, nonalcoholic Preop cardiovascular exam HEMOGLOBIN A1C Routine 10/24/2024 12:30 PM EST Type 2 diabetes mellitus with other specified complication, unspecified whether termite control technician insulin use ([facility]) MICROALBUMIN CREATININE URINE RATIO Routine 07/25/2024 12:11 PM EST Type 2 diabetes mellitus with other specified complication, unspecified whether termite control technician insulin use (CMS/HCC) LIPID PANEL WITH REFLEX TO DIRECT LDL Routine 07/25/2024 12:11 PM EST Type 2 diabetes mellitus with other specified complication, unspecified whether longterm insulin use (CMS/HCC) HEPATITIS C SCREENING Routine 06/14/2023 HIV SCREENING Routine 06/14/2023 from Last 3 Months or Most Recently Relevant to Health Maintenance Results * ECG 12 lead (11/04/2024 1:16 PM EDT) Narrative Mirlande Dean MD - 11/04/2024 1:16 PM EDT EKG today in my office showed a normal sinus rhythm, some baseline issues and a nonspecific ST-T changes. us Mirlande Dean MD ECG ORDERABLES Final Result * Prothrombin time with INR (11/04/2024 11:28 AM EDT) Protime 10.9 10.6 - 13.9 sec LAB COAGULATION METHOD 11/04/2024 2:31 PM EDT [facility] INR 0.9 LAB COAGULATION METHOD 11/04/2024 2:31 PM EDT [facility] Blood Venous blood specimen / Unknown Venipuncture / Unknown 11/04/2024 11:28 AM EDT 11/04/2024 11:28 AM EDT us Mirlande Dean MD LAB BLOOD ORDERABLES Final Resul t [facility] [address] [place] [address], [place] [phone] * (ABNORMAL) Comprehensive metabolic panel (11/04/2024 11:28 AM EDT) Sodium 140 133 - 145 mmol/L LAB CHEMISTRY METHOD 11/04/2024 3:34 PM [facility] Potassium 3.9 3.5 - 5.5 mmol/L LAB CHEMISTRY METHOD 11/04/2024 3:34 PM [facility] Chloride 105 96 - 110 mmol/L LAB CHEMISTRY METHOD 11/04/2024 3:34 PM [facility] CO2 27 21 - 32 mmol/L LAB CHEMISTRY METHOD 11/04/2024 3:34 PM [facility] Anion Gap 8 3 - 11 LAB CHEMISTRY METHOD 11/04/2024 3:34 PM [facility] Glucose 131(H) 70 - 100 mg/dL LAB CHEMISTRY METHOD 11/04/2024 3:34 PM [facility] BUN 17 5 - 25 mg/dL LAB CHEMISTRY METHOD 11/04/2024 3:34 PM [facility] Creatinine 0.96 0.70 - 1.30 mg/dL LAB CHEMISTRY METHOD 11/04/2024 3:34 PM [facility] eGFR 99 >=60 mL/min/1. 73m2 LAB CHEMISTRY METHOD 11/04/2024 3:34 PM [facility] Comment:Calculation based on the??Chronic Kidney Disease Epidemiology Collaboration (CKD-EPI) equation refit??without adjustment for race. BUN/Creatinine Ratio 17.7 LAB CHEMISTRY METHOD 11/04/2024 3:34 PM [facility] Calcium 9.3 8.5 - 10.5 mg/dL LAB CHEMISTRY METHOD 11/04/2024 3:34 PM [facility] AST (SGOT) 16 10 - 42 unit/L LAB CHEMISTRY METHOD 11/04/2024 3:34 PM [facility] ALT (SGPT) 27 10 - 60 unit/L LAB CHEMISTRY METHOD 11/04/2024 3:34 PM [facility] Alkaline Phosphatase 96 42 - 121 unit/L LAB CHEMISTRY METHOD 11/04/2024 3:34 PM EDT [facility] Total Protein 7.8 6.0 - 8.0 g/dL LAB CHEMISTRY METHOD 11/04/2024 3:34 PM EDT [facility] Albumin 3.8 3.2 - 5.0 g/dL LAB CHEMISTRY METHOD 11/04/2024 3:34 PM EDT [facility] Total Bilirubin 0.3 0.0 - 1.4 mg/dL LAB CHEMISTRY METHOD 11/04/2024 3:34 PM EDT [facility] Blood Venous blood specimen / Unknown Venipuncture / Unknown 11/04/2024 11:28 AM EDT 11/04/2024 11:28 AM EDT us Mirlande Dean MD LAB BLOOD ORDERABLES Final Resul t [facility] [address] [place] [address], [place] [phone] * Hemoglobin A1c (10/24/2024 12:30 PM EST) Hemoglobin A1C 5.8 <6.5 % LAB CHEMISTRY METHOD 10/24/2024 10:06 PM EST [facility] Mean Bld Glu Estim. 120 mg/dL LAB CHEMISTRY METHOD 10/24/2024 10:06 PM EST [facility] Blood Venous blood specimen / Unknown Venipuncture / Unknown 10/24/2024 12:30 PM EST 10/24/2024 12:30 PM EST us Mackenzie ROBERTSON LAB BLOOD ORDERABLES Final Result Performing Organization Address [facility]/ZIP Co de Phone Number [facility] [address] [place] [address], [place] [phone] * (ABNORMAL) Lipid panel with reflex to direct LDL (07/25/2024 12:11 PM EST) Cholesterol 215(H) 0 - 200 mg/dL LAB CHEMISTRY METHOD 07/25/2024 3:12 PM [facility] Triglycerides 148 0 - 150 mg/dL LAB CHEMISTRY METHOD 07/25/2024 3:12 PM [facility] HDL 54 >=40 mg/dL LAB CHEMISTRY METHOD 07/25/2024 3:12 PM [facility] LDL Calculated 131(H) 0 - 100 mg/dL LAB CHEMISTRY METHOD 07/25/2024 3:12 PM [facility] VLDL Cholesterol [place] 29.6 mg/dL LAB CHEMISTRY METHOD 07/25/2024 3:12 PM [facility] Non HDL Chol. (LDL+VLDL) 161(H) <145 mg/dL LAB CHEMISTRY METHOD 07/25/2024 3:12 PM [facility] Chol/HDL Ratio 4.0 0.0 - 4.4 LAB CHEMISTRY METHOD 07/25/2024 3:12 PM [facility] Blood Venous blood specimen / Unknown Venipuncture / Unknown 07/25/2024 12:11 PM EST 07/25/2024 12:11 PM EST us Mackenzie ROBERTSON LAB BLOOD ORDERABLES Final Result [facility] [address] [place] [address], * Microalbumin creatinine urine ratio (07/25/2024 12:11 PM EST) Creatinine, Urine 210.0 mg/dL LAB CHEMISTRY METHOD 07/25/2024 3:38 PM [facility] Microalb, Ur 13.7 0.0 - 29.0 mg/L LAB CHEMISTRY METHOD 07/25/2024 3:38 PM [facility] Microalb/Creat Ratio 7 <30 mg/g creat LAB CHEMISTRY METHOD 07/25/2024 3:38 PM EST [facility] Urine Urine specimen from urethra / Unknown Non-blood Collection / Unknown 07/25/2024 12:11 PM EST 07/25/2024 12:11 PM EST Mackenzie ROBERTSON LAB URINE ORDERABLES Final Result [facility] [address] [place] [address], [place] [phone] * HIV Screening (06/14/2023) HIV Screening abstracted Historical Provider HEALTH MAINTENANCE Final Result * Hepatitis C Screening (06/14/2023) Hepatitis C Screening abstracted Historical Provider HEALTH MAINTENANCE Final Result from Last 3 Months or Most Recently Relevant to Health Maintenance Insurance MEDICA[place] - [place] MEDICARE Care Teams Food Service Attendant Relationship Specialty Start Date End Date Mirlande Dean MD [address] [place] [address] PCP - General Internal Medicine 11/02/17
--- OUTSIDE RECORDS SUMMARY | 2024-11-05 12:53 | XMS_ITS | Encounter Summary ---
Author Organization [facility] Address [address] [place] [address] Care Team Providers Care Staffing Director Name Role Phone Mirlande Dean MD Primary Care Provider [phone] Encounter Details Date Type Department Care Team Description 06/19/2023 Meat Slicer Report Medical Records [address] [place] [id number] Willie Diaz Social History Tobacco Use Types [...] on filedocumented in this encounter Care Teams Staffing Director Relationship Specialty Start Date End Date Mirlande Dean MD [address] [place] [address] PCP - General Internal Medicine 11/02/17 documented as of this encounter
--- OUTSIDE RECORDS SUMMARY | 2024-11-05 12:53 | XMS_ITS | Clinical Summary ---
Author Organization [facility] Address [address] [place] [address] Care Team Providers Care Stamp Maker Name Role Phone Unavailable Primary Care Provider Unavailabl e Social History Tobacco Use Types Packs/Day Years Used Date Smoking Tobacco: Never Assessed Sex and Gender Information Value Date Recorded Sex Assigned at Not on file Gender Identity Not on file Sexual Orientation Not on file Last Filed Vital Signs Vital Sign Reading Time Taken Comments Blood Pressure 108/71 06/25/2015 2:42 PM EST Pulse 72 06/25/2015 2:42 PM EST Temperature 36.1 ??C (96.9 ??F) 06/25/2015 2:42 PM ES T Respiratory Rate 20 06/25/2015 2:42 PM EST Oxygen Saturation - - Inhaled Oxygen Concentration - - Weight 83.9 kg (185 lb 0.2 oz) 06/25/2015 2:42 P M EST Height 167.6 cm (5' 6 ) 06/25/2015 2:42 PM EST Body Mass Index 29.86 06/25/2015 2:42 PM EST Plan of Treatment Health Maintenance Due Date Last Done Comments Hepatitis C Virus Screening 1978 HIV Screening 1991 DTaP/Tdap/Td Vaccines (1 - Tdap) 1997 Hepatitis B Vaccines (1 of 3 - 19+ 3-dose series) 1997 COVID-19 Vaccine (2023-2 5 season) 2024 Pneumococcal Vaccine: Pediat wilbur (0-5 Years) and At-Risk Patients (6 to 49 Years) Aged Out No longer eligible b ased on patient's age to complete this topic
--- OUTSIDE RECORDS SUMMARY | 2024-11-05 12:54 | XMS_ITS | Encounter Summary ---
Author Organization [facility] Address [address] [place] [address] Care Team Providers Care Sales Research Analyst Name Role Phone Mirlande Dean MD Primary Care Provider [phone] Reason for Visit * Reason Onset Date Comments Pre-op Visit 11/03/2024 Encounter Details Date Type Department Care Team (Late st Contact Info) Description 11/03/[address] [facility] [address] [place] [address] Mirlande Dean MD [address] [place] [address] Pre-op Visit Social History Tobacco Use Types Packs/Day Years Used Date Smoking Tobacco: Some Days Cigarettes Smokeless Tobacco: Never Alcohol Use Standard Drinks/Week [...] care for your loved ones. For example, special needs child caregiver or elderly care for an older adult? [...] on file Sexual Orientation Not on file documented as of this encounter Progress Notes * Sariah Lopez - 11/03/2024 1:50 PM EDT Please fax over office notes, any recent labs, recent A1C appointment Dr Dean 11/04. If no recent A1C please order, surgery is on 11/05. Please fax over [phone] Attn: Lise * Aviva Fermin - 11/03/2024 8:31 AM EDT Patient requires Preoperative Assessment: Date of surgery: 11/05/24 What surgery is patient having (gall bladder, cataract, appendix, etc...)?: lipo Surgeon's name: Ana Office phone number of surgeon: [phone] Fax # for surgeons office: (Required) Where is surgery being performed? [facility] Diagnosis/problem for surgery: lipo Is an EKG required for the pre-op workup? yes PCP: Mirlande Dean MD Did you verify that the insurance below is correct? yes Patients insurance: Payor: MEDICARE / Plan: MEDICARE PART A & B / Product Type: Medicare / documented in this encounter Plan of Treatment Upcoming Encounters Date Type Department Care Team (Late st Contact Info) Description 01/20/2025 3:30 PM EDT Office Visit Endocrinology - [place] [address] [place] [address] Mackenzie Hoffman PA [address] [place] [address] 06/15/2025 3:30 PM EDT Office Visit Pulmonolgy - [place] [address] [address] Melissa Llamas MD [address] [address] documented as of this encounter Visit Diagnoses Not on filedocumented in this encounter Additional Health Concerns Assessment Noted Time PHQ-9 Depression Total Score: 14 025 12:26 PM EDT documented as of this encounter Care Teams Sales Research Analyst Relationship Specialty Start Date End Date Mirlande Dean MD [address] [place] [address] PCP - General Internal Medicine 11/02/17 documented as of this encounter
--- OUTSIDE RECORDS SUMMARY | 2024-11-05 12:54 | XMS_ITS | Encounter Summary ---
Author Organization [facility] Address [address] [place] [id number] Care Team Providers Care Electro Mechanical Designer Name Role Phone Mirlande Dean MD Primary Care Provider [phone] Reason for Visit * Reason Onset Date Comments TEST RESULTS 05/11/2022 Encounter Details Date Type Department Care Team Description 05/11/2022 Telephone Adult Medicine [facility] [address] [place] [address] [phone] Mirlande Dean MD [address] [place] [address] [phone] TEST RESULTS Social History Tobacco Use Types Packs/Day Years [...] suspected to have Coronavirus/COVID-19? No / Unsure 05/09/2022 9:39 AM EDT documented as of this encounter Miscellaneous Notes * Telephone Encounter - Alicia Sanford M.A. - 05/11/2022 2:09 PM EDT Pt returning Dr Joseph's call * Telephone Encounter - Betzy Rahman - 05/11/2022 1:39 PM EDT Inform patient: ANY URGENT OR ABNORMAL RESULTS WIILL RESULT IN A CALL BACK TO THE PATIENT CAMILLA. Type of test: multi xray Date test was performed: 05/09/22 Where was the test performed: rb Who ordered this test?: Dr Joseph Is the doctor here today?: no Can the message wait until the doctor returns?: NO IF PATIENT'S PCP IS NOT IN INSTRUCT PATIENT THAT THEY WILL RECEIVE A CALL BACK WHEN THE PCP IS IN THE OFFICE NEXT. documented in this encounter Plan of Treatment Not on file documented as of this encounter Visit Diagnoses Not on filedocumented in this encounter Care Teams Electro Mechanical Designer Relationship Specialty Start Date End Date Mirlande Dean MD [address] [place] [phone] PCP - General Internal Medicine 11/02/17 documented as of this encounter
--- OUTSIDE RECORDS SUMMARY | 2024-11-05 12:54 | XMS_ITS | Encounter Summary ---
Author Organization [facility] Address [address] [place] [address] Care Team Providers Care Gas Flow Regulator Name Role Phone Unavailable Primary Care Provider Unavailabl e Encounter Details Date Type Department Care Team (Late st Contact Info) Description 05/01/2017 Scanned Document [facility] at [address] [place] [address] Daniel Morgan [address] [phone] Social History Tobacco Use Types Packs/Day Years [...]
--- OUTSIDE RECORDS SUMMARY | 2024-11-05 12:54 | XMS_ITS | Encounter Summary ---
Author Organization [facility] Address [address] [place] [address] Care Team Providers Care Home Teaching Grades 7 And 8 Teacher Name Role Phone Mirlande Dean MD Primary Care Provider [phone] Reason for Visit * Reason Comments Pre-op Exam Pre-op liposuction Ana Encounter Details Date Type Department Care Team ([facility] Contact Info) Description 11/04/2024 10:00 AM EDT Consult Adult Medicine [address] [phone] Mirlande Dean MD [address] [place] [id number] Preop cardiovascular exam (Primary Dx); Fatty liver disease, nonalcoholic; Bipolar affective disorder, remission status unspecified (CMS/HCC); Obesity (BMI 30.0-34.9); Type 2 diabetes mellitus without complication, without long-term current use of insulin ([facility]); SAGE (obstructive sleep apnea); Hyperlipidemia, unspecified hyperlipidemia type; Psoriatic arthritis ([facility]) Social History Tobacco Use Types Packs/Day Years [...] care for your loved ones. For example, children's entertainer or elderly care for an older adult? [...] on file documented as of this encounter Last Filed Vital Signs Vital Sign Reading [...] Mass Index 32.12 11/04/2024 10:16 AM EDT documented in this encounter Progress Notes * Mirlande Dean MD - 11/04/2024 10:00 AM EDT Referring MD: No ref. provider found HPI: Mr. Paul is a 44 y.o. year old male who is scheduled for cosmetic procedure, including liposuction, resection of redundant skin in the lower abdomen on 11/05/24. Has a complex past medical history, he did not follow with me too closely, and I reviewed patient'srecords, previous evaluation, available laboratory studies. He is here today for pre-operative consultation. His functional status is greater than 4 METs as hecan climb at least 1 flight of stairs, and take care of his daily activities without any difficulty. Patient denied any chest pain shortness breath palpitation. Patient denied paroxysmal nocturnal dyspnea or increased lower extremity edema. He has not had problems with anesthesia or bleeding. Patient is compliant with all his medications he reported no specific side effects. 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 He told me his mood is stable and he never missed his medications. Patient denied any alcohol and drug use although he does use marijuana. Patient told me he has a very supportive family and he is very close to his mother. ROS: RESPIRATORY: No cough, wheezing or shortness of breath CARDIOVASCULAR: Negative for chest pain, leg swelling and palpitations GI: Negative for abdominal discomfort, changes in bowel habits, blood in stool or black stools and See HPI ENDOCRINE: Negative for cold or heat intolerance, polyuria, polydipsia and goiter NEURO: No persistent headache, fainting, seizures, strokes, TIAs, weakness, numbness or tingling PAST MEDICAL HISTORY: Patient Active Problem List Diagnosis Date Noted Psoriatic arthritis ([facility]) 01/01/2024 Type 2 diabetes mellitus ([facility]) 05/18/2020 Hypertriglyceridemia 05/08/2019 Obstructive sleep apnea 06/27/2017 Hyperlipidemia 03/28/2017 Fatty liver disease, nonalcoholic 01/01/2017 Obesity (BMI 30.0-34.9) 01/01/2017 Anxiety 07/23/2013 Bipolar disorder ([facility]) 07/23/2013 Low back pain 07/23/2013 SOCIAL HISTORY: Social History Tobacco Use Smoking status: Some Days Current packs/day: 0.25 Types: Cigarettes Smokeless tobacco: Never Substance Use Topics Alcohol use: Yes FAMILY HISTORY: Family Status Relation Name Status Mother Alive Thyroid disorder, joint pain, anxiety, fibromyalgia Uncle (Not Specified) Father Alive Healthy Sister Alive Healthy No partnership data on file Family History Problem Relation Name Age of Onset Other (Other: Diverticulitis) Mother Other (Other: Fibromyalgia) Mother Colon cancer Uncle 59.00 Paternal ACTIVE MEDICATIONS: Outpatient Medications Marked as Taking for the 11/04/24 encounter (Consult) with Mirlande Dean MD Medication Sig Dispense Refill adalimumab (Humira,CF, Pen) 40 mg/0.4 mL pen every 14 days. amphetamine-dextroamphetamine (ADDERALL) 15 mg tablet Take 1 tablet (15 mg total) by mouth 1 (one) time each day. ARIPiprazole (ABILIFY) 10 mg tablet Take 2 tablets (20 mg total) by mouth at bedtime. atorvastatin (LIPITOR) 40 mg tablet Take 1 tablet (40 mg total) by mouth 1 (one) time each day. 30 each 11 blood sugar diagnostic (FreeStyle Lite Strips) test strip Use to test blood sugar once daily blood-glucose meter (BLOOD GLUCOSE MONITORING [facility]) Use to test blood sugars once daily dulaglutide (Trulicity) 1.5 mg/0.5 mL pen injector injection Inject 1.5 mg into the skin every 7 days. fenofibrate (TRICOR) 145 mg tablet Take 145 mg by mouth daily. fluticasone propionate (FLONASE) 50 mcg/actuation nasal spray 2 Sprays by Nasal route daily. folic acid (FOLVITE) 1 mg tablet Take 1 tablet (1,000 mcg total) by mouth 1 (one) time each day. FREESTYLE LANCETS [facility] Use to test blood sugars once daily hydrOXYzine pamoate (VISTARIL) 25 mg capsule Take 1 capsule (25 mg total) by mouth 3 (three) times a day if needed for anxiety. insulin glargine (Lantus Solostar U-100 Insulin) 100 unit/mL (3 mL) injection pen Inject 20 Units into the skin at bedtime. 15 mL 5 meclizine (ANTIVERT) 12.5 mg tablet Take 1 Tablet by mouth daily as needed (dizziness). methotrexate 2.5 mg tablet TAKE 6 TABLETS BY MOUTH EVERY WEEK pen needle, diabetic 32 gauge x /32 needle USE ONE DAILY WITH VICTOZA. traZODone (DESYREL) 50 mg tablet Take 2 tablets (100 mg total) by mouth 1 (one) time each day in the evening. ALLERGIES: Other PHYSICAL EXAM: Blood pressure 100/54, pulse 76, temperature 36 ??C (96.8 ??F), temperature source Temporal, resp. rate 16, height 1.676 m (66 ), weight 90.3 kg (199 lb), SpO2 98%. Body mass index is 32.12 kg/m??. APPEARANCE: Alert and in no acute distress, obese NECK: Neck supple, no adenopathy, thyroid symmetric and of normal size HEART: Normal S1-S2 LUNG: clear to auscultation bilaterally ABDOMEN: Bowel sounds normoactive, no bruits and soft, non-tender, without organomegaly or palpablemasses EXTREMITIES: No edema NEURO: Awake, alert and oriented x 3, reflexes symmetrical, and grossly nonfocal examination SKIN: Skin color, texture, turgor normal. No rashes or lesions., No ecchymosis particular jaundice LABS: Lab Results Component Value Date NA 138 07/29/2024 K 4.1 07/29/2024 CO2 27 07/29/2024 CL 105 07/29/2024 BUN 21 07/29/2024 Lab Results Component Value Date HGBA1C 5.8 10/24/2024 HGBA1C 5.6 07/25/2024 HGBA1C 5.4 12/28/2023 Lab Results Component Value Date MICROALBUR 13.7 07/25/2024 LDLCALC 131 (H) 07/25/2024 CREATININE 1.04 07/29/2024 MICROALBCREA 7 07/25/2024 Lab Results Component Value Date CHOL 215 (H) 07/25/2024 TRIG 148 07/25/2024 HDL 54 07/25/2024 LDLCALC 131 (H) 07/25/2024 VLDL 29.6 07/25/2024 NONHDLC 161 (H) 07/25/2024 CHOLHDL 4.0 07/25/2024 Wt Readings from Last 5 Encounters: 11/04/24 90.3 kg (199 lb) 07/29/24 91.7 kg (202 lb 3.2 oz) 07/22/24 90.2 kg (198 lb 12.8 oz) 06/13/24 91.2 kg (201 lb) 01/17/24 90.1 kg (198 lb 9.6 oz) BP Readings from Last 5 Encounters: 11/04/24 100/54 07/29/24 136/78 07/22/24 118/60 06/13/24 126/70 01/17/24 104/58 Testing: EKG: Today in my office showed a normal sinus rhythm, some baseline issues, and nonspecific ST-T changes. . ASSESSMENT AND PLAN: 1. Preop cardiovascular exam 2. Fatty liver disease, nonalcoholic 3. Bipolar affective disorder, remission status unspecified ([facility]) 4. Obesity (BMI 30.0-34.9) 5. Type 2 diabetes mellitus without complication, without long-term current use of insulin ([facility]) 6. SAGE (obstructive sleep apnea) 7. Hyperlipidemia, unspecified hyperlipidemia type 8. Psoriatic arthritis ([facility]) Cardiac - Mr. Paul, though with multiple risk factors, and is scheduled for a intermediate risk procedure. His functional capacity is estimated to be greater than 4 METs. He is, therefore, estimated to have an acceptablerisk for the proposed procedure. Further cardiac workup is not warranted. His blood pressure has been well-controlled, beta blockade perioperatively is not needed. Previously for patient is nonspecific EKG abnormalities patient had echocardiogram which is very favorable. Pulmonary -today patient respirate status is stable, early ambulation and use of incentive spirometry, when appropriate, are encouraged. Diabetes, well-controlled, patient over the past few years had a significant weight reduction. If patient's A1c still remains good, we may consider decreasing patient's medication. Patient also follows with endocrine. During this hospitalization patient should be maintained on an ADA 2000cal diet without concentrated carbohydrates and patient's blood glucose should be very closely monitored. Patient should hold off his insulin dosage tonight for the surgery tomorrow. I want the patient not to use Trulicity for 1 week time. Patient of sleep apnea, I want the patient to bring the CPAP machine during this hospitalization and continue to use this treatment. Patient has psoriatic arthritis and maintained on different medication, patient has previous history of abnormal liver function test. Although patient appears to be clinically stable, I will check liver function test PT/INR and I will update you if there is significant abnormalities. There is no history of bleeding Bipolar disorder patient reported stability, and he is compliant with all his medications and follows with a specialist. I would recommend continue current medication patient's mood should be closelymonitored. I will continue statin also for its cardioprotective effect. Again I will monitor liver function test. Medications -patient could continue his outpatient medication regimen with exception of adjustment as detailed above. Please do not hesitate to contact me with any questions or concerns. Thank you for the courtesy of this consultation. Mirlande Dean MD on 11/04/2024 at 1:14 PM EDT cc: No ref. provider found documented in this encounter Plan of Treatment Upcoming Encounters Date Type Department Care Team (Late st Contact Info) Description 01/20/2025 3:30 PM EDT Office Visit Endocrinology [address] [phone] Mackenzie Hoffman PA [address] [place] [address] 06/15/2025 3:30 PM EDT Office Visit Pulmonolgy - [place] [address] [phone] Melissa Llamas MD [address] [facility] [address] [place] [address] documented as of this encounter Procedures Procedure Name Priority Date/Time Associated Diagnosis Comments ECG 12-LEAD Routine 11/04/2024 1:16 PM EDT Preop cardiovascular exam documented in this encounter Results * ECG 12 lead (11/04/2024 1:16 [...] LAB COAGULATION METHOD 11/04/2024 2:31 PM EDT [facility] INR 0.9 LAB COAGULATION METHOD 11/04/2024 2:31 PM EDT [facility] Blood Venous blood specimen / Unknown Venipuncture / Unknown 11/04/2024 11:28 AM EDT 11/04/2024 11:28 AM EDT Mirlande Dean MD LAB BLOOD ORDERABLES Final Resul t [facility] [address] [place] [address], * (ABNORMAL) Comprehensive metabolic panel (11/04/2024 11:28 AM EDT) Sodium 140 133 - 145 mmol/L LAB CHEMISTRY METHOD 11/04/2024 3:34 PM EDT [facility] Potassium 3.9 3.5 - 5.5 mmol/L LAB CHEMISTRY METHOD 11/04/2024 3:34 PM EDT [facility] Chloride 105 96 - 110 mmol/L LAB CHEMISTRY METHOD 11/04/2024 3:34 PM EDT [facility] CO2 27 21 - 32 mmol/L LAB CHEMISTRY METHOD 11/04/2024 3:34 PM [facility] Anion Gap 8 3 - 11 LAB CHEMISTRY METHOD 11/04/2024 3:34 PM [facility] Glucose 131(H) 70 - 100 mg/dL LAB CHEMISTRY METHOD 11/04/2024 3:34 PM [facility] BUN 17 5 - 25 mg/dL LAB CHEMISTRY METHOD 11/04/2024 3:34 PM [facility] Creatinine 0.96 0.70 - 1.30 mg/dL LAB CHEMISTRY METHOD 11/04/2024 3:34 PM [facility] eGFR 99 >=60 mL/min/1. 73m2 LAB CHEMISTRY METHOD 11/04/2024 3:34 PM [facility] Comment:Calculation based on the??Chronic Kidney Disease Epidemiology Collaboration (CKD-EPI) equation refit??without adjustment for race. BUN/Creatinine Ratio 17.7 LAB CHEMISTRY METHOD 11/04/2024 3:34 PM [facility] Calcium 9.3 8.5 - 10.5 mg/dL LAB CHEMISTRY METHOD 11/04/2024 3:34 PM [facility] AST (SGOT) 16 10 - 42 unit/L LAB CHEMISTRY METHOD 11/04/2024 3:34 PM [facility] ALT (SGPT) 27 10 - 60 unit/L LAB CHEMISTRY METHOD 11/04/2024 3:34 PM [facility] Alkaline Phosphatase 96 42 - 121 unit/L LAB CHEMISTRY METHOD 11/04/2024 3:34 PM [facility] Total Protein 7.8 6.0 - 8.0 g/dL LAB CHEMISTRY METHOD 11/04/2024 3:34 PM [facility] Albumin 3.8 3.2 - 5.0 g/dL LAB CHEMISTRY METHOD 11/04/2024 3:34 PM [facility] Total Bilirubin 0.3 0.0 - 1.4 mg/dL LAB CHEMISTRY METHOD 11/04/2024 3:34 PM EDT [facility] Blood Venous blood specimen / Unknown Venipuncture / Unknown 11/04/2024 11:28 AM EDT 11/04/2024 11:28 AM EDT us Mirlande Dean MD LAB BLOOD ORDERABLES Final Resul t [facility] [address] [place] [address], [place] [phone] documented in this encounter Visit Diagnoses Diagnosis Preop cardiovascular exam- Primary Pre-operative cardiovascular examination Fatty liver disease, nonalcoholic Bipolar affective disorder, remission status unspecified ([facility]) Obesity (BMI 30.0-34.9) Type 2 diabetes mellitus without complication, without long-term current use of insulin ([facility]) SAGE (obstructive sleep apnea) Obstructive sleep apnea (adult) (pediatric) Hyperlipidemia, unspecified hyperlipidemia type Psoriatic arthritis ([facility]) Psoriatic arthropathy documented in this encounter Additional Health Concerns Assessment Noted Time PHQ-9 Depression Total Score: 14 025 12:26 PM EDT documented as of this encounter Care Teams Home Teaching Grades 7 And 8 Teacher Relationship Specialty Start Date End Date Mirlande Dean MD [address] [place] [address] PCP - General Internal Medicine 11/02/17 documented as of this encounter
--- OUTSIDE RECORDS SUMMARY | 2024-11-05 12:54 | XMS_ITS | Clinical Summary ---
Author Organization [facility] Address [address] [place] [address] Care Team Providers Care Welding Machine Operator Plasma Arc Name Role Phone Mirlande Dean MD Primary Care Provider [phone] Allergies Active Allergy Reactions Severity Noted Date Comments Seasonal Allergies 03/28/2017 Medications Medication Sig Dispensed Refills Start Date End Date Status aripiprazole (ABILIFY) 10 MG tablet Take 20 mg by mouth at bedtime. 0 Active Fenofibrate 145 MG Tab Take 145 mg by mouth daily. 90 Tablet 1 03/13/2022 Active FreeStyle Lancets Misc Use to test blood sugars once daily 300 Each 3 06/13/2022 Active Blood Glucose Monitoring Suppl (FreeStyle Lite) Device Use to test blood sugars once daily 1 Each 0 06/14/2022 Active folic acid (FOLVITE) 1 MG tablet Take 1 Tablet by mouth daily. 0 08/25/2022 Active ibuprofen (ADVIL,MOTRIN) 400 MG tablet Take 1 Tablet by mouth every 6 hours as needed for Pain. 40 Tablet 0 11/07/2022 Active atorvastatin (LIPITOR) 20 MG tablet TAKE 1 TABLET BY MOUTH EVERY DAY 90 Tablet 1 01/12/2023 Active Glucose Blood (FREESTYLE LITE) Strip Use to test blood sugar once daily 100 Strip 3 01/08/2023 Active Humira Pen 40 MG/0.4ML Pen-injector KitIndications:Type 2 diabetes mellitus with other specified complication, without long-term current use of insulin (HCC) every 14 days. 0 12/28/2022 Active methotrexate 2.5 MG tabletIndications:T ype 2 diabetes mellitus with other specified complication, without long-term current use of insulin (HCC) TAKE 6 TABLETS BY MOUTH EVERY WEEK 0 12/26/2022 Active trazodone (DESYREL) 50 MG tabletIndications:T ype 2 diabetes mellitus with other specified complication, without long-term current use of insulin ([facility]) Take 2 Tablets by mouth every evening. 0 01/09/2023 Active hydrOXYzine (ATARAX) 50 MG tablet TAKE 1 TABLET BY MOUTH EVERYDAY AT BEDTIME 90 Tablet 1 02/27/2023 Active gabapentin (NEURONTIN) 300 MG capsule TAKE 1 CAPSULE BY MOUTH THREE TIMES A DAY 0 05/01/2023 Active sildenafil (VIAGRA) 100 MG tablet Take one tablet by mouth one hour prior to anticipated sexual activity. 12 Tablet 1 09/27/2023 Active amphetamine-dextroa mphetamine (ADDERALL) 15 MG tablet Take 1 Tablet by mouth daily. 0 Active Dulaglutide (Trulicity) 1.5 MG/0.5ML Solution Pen-injectorIndicat ions:Type 2 diabetes mellitus with other specified complication, without long-term current use of insulin ([facility]) Inject 1.5 mg into the skin every 7 days. 2 mL 5 01/17/2024 Active Insulin Glargine (Lantus SoloStar) 100 UNIT/ML Solution Pen-injectorIndicat ions:Type 2 diabetes mellitus with other specified complication, without long-term current use of insulin ([facility]) Inject 30 Units into the skin at bedtime. 15 mL 5 01/17/2024 Active Meclizine HCl 12.5 MG Tab Take 1 Tablet by mouth daily as needed (dizziness). 30 Tablet 1 01/22/2024 Active BD Pen Needle Alda 2nd Gen 32G X 4 MM Misc USE ONE DAILY WITH VICTOZA 100 Each 1 06/10/2024 Active ALBUTEROL SULFATE 108 (90 Base) MCG/ACT Aero SolnIndications:SAGE (obstructive sleep apnea),Mild persistent asthma, unspecified whether complicated Inhale 2 Puffs into the lungs every 4 hours as needed for Wheezing for up to 30 days. 8.5 g 1 06/13/2024 Active fluticasone 50 MCG/ACT nasal sprayIndications:OS A (obstructive sleep apnea) 2 Sprays by Nasal route daily. 1 g 5 06/13/2024 Active Active Problems Problem Noted Date Psoriatic arthritis 01/01/2024 Overview: On multiple agents followed by rheumatology. Type 2 diabetes mellitus 05/18/2020 Hypertriglyceridemia 05/08/2019 Obstructive sleep apnea catarina re AHI 84 with sleep related hypoxia 25% of night 06/27/2017 Overview: [facility] Home Polysomnogram: Date 06/25/2017; AHI 84, Unclassified apneas 0; Obstructive apneas 460; Central apneas 1; Mixed apneas 2; hypopneas 153; average oxygen saturation 91% (lowest 65% with saturations <88% for 5% or more of study) Hyperlipidemia 03/28/2017 Obesity (BMI 30.0-34.9) 01/01/2017 Fatty liver disease, nonalcoholic 2016 Overview: Dr. Guzman Low back pain 07/23/2013 Overview: Dr. Triana - in [place]; fusion of L4-L5 Bipolar disorder 07/23/2013 Overview: Psychiatrist - Dr. Son Anxiety 07/23/2013 Immunizations Name Administration Dates Next Due COVID-19 (Pfizer) 08/05/2021,06/22/2021 Influenza (> 6 Months) 07/23/2013 Influenza Vaccine-preservati ve Free-quadrivalent 4 Years 07/04/2023,05/09/2022,05/07/2019, 018,09/07/2017 PPD Negative Response(Internal) 05/09/2019 PPD-RBMG 05/07/2019 PREVNAR 20 07/04/2023 Tdap 07/23/2013 Family History Medical History Relation Name Comments Diverticulitis Mother Fibromyalgia Mother Cancer of the Colon Uncle Paternal Relation Name Status Comments Father Alive Healthy Mother Alive Thyroid disorde r, joint pain, anxiety, fibromyalgia Sister Alive Healthy Uncle Social History Tobacco Use Types Packs/Day Years Used Date Smoking Tobacco: Some Days Cigarettes 0.3 Smokeless Tobacco: Never Comments:Smoking 6 cigarette s weekly Alcohol Use Standard Drinks/Week Comments Yes 0 (1 standard drink = 0.6 oz pur e alcohol) Rare Sex Assigned at Date Recorded Male 07/03/2023 9:[address] Job Start Date Occupation Industry Not on file Not on file Not on file Last Filed Vital Signs Vital Sign Reading Time Taken Comments Blood Pressure 126/70 06/13/2024 3:53 PM EDT Pulse 90 06/13/2024 3:53 PM EDT Temperature 36.4 ??C (97.5 ??F) 06/13/2024 3:53 PM ED T Respiratory Rate 20 06/13/2024 3:53 PM EDT Oxygen Saturation 98% 06/13/2024 3:53 PM EDT Inhaled Oxygen Concentration - - Weight 91.2 kg (201 lb) 06/13/2024 3:53 PM EDT Height 167.6 cm (5' 6 ) 06/13/2024 3:53 PM EDT Body Mass Index 32.44 06/13/2024 3:53 PM EDT Plan of Treatment Health Maintenance Due Date Last Done Comments BASELINE HEALTH EXAM 40-64 05/07/202105/07, 07/23/2013, 07/23/2013 DTAP/TDAP/TD (2 - Td or Tdap) 07/23/2023 07/23/2013 DIABETES/HEART DISEASE: JONATHON AL CHOLESTEROL (LDL) 10/21/2023 10/20/2022, 06/14/2022, 05/20/2021, Additional history exists DIABETES: ANNUAL URINE PROTE IN TEST (MICROALBUMIN) 10/21/2023 10/20/2022, 12/06/2021, 08/17/2020 DIABETES: ANNUAL FOOT EXAM 11/21/202311/20 (Completed), 09/13/2021 DIABETES: ANNUAL EYE EXAM 03/20/20242022, 12/09/2021, 12/09/2021 (External Completion) DIABETES: BLOOD SUGAR CONTRO L TEST (HGBA1C) 03/29/2024 12/28/2023, 06/14/2023, 06/14/2023, Additional history exists Covid-19 Vaccine (3 2022-2 4 season) 2024 08/05/2021, 06/22/2021 INFLUENZA (#1) 2024 07/04/2023, 04/21, 05/07/2019, Additional history exists BMI CHECK/ADVISE 08/20/2024 01/17/2024, , 12/18/2023, Additional history exists DEPRESSION SCREENING/FOLLOWUP 08/20/2024 (Completed), 05/09/2022, 01/04/2021, Additional history exists SOCIAL NEEDS SCREENING 08/20/2024 , 11/22/2020, 07/27/2020, Additional history exists PNEUMOCOCCAL VACCINE FOR HIG H RISK PATIENTS (#2) 2043 07/04/2023 Care Teams Welding Machine Operator Plasma Arc Relationship Specialty Start Date End Date Mirlande Dean MD [address] [place] [id number] PCP - General Internal Medicine 11/02/17
--- OUTSIDE RECORDS SUMMARY | 2024-11-05 12:54 | XMS_ITS | Encounter Summary ---
Author Organization [facility] Address [address] [place] [address] Care Team Providers Care Folder Taper Operator Name Role Phone Mirlande Dean MD Primary Care Provider [phone] Reason for Visit * Reason Onset Date Comments Labs Only 10/23/2024 Encounter Details Date Type Department Care Team ([facility] st Contact Info) Description 10/23/2024 Telephone [facility] [address] [place] [address] Mackenzie Hoffman PA [address] [place] [address] Labs Only Social History Tobacco Use Types Packs/Day Years [...] for your loved ones. For example, child specialist or elderly care for an older [...] as of this encounter Progress Notes * Gretchen Rivas RN - 10/24/2024 2:01 PM EST Lab drawn today at 12:30pm * MARCELO Quevedo - 10/23/2024 3:52 PM EST Order. Not sure if there is anything else he needed to discuss with us regarding his surgery * Herbert Carmichael MA - 10/23/2024 3:30 PM EST Re message below, pt walked in now asking to speak to you about this. We let him know it doesn't work that way but we will try to send this in by tomorrow. Wants an A1c put in before his pre op on Sunday * Yenny Rico - 10/23/2024 3:09 PM EST Patient needs lab orders for A1C enetered agus . He is having surgery on the but needs the results for Sunday for his pre op appointment . Any questions he can be reached at [phone] documented in this encounter Plan of Treatment Upcoming Encounters Date Type Department Care Team (Late st Contact Info) Description 01/20/2025 3:30 PM EDT Office Visit Endocrinology [address] [phone] Mackenzie Hoffman PA [address] [place] [address] 06/15/2025 3:30 PM EDT Office Visit Pulmonolgy - [place] [address] [place] [phone] Melissa Llamas MD [address] [facility] [place] [address] [place] [address] documented as of this encounter Results * Hemoglobin A1c (10/24/2024 12:30 PM EST) Hemoglobin A1C 5.8 <6.5 % LAB CHEMISTRY METHOD 10/24/2024 10:06 PM EST [facility] Mean Bld Glu Estim. 120 mg/dL LAB CHEMISTRY METHOD 10/24/2024 10:06 PM EST [facility] Blood Venous blood specimen / Unknown Venipuncture / Unknown 10/24/2024 12:30 PM EST 10/24/2024 12:30 PM EST us [facility] BLOOD ORDERABLES Final Result [facility] [address] [place] [address], documented in this encounter Visit Diagnoses Diagnosis Type 2 diabetes mellitus with other specified complication, unspecified whether termite control servicer insulin use ([facility])- Primary documented in this encounter Additional Health Concerns Assessment Noted Time PHQ-9 Depression Total Score: 1 07/23/20 24 5:54 PM EST documented as of this encounter Care Teams Folder Taper Operator Relationship Specialty Start Date End Date Mirlande Dean MD [address] [place] [phone] PCP - General Internal Medicine 11/02/17 documented as of this encounter
--- OUTSIDE RECORDS SUMMARY | 2024-11-05 12:54 | XMS_ITS | Encounter Summary ---
Author Organization [facility] Address [address] [place] [address] Care Team Providers Care Farm Machine Tender Name Role Phone Mirlande Dean MD Primary Care Provider [phone] Encounter Details Date Type Department Care Team Description 02/28/2023 Release of Information [facility] [address] [place] [address] [place] [phone] Rufino Azul, SEVERINO Social History Tobacco Use Types Packs/Day Years [...] suspected to have Coronavirus/COVID-19? No / Unsure 02/28/2023 2:55 PM EDT documented as of this encounter Plan of Treatment Not on file documented as of this encounter Visit Diagnoses Not on filedocumented in this encounter Care Teams Farm Machine Tender Relationship Specialty Start Date End Date Mirlande Dean MD [address] [place] [address] PCP - General Internal Medicine 11/02/17 documented as of this encounter
--- OUTSIDE RECORDS SUMMARY | 2024-11-05 12:54 | XMS_ITS | Encounter Summary ---
Author Organization [facility] Address [address] [place] [address] Care Team Providers Care Supervisor Capacitor Processing Name Role Phone Mirlande Dean MD Primary Care Provider [phone] Encounter Details Date Type Department Care Team Description 08/25/2022 Home Coordinator Report Medical Records [address] [place] [phone] Yvette Rosario MD Social History Tobacco Use [...] suspected to have Coronavirus/COVID-19? No / Unsure 07/31/2022 8:34 AM EST documented as of this encounter Plan of Treatment Not on file documented as of this encounter Visit Diagnoses Not on filedocumented in this encounter Care Teams Supervisor Capacitor Processing Relationship Specialty Start Date End Date Mirlande Daen MD [address] [place] [address] PCP - General Internal Medicine 11/02/17 documented as of this encounter
--- OUTSIDE RECORDS SUMMARY | 2024-11-05 12:54 | XMS_ITS | Encounter Summary ---
Author Organization [facility] Address [facility] [place] [address] Care Team Providers Care Channel Rebuilder Name Role Phone Mirlande Dean MD Primary Care Provider [phone] Encounter Details Date Type Department Care Team Description 01/22/2024 Agricultural Equipment Test Engineer Report Medical Records [address] [place] [address] Nabila Pugh MD Social History Tobacco Use Types Packs/Day Years Used Date Smoking Tobacco: Some Days Cigarettes 0.3 Smokeless Tobacco: Never Alcohol Use [...] on filedocumented in this encounter Care Teams Channel Rebuilder Relationship Specialty Start Date End Date Mirlande Dean MD [address] [place], [place] [phone] PCP - General Internal Medicine 11/02/17 documented as of this encounter
--- OUTSIDE RECORDS SUMMARY | 2024-11-05 12:54 | XMS_ITS | Encounter Summary ---
Author Organization [facility] Address [address] [place] [address] Care Team Providers Care Furniture Maker Name Role Phone Mirlande Dean MD Primary Care Provider [phone] Encounter Details Date Type Department Care Team Description 10/17/2023 Senior Producer Report Medical Records [address] [place] [address] Dewayne Harrington Social History Tobacco Use Types Packs/Day Years [...] on filedocumented in this encounter Care Teams Furniture Maker Relationship Specialty Start Date End Date Mirlande Dean MD [address] [place] [address] [phone] PCP - General Internal Medicine 11/02/17 documented as of this encounter
--- OUTSIDE RECORDS SUMMARY | 2024-11-05 12:54 | XMS_ITS | Encounter Summary ---
Author Organization [facility] Address [address] [place] [address] Care Team Providers Care Economics Consultant Name Role Phone Mirlande Dean MD Primary Care Provider [phone] Reason for Visit * Reason Comments E-prescribe Rx Request Encounter Details Date Type Department Care Team Description 02/25/2023 Refill Adult Medicine [address] [phone] Mirlande Dean MD [address] [place] [address] [phone] E-prescribe Rx Request Social History Tobacco Use Types Packs/Day [...] PM EDT documented as of this encounter Miscellaneous Notes * Telephone Encounter - Alicia Sanford M.A. - 02/26/2023 2:10 PM EDT Last office visit 12/20/22 Next office visit 03/22/23 Lab Results Component Value Date ALB 3.8 03/13/2022 SGOT 30 03/13/2022 SGPT 47 03/13/2022 TBILI 1.0 03/13/2022 DBILI < 0.1 12/06/2021 IBILI 0.2 12/06/2021 ALKPHOS 78 03/13/2022 TP 7.5 03/13/2022 * Telephone Encounter - Darleen Armenta - 02/25/2023 8:46 AM EDT Patient would like script to be: E-PRESCRIBED/FAXED TO PHARMACY WHEN WAS THE PATIENT'S LAST APPOINTMENT IN ADULT MEDICINE? 12/20/22 WHEN WAS THE LAST TIME THE PATIENT SAW THEIR PCP? Same as above Does patient have an upcoming appointment? Yes 03/22/23 (THE MEDICATION REQUESTED IS ON THE MED LIST ABOVE) All of the medications requested were on the CURRENT MEDS list Did you check the Pharmacy information above?: YES Patient wants: 90 -day supply Is this a mail order prescription request ? NO If the refill is from a FAXED refill request what is the RX # listed on the fax? N/A Patients current insurance carrier is: Payor: [facility] FFS / Plan: [facility] / Product Type: MEDICAID RISK documented in this encounter Plan of Treatment Not on file documented as of this encounter Visit Diagnoses Not on filedocumented in this encounter Care Teams Economics Consultant Relationship Specialty Start Date End Date Mirlande Dean MD [address] [place] [address] PCP - General Internal Medicine 11/02/17 documented as of this encounter
--- OUTSIDE RECORDS SUMMARY | 2024-11-05 12:54 | XMS_ITS | Encounter Summary ---
Author Organization [facility] Address [address] [place] [address] Care Team Providers Care Onion Farmer Name Role Phone Mirlande Dean MD Primary Care Provider [phone] Encounter Details Date Type Department Care Team Description 02/23/2023 Volumetric Weigher Report Medical Records [address] [place] [address] Willie Diaz Social History Tobacco Use Types [...] on filedocumented in this encounter Care Teams Onion Farmer Relationship Specialty Start Date End Date Mirlande Dean MD [address] [place] [address] [phone] PCP - General Internal Medicine 11/02/17 documented as of this encounter
--- OUTSIDE RECORDS SUMMARY | 2024-11-05 12:54 | XMS_ITS | Encounter Summary ---
Author Organization [facility] Address [address] [place] [address] Care Team Providers Care Drying Machine Receiver Name Role Phone Mirlande Dean MD Primary Care Provider [phone] Encounter Details Date Type Department Care Team Description 12/18/2023 Orders Only Radiology - [address] [phone] Mirlande Dean MD [address] [place] [address] [phone] Social History Tobacco Use Types Packs/Day Years Used Date Smoking Tobacco: Former Cigarettes 0.3 Smokeless Tobacco: Never Alcohol Use [...] on filedocumented in this encounter Care Teams Drying Machine Receiver Relationship Specialty Start Date End Date Mirlande Dean MD [address] [place] [address] PCP - General Internal Medicine 11/02/17 documented as of this encounter
--- OUTSIDE RECORDS SUMMARY | 2024-11-05 12:54 | XMS_ITS | Encounter Summary ---
Author Organization [facility] Address [address] [place] [address] Care Team Providers Care Railroad Engineer Name Role Phone Mirlande Dean MD Primary Care Provider [phone] Reason for Visit * Reason Comments E-prescribe Rx Request Encounter Details Date Type Department Care Team Description 06/09/2024 Refill Endocrinology - [address] [address] Jacqueline Torre PA-C [address] [place] [address] [phone] E-prescribe Rx Request Social History Tobacco Use [...] on filedocumented in this encounter Care Teams Railroad Engineer Relationship Specialty Start Date End Date Mirlande Dean MD [address] [place] [address] [phone] PCP - General Internal Medicine 11/02/17 documented as of this encounter
--- OUTSIDE RECORDS SUMMARY | 2024-11-05 12:54 | XMS_ITS | Data Portability ---
Author Organization MARCELO Perez [facility], [address] Address [address] [place] [address] Care Team Providers Care Transit Coach Operator Name Role Phone [facility] [[email or web address] Prim julia Care Provider Assessment No assessment recorded. Plan of Treatment Reminders Order Date Submit Date Provider Last Modified By Organization Details Last Modified Time Details Appointments None recorded. Lab rapid strep group A, throat 2022 023 [email or web address] [address]100[address], [address] [place] [address], [id number], 3 16:03:23 Referral None recorded. Procedures None recorded. Surgeries None recorded. Imaging None recorded. Medication Orders Florastor 250 mg capsule 2022 023 [id number], [address] [place], [address], 3 16:03:23 ibuprofen 800 mg tablet 2022 023 [id number], [address] [facility] [place], [address], 3 16:03:22 cephalexin 500 mg capsule 2022 023 [id number], [address] [place], [address], 3 17:47:11 Allergy Relief (fluticason e) 50 mcg/actuati on nasal spray,suspe nsion 2021 022 [facility]/Pharmacy #[id number], [address] [facility] [place], [address], 18:26:34 loratadine 10 mg tablet [address]/Pharmacy #[id number], [address] [place], [address], 15:43:49 Ciloxan 0.3 % eye drops [address]/Pharmacy #[id number], [address] [place], [address], 15:41:35 Patient TargetsNo targets recorded. Patient Instructions Encounter Date Encounter Id Patient Instructions Last Modified By Organization Details Last Modified Time 07/23/2022 [id number] eustachian tube problems: care instructions Not available 07/23/2022 18:26:30 Based on your presentation and exam, you are going diagnosed with Conjunctivitis. I am going to cover you for a bacterial infection in the eye with antibiotic eye drops. Sometimes these symptoms can be caused by a virus or allergies. Viral infections with spontaneously resolve after 7-10 days and do not require treatment. If it is an allergy cause sometime oral allergy medications will help with these symptoms or a allergy eye drop that can be purchased OTC. The following are my recommendations to help with your symptoms and this diagnosis: 1. Do not rub your eyes this can cause it to spread or damage the cornea of your eye. 2. Wash surfaces such as cell phones, remotes, door knob frequently, because this is how it is transmitted to others. 3. Do not wear contacts for at least 1 week if you have contacts. 4. No makeup 5. You can take Ibuprofen or Tylenol for discomfort if you are not allergic to them. 6. If you get lubricating eye drops and put them in the refrigerator - this can help with itching and discomfort. You should be seen again if you develop any of the following symptoms 1. Eye pain or pressure behind the eye. 2. Redness or significant swelling of the eyelid or around the eye 3. Headache 4. Fever > 100.5 5. No improvement in current symptoms in the next 1 week. Thank you for using [facility] today, please feel free to contact us with any questions or concerns. [email or web address] Not available 07/23/2022 18:25:58 05/16/2023 [id number] sore throat: car e instructions Not available 05/16/2023 16:03:20 Based on your Presentation, Exam, and Lab Testing you are being diagnosed with Streptococcal Pharyngitis/Tonsill itis. Your Rapid Strep Test was Positive. The following are my other recommendations to help with symptoms and is important for this diagnosis: 1. Do not share any food or drinks - strep is passed through direct saliva exchange (NOT IN THE AIR) 2. Take Ibuprofen or Tylenol if you do not have any allergies to these medications. If you take a blood thinner you should not take NSAIDS like Ibuprofen. These medication will help with the inflammation in your respiratory tract which should help the cough. (I would alternate between Tylenol 650 mg and your Ibuprofen 600 mg every 4 hours) 3. Do not take any Cold Medications that have a Decongestant in it - this will dry out your throat and make the sore throat worse. 4. Drinking Hot Tea with honey can help coat and soothe your throat. 5. You would be considered contagious for the next 24-48 hours, or until fever resolves. I would be seen again if you develop any of the following symptoms. 1. Fever > 101.0 2. Stiff neck - where you can't turn your neck 3. Trouble swallowing your saliva - drooling 4. Swelling of a lymph node in your throat that is painful to touch 5. Difficulty breathing 6. Severe Headache Thank you for using [facility] today, please feel free to contact our office if you have any questions or concerns. [email or web address] Not available 05/16/2023 16:04:52 Patient will ret urn on Sunday if no improvement. Pt agrees with plan [email or web address] Not available 05/16/2023 16:08:08 Reason for Referral None Reported. Results Created Date Observation Date Name Description Value Unit Range Abnormal Flag Note LastModifiedBy Organization Detail LastModifiedTime 05/16/20 23 05/16/2023 rapid strep group A, throa t Unknown Analyte positi ve Not Available [address] [place], [address], 05/16/2023 15:45:19 05/16/20 23 05/16/2023 rapid strep group A, throa t Unknown Analyte yes Not Available [address] [facility] [address] [place], [address], 05/16/2023 15:45:19 Result Notes None recorded. Problems Name Problem SNOMED Code Status Onset Date Resolution Date Notes Provider Name and Address Organization Details Recorded Time Hypercholester olemia 05288979 Active 2022 JAMILA BABB null, PA - [facility] 3 15:44:40 Anxiety 65456899 Active 2022 JAMILA BABB null, PA - [facility] 3 15:44:54 Diabetes mellitus 99262044 Active CIERA CHAD CARRIZALES null, PA - [facility] 2 17:57:10 Chronic back pain 828765104 Active WHARTON CHAD CARRIZALES null, PA - [facility] 2 17:57:21 Problem Notes None recorded. Procedures Surgical History Date Name Laterality Status Provider Name and Address Organization Details Recorded Time lumbar spinal fusion completed CIERA JOSEPH PA - [facility] 07/23/2022 17:57:40 Imaging Results None recorded. Procedure Notes None recorded. Medical Equipment None Reported. Allergies No known drug allergies Medications Name Sig Start Date Stop Date Status Note LastModified by Organization Details LastModified Time atorvastati n 20 mg tablet TAKE 1 TABLET BY MOUTH EVERY DAY active Not Available Not Available No t Available trazodone 50 mg tablet TAKE 1 TO 2 TABLETS BY MOUTH AT BEDTIME NEEDED active Not Available Not Available No t Available ibuprofen 800 mg tablet Take 1 tablet 3 times a day by oral route as needed for 10 days. 2022 active Not Available Not Available Not Avai lable hydroxyzine HCl 50 mg tablet TAKE 1 TABLET BY MOUTH EVERYDAY AT BEDTIME 05/16 completed Not Available Not Available Not Available methotrexat e sodium 2.5 mg tablet TAKE 6 TABLETS (15 MG) BY MOUTH EVERY WEEK *MAX 90 DAY PER INS active Not Available Not Available No t Available ciprofloxac in 0.3 % eye drops INSTILL 2 DROPS INTO AFFECTED EYE 3 TIMES A DAY FOR 7 DAYS 05/16 completed Not Available Not Available Not Available cephalexin 500 mg capsule Take 1 capsule twice a day by oral route for 10 days. 2022 active Not Available Not Available Not Avai lable erythromyci n 5 mg/gram (0.5 %) eye ointment APPLY 0.25 INCH STRIP INTO RIGHT EYE EVERY EVENING 05/16 completed Not Available Not Available Not Available ibuprofen 400 mg tablet TAKE 1 TABLET BY MOUTH EVERY 6 HOURS NEEDED FOR PAIN 05/16 completed Not Available Not Available Not Available gabapentin 300 mg capsule TAKE 1 CAPSULE BY MOUTH THREE TIMES A DAY active Not Available Not Available No t Available folic acid 1 mg tablet TAKE 1 TABLET BY MOUTH EVERY DAY active Not Available Not Available No t Available fluticasone propionate 50 mcg/actuati on nasal spray,suspe nsion SPRAY 2 SPRAYS BY NASAL ROUTE DAILY active Not Available Not Available No t Available loratadine 10 mg tablet TAKE 1 TABLET BY MOUTH EVERY DAY FOR 30 DAYS 05/16 completed Not Available Not Available Not Available Ventolin HFA 90 mcg/actuati on aerosol inhaler PLEASE SEE ATTACHED FOR DETAILED DIRECTION S active Not Available Not Available No t Available tobramycin 0.3 %-dexametha sone 0.1 % eye drops,suspe nsion INSTILL 1 DROP INTO RIGHT EYE 4 TIMES A DAY 05/16 completed Not Available Not Available Not Available hydroxyzine pamoate 25 mg capsule TAKE 1 CAPSULE BY MOUTH 3 TIMES A DAY NEEDED FOR ANXIETY active Not Available Not Available No t Available escitalopra m 10 mg tablet PLEASE SEE ATTACHED FOR DETAILED DIRECTION S active Not Available Not Available No t Available aripiprazol e 10 mg tablet TAKE 1 TABLET BY MOUTH EVERY DAY DIRECTED active Not Available Not Available No t Available Florastor 250 mg capsule Take 1 capsule twice a day by oral route for 14 days. 2022 active Not Available Not Available Not Avai lable FreeStyle Lite Strips USE TO TEST BLOOD SUGAR ONCE DAILY active Not Available Not Available No t Available Lanmalik Soladamar U-100 Insulin 100 unit/mL (3 mL) subcutaneou s pen INJECT 10 UNITS INTO THE SKIN AT BEDTIME. active Not Available Not Available No t Available BD Ultra-Fine Alda Pen Needle 32 gauge x 5/32 USE ONE DAILY WITH VICTOZA. active Not Available Not Available No t Available Trulicity 1.5 mg/0.5 mL subcutaneou s pen injector INJECT 1 DOSE INTO THE SKIN ONCE A WEEK 05/16 completed Not Available Not Available Not Available Trulicity 05/16 completed Not Available Not Available Not Available Humira(CF) Pen 40 mg/0.4 mL subcutaneou s kit active Not Available Not Available Not Available Trulicity 3 mg/0.5 mL subcutaneou s pen injector INJECT 3 MG INTO THE SKIN EVERY 7 DAYS active Not Available Not Available No t Available insulin glargine-yf gn (U-100) 100 unit/mL (3 mL) subcutaneou s pen INJECT 25 UNITS INTO THE SKIN AT BEDTIME. active Not Available Not Available No t Available Vitals Date Recorded Body height Body mass index (BMI) Body weight Respiratory rate Body temperature Oxygen saturation Oxygen saturation in Arterial blood by Pulse oximetry Heart rate Systolic blood pressure Diastolic blood pressure Provider Name and Address Organization Details Last Updated DateTime 3 167.64 cm 33.6 kg/m2 52255.2 1 g 18 /min 97.5 [degF] 98 % 98 % 82 /min 107 mm[Hg] 70 mm[Hg] JAMILA ROBERTSON - [facility] 3 15:47:56 Date Recorded Body height Body mass index (BMI) Body weight Pain severity - 0-10 verbal numeric rating [Score] - Reported Respiratory rate Oxygen saturation Oxygen saturation in Arterial blood by Pulse oximetry Heart rate Body temperature Systolic blood pressure Diastolic blood pressure Provider Name and Address Organization Details Last Updated DateTime 2 167.64 cm 33.9 kg/m2 82373.4 g 0 18 /min 98 % 98 % 95 /min 98.3 [degF] 130 mm[Hg] 76 mm[Hg] CIERA ROBERTSON - [facility] [facility] 2 18:01:01 Social History Question Answer Notes LastModified by Organizat ion Details LastModified Time Tobacco Smoking Status Current Every Day Smoker MARCELO Flores - [facility] 07/23/2022 17:58:45 What Is Your Level Of Alcohol Consumption? None Information not available 07/23/2022 Have You Had Direct Contact, Or Contact During Intimacy, With Monkeypox Rash, Scabs, Or Body Fluids From A Person With Monkeypox? No Information not available 07/23/2022 How Much Tobacco Do You Smoke? 0.25 PPD Information not available 07/23/2022 Do You Use Any Illicit Or Recreational Drugs? No Information not available 07/23/2022 Have You Recently Traveled Abroad? No Information not available 07/23/2022 Do You Or Have You Ever Used Any Other Forms Of Tobacco Or Nicotine? No Information not available 07/23/2022 Sex: Unknown Functional Status None recorded. Mental Status None recorded. Family History Relationship Description Onset Age of this Age Resolved Age Notes LastModified by Organization Details LastModified Time Mother Fibromyalgia Not a vailable 07/23/2022 17:58:08 Maternal Uncle Diabetes mellitus Not available 11/2021 17:58:22 Medical History No medical history recorded. Past Encounters Encounter ID Performer Location Encounter Start Date Encounter Closed Date Diagnosis/Indication Diagnosis SNOMED-CT Code Diagnosis ICD10 Code Diagnosis Note [id number] MARCELO BILLY [address] [address] 07/23/2022 17:01:57 07/23/2022 18:29:23 Acute conjunctivitis of right eye 2497636420 63794 H10.31 Dysfunctio n of right eustachian tube 2080657611 568740 H69.91 [id number] MARCELO CENTENO [address] [place] [address] 05/16/2023 14:42:40 05/16/2023 16:05:34 Sore throat 298184659 J02.9 Acute tonsillitis 592103 08 J03.90 Health Concerns Section Related Observation LastModified by Organization Detai ls LastModified Time None Recorded Concern Status LastModified by Organization Details LastModified Time None Recorded Advance Directives Directive None Recorded Payers Encounter Date Sequence Insurance Name Policy Number Policy Bain Covered Member ID Bain Member ID Guarantor Name 07/23/2022 1 [facility] (MEDICAID REPLACEMENT - HMO) FLORA Acevedozquez [id number] Ronni Humberto 05/16/2023 1 [facility] (MEDICAID REPLACEMENT - HMO) FLORA Acevedozquez [id number] Ronni Humberto Notes Date Note Type Note Provider Name and Address Organization Details Recorded Time 07/23/2022 text/html Eye problemsRepo rted bypatient.Eye Symptoms:no sensitivity to light; no pain in the eyes; no blurred vision;redness;dischar ge;itching Severity:mild Onset/Timinweeks Modifying Factors:Does not wear contactsNotes:Worse in the AM - eyes crusted. Constant yellow discharge. Left eye not affected. No pressure behind eye. No FB feeling. Does not wear contacts.Ear Pain Brief HPIReported bypatient.Location:rig ht Onset/Timing:started 1months ago Quality:no itching; no discharge from the ears; no burning Severity:no fever; no interference with sleep Context:no recent URI; no recent trauma; no recent ear infection; non-smoker Alleviating factors:NSAIDs; Ibuprofen not helping. Associated Symptoms:no cough; no discharge from ear; no nasal congestion; no sore throat; no tinnitus MARCELO BILLY [address] [place], [address], [place] - [facility] 07/23/2022 18:32:11 05/16/2023 text/html Sore throatRepor dk bypatient.Notes:43 y.o male pt presents with sore throat and swollen lymph nodes since Sunday. Pain is getting worse and radiating to his left and right ear. Pt is speaking and swallowing normal. MARCELO CENTENO [address], [address], PA - [facility] 05/16/2023 17:47:12
--- OUTSIDE RECORDS SUMMARY | 2024-11-05 12:54 | XMS_ITS | Encounter Summary ---
Author Organization [facility] Address [address] [place] [address] Care Team Providers Care Detective Youth Bureau Name Role Phone Mirlande Dean MD Primary Care Provider [phone] Encounter Details Date Type Department Care Team Description 07/21/2022 Telephone Adult Medicine [address] [id number] Mirlande Dean MD [address] [place] [address] Social History Tobacco Use Types Packs/Day Years [...] suspected to have Coronavirus/COVID-19? No / Unsure 07/04/2022 1:53 PM EST documented as of this encounter Plan of Treatment Not on file documented as of this encounter Visit Diagnoses Not on filedocumented in this encounter Care Teams Detective Youth Bureau Relationship Specialty Start Date End Date Mirlande Dean MD [address] [place] [address] PCP - General Internal Medicine 11/02/17 documented as of this encounter
--- OUTSIDE RECORDS SUMMARY | 2024-11-05 12:55 | XMS_ITS | Encounter Summary ---
[facility] Address [address] [place] [address] Care Team Providers Care Medical Laboratory Manager Name Role Law ProfessorOral Long MD Primary Care Provider Unavailab Mirlande Menezes MD Primary Care Provider [phone] Encounter Details Date Type Department Care Team Description 08/04/2013 INDUSTRIAL GAS SERVICE HELPER/[employer] Report Medical Records [address] [place] [address] Abstract, Provider Social History Tobacco Use Types Packs/Day Years Used Date Smoking Tobacco: Never Alcohol Use Standard Drinks/Week Comments No 0 (1 standard drink = 0.6 oz pur e alcohol) Rare Sex Assigned at Date Recorded Male 07/03/2023 9:[address] Job Start Date Occupation Industry Not on file Not on file Not on file documented as of this encounter Plan of Treatment Not on file documented as of this encounter Visit Diagnoses Not on filedocumented in this encounter Care Teams Medical Laboratory Manager Relationship Specialty Start Date End Date Oral Long MD PCP - General Internal Medicine 07/09/13 11/01/17 Mirlande Dean MD [address] [place] [address] [id number] PCP - General Internal Medicine 11/02/17 documented as of this encounter
--- OUTSIDE RECORDS SUMMARY | 2024-11-05 12:55 | XMS_ITS | Encounter Summary ---
[facility] Address [address] [place] [address] Care Team Providers Care Rotary Driller Helper Name Role Phone Mirlande Dean MD Primary Care Provider [phone] Reason for Visit * Reason Onset Date Comments Error 02/09/2021 Encounter Details Date Type Department Care Team Description 02/09/2021 Refill Respiratory and Diabetes Medicaid/AC[employer] Pharmacist [address] [place] [address] Mirlande Dean MD [address] [place] [address] [id number] Error Social History Tobacco Use Types Packs/Day Years [...] have Coronavirus / COVID-19? No / Unsure 02/09/2021 12:34 PM EDT documented as of this encounter Plan of Treatment Not on file documented as of this encounter Visit Diagnoses Not on filedocumented in this encounter Care Teams Rotary Driller Helper Relationship Specialty Start Date End Date Mirlande Dean MD [address] [place] [phone] PCP - General Internal Medicine 11/02/17 documented as of this encounter
--- OUTSIDE RECORDS SUMMARY | 2024-11-05 12:55 | XMS_ITS | Encounter Summary ---
[facility] Address [address] [place] [address] Care Team Providers Care Connie Scratcher Name Role Phone Mirlande Dean MD Primary Care Provider [phone] Encounter Details Date Type Department Care Team Description 07/16/2023 Automobile Service Station Mechanic Report Medical Records [address] [place] [address] Willie Diaz Social History Tobacco Use Types [...] suspected to have Coronavirus/COVID-19? No / Unsure 07/04/2023 10:32 AM EST documented as of this encounter Plan of Treatment Not on file documented as of this encounter Visit Diagnoses Not on filedocumented in this encounter Care Teams Connie Scratcher Relationship Specialty Start Date End Date Mirlande Dean MD [address] [place] [address] PCP - General Internal Medicine 11/02/17 documented as of this encounter
--- OUTSIDE RECORDS SUMMARY | 2024-11-05 12:55 | XMS_ITS | Encounter Summary ---
Author Organization [facility] Address [address] [place] [address] Care Team Providers Care Senior Commissary Agent Name Role Phone Unavailable Primary Care Provider Unavailabl e Encounter Details Date Type Department Care Team (Late st Contact Info) Description 05/01/2017 Scanned Document [facility] at [address] [place] [address] Daniel Morgan [address] [address] Social History Tobacco Use Types [...]
--- OUTSIDE RECORDS SUMMARY | 2024-11-05 12:55 | XMS_ITS | Encounter Summary ---
Author Organization [facility] Address [address] [place] [address] Care Team Providers Care Perinatal Nurse Name Role Phone Mirlande Dean MD Primary Care Provider [phone] Encounter Details Date Type Department Care Team Description 09/27/2023 Refill Endocrinology - [address] [address] Mackenzie Hoffman PA-C [address] [place] [address] Social History Tobacco Use Types Packs/Day Years [...] encounter Miscellaneous Notes * Telephone Encounter - Gricel Moore M.A. - 09/27/2023 9:47 AM EST Malcolm 07/19/23 Ov 01/17/24 Lab Results Component Value Date HGBA1C 6.0 06/14/2023 MALBUR 54.9 10/20/2022 MALBCR 22.9 10/20/2022 CHOL 143 10/20/2022 LDL 77 10/20/2022 HDL 37 10/20/2022 TRIG 146 10/20/2022 GLU 120 07/19/2023 CREAT 1.05 06/14/2023 documented in this encounter Plan of Treatment Not on file documented as of this encounter Visit Diagnoses Diagnosis Type 2 diabetes mellitus with other specified complication, without long-term current use of insulin (HCC) documented in this encounter Care Teams Perinatal Nurse Relationship Specialty Start Date End Date Mirlande Dean MD [address] [place] [phone] PCP - General Internal Medicine 11/02/17 documented as of this encounter
--- OUTSIDE RECORDS SUMMARY | 2024-11-05 12:55 | XMS_ITS | Encounter Summary ---
Author Organization [facility] Address [address] [place] [address] Care Team Providers Care Finisher [employer] Name Role Paint MakerOral Long MD Primary Care Provider Unavailab Mirlande Menezes MD Primary Care Provider [phone] Encounter Details Date Type Department Care Team Description 01/23/2017 Orders Only Gastroenterology - [address] [address] Rahul Guzman MD Social History Tobacco Use Types Packs/Day [...] on filedocumented in this encounter Care Teams Finisher [employer] Relationship Specialty Start Date End Date Oral Long MD PCP - General Internal Medicine 07/09/13 11/01/17 Mirlande Dean MD [address] [place] [address] [phone] PCP - General Internal Medicine 11/02/17 documented as of this encounter
--- OUTSIDE RECORDS SUMMARY | 2024-11-05 12:55 | XMS_ITS | Encounter Summary ---
Author Organization [facility] Address [address] [place] [address] Care Team Providers Care Cook Syrup Maker Name Role Phone Unavailable Primary Care Provider Unavailabl e Encounter Details Date Type Department Care Team (Late st Contact Info) Description 05/01/2017 Scanned Document [facility] [place] at [address] [place] [address] Daniel Morgan [address] [address] Social History Tobacco Use Types [...]
--- OUTSIDE RECORDS SUMMARY | 2024-11-05 12:55 | XMS_ITS | Encounter Summary ---
Author Organization [facility] Address [address] [place] [address] Care Team Providers Care Health Commissioner Name Role Phone Mirlande Dean MD Primary Care Provider [phone] Reason for Visit * Reason Onset Date Comments dizziness 11/02/2017 Encounter Details Date Type Department Care Team Description 11/02/2017 Telephone Adult Medicine [address] [address] Oral Long MD dizziness Social History Tobacco Use Types Packs/Day Years [...] encounter Miscellaneous Notes * Telephone Encounter - Elza Mcgee Rn - 11/02/2017 11:42 AM EDT [facility] - Telephone Triage Documentation CHIEF COMPLAINT:spoke to pt , experiencing dizziness, was seen by at [facility], ,continues with symptoms, Offered appt in u/c on Sat pt agreed PCP: Mirlande Dean LMP/EDC: n/a Current Outpatient Prescriptions Medication Sig Dispense Refill ??? Albuterol Sulfate 108 (90 BASE) MCG/ACT AEROSOL POWDER,BREATH ACTIVATED Inhale 2 Puffs into thelungs 4 times daily. ??? Venlafaxine HCl 150 MG TABLET SR 24 HR Take by mouth. ??? tramadol (ULTRAM) 50 MG tablet Take 50 mg by mouth every 6 hours as needed. ??? aripiprazole (ABILIFY) 10 MG tablet Take 10 mg by mouth at bedtime. No current facility-administered medications for this visit. Allergies: Seasonal allergies Patient Active Problem List Diagnosis Code ??? Low back pain M54.5 ??? Bipolar disorder (HCC) F31.9 ??? Obesity (BMI 30.0-34.9) E66.9 ??? Fatty liver disease, nonalcoholic K76.0 ??? Hyperlipidemia E78.5 ??? Obstructive sleep apnea severe AHI 84 with sleep related hypoxia 25% of night G47.33 ??? Anxiety F41.9 DISPOSITION:Appointment given REFERENCE:nurse triage, CALLER UNDERSTANDS & AGREES WITH ADVICE:YES * Telephone Encounter - Raysa Ricci - 11/02/2017 11:30 AM EDT Symptoms patient is presenting: Pt has been experiencing dizziness when he sits down and gets up his head starts spinning. Pt feels nauseated and chills. Please advise pt. Pt denied any dizziness at this present time. If pain or injury related was it due to an accident at work or from a motor vehicle accident? NO If yes, gather 3rd constitution party insurance information Date of accident/Injury: N/A How long has patient had these symptoms?: For a few months PCP: Mirlande Dean Payor: [employer] FFS / Plan: [facility] / Product Type: MEDICAID RISK documented in this encounter Plan of Treatment Not on file documented as of this encounter Visit Diagnoses Not on filedocumented in this encounter Care Teams Health Commissioner Relationship Specialty Start Date End Date Mirlande Dean MD [address] [place] [address] PCP - General Internal Medicine 11/02/17 documented as of this encounter
--- OUTSIDE RECORDS SUMMARY | 2024-11-05 12:55 | XMS_ITS | Encounter Summary ---
Author Organization [facility] Address [address] [place] [address] Care Team Providers Care Warehouse Logistics Coordinator Name Role Phone Mirlande Dean MD Primary Care Provider [phone] Reason for Visit * Reason Onset Date Comments medication problems 07/25/2023 Encounter Details Date Type Department Care Team Description 07/25/2023 Telephone Endocrinology - [address] [address] Mackenzie Hoffman PA-C [address] [place] [address] medication problems Social History Tobacco Use Types Packs/Day Years [...] encounter Miscellaneous Notes * Telephone Encounter - Myra King M.A. - 07/25/2023 2:20 PM EST Spoke to patient. He will check around and let us know. * Telephone Encounter - Mackenzie Hoffman PA-C - 07/25/2023 2:19 PM EST I suggest patient check with other pharmacies that are not [facility] * Telephone Encounter - Emile Baker - 07/25/2023 1:58 PM EST Who is calling? A pharmacist: Pharmacy: [facility] Pharmacist Name: n/a Pharmacy Name of the medication Trulicity 3 MG What is the specific problem or interaction? Product back ordered If the patient is having a problem with taking the med - how long has the problem been going on? N/A documented in this encounter Plan of Treatment Not on file documented as of this encounter Visit Diagnoses Not on filedocumented in this encounter Care Teams Warehouse Logistics Coordinator Relationship Specialty Start Date End Date Mirlande Dean MD [address] [place] [address] PCP - General Internal Medicine 11/02/17 documented as of this encounter
--- OUTSIDE RECORDS SUMMARY | 2024-11-05 12:55 | XMS_ITS | Encounter Summary ---
Author Organization [facility] Address [address] [place] [address] Care Team Providers Care Shell Assembler Name Role Marketing RepresentativeOral Long MD Primary Care Provider Unavailab Mirlande Menezes MD Primary Care Provider [phone] Encounter Details Date Type Department Care Team Description 12/28/2015 Remote Operations Producer Report Medical Records [address] [place] [address] Feli Quevedo MD Social History Tobacco Use Types Packs/Day [...] on filedocumented in this encounter Care Teams Shell Assembler Relationship Specialty Start Date End Date Oral Long MD PCP - General Internal Medicine 07/09/13 11/01/17 Mirlande Dean MD [address] [place] [phone] PCP - General Internal Medicine 11/02/17 documented as of this encounter
--- OUTSIDE RECORDS SUMMARY | 2024-11-05 12:55 | XMS_ITS | Encounter Summary ---
Author Organization [facility] Address [address] [place] [address] Care Team Providers Care Leadership Program Associate Name Role Phone Mirlande Dean MD Primary Care Provider [phone] Reason for Visit * Reason Onset Date Comments Provider Call Back 01/26/2022 Encounter Details Date Type Department Care Team Description 01/26/2022 Telephone Pulmonology - [place] [address] [facility] [address] [place] [address] Melissa Llamas MD [address] [place] [address] Provider Call Back Social History Tobacco Use Types Packs/Day Years Used Date Smoking Tobacco: Every Day Cigarettes Smokeless Tobacco: Never Alcohol Use Standard Drinks/Week Comments Yes 0 (1 standard drink = 0.6 oz pur e alcohol) Rare Sex Assigned at Date Recorded Male 07/03/2023 9:[address] Job Start Date Occupation Industry Not on file Not on file Not on file documented as of this encounter Miscellaneous Notes * Telephone Encounter - Lilia Hollins M.A. - 01/30/2022 2:49 PM EDT Patient not link I will ask Abbie to request the compliance report * Telephone Encounter - Melissa Llamas MD - 01/26/2022 5:26 PM EDT Please get me a download- I also order a titration study * Telephone Encounter - Tiffany Vickers - 01/26/2022 11:58 AM EDT Patient called to schedule a follow up appt, scheduled for next available in March. Patient stateshe has been getting drowsy and would like to find out if he can get another sleep study. Please call to advise. documented in this encounter Plan of Treatment Scheduled Orders Name Type Priority Associated Diagnoses Orde r Schedule TREATMENT SLEEP STUDY-16 CHANNEL SLEEP STUDY STAT SAGE (obstructive sleep apnea) Expected: 01/26/2022, Expires: 01/26/2023 documented as of this encounter Visit Diagnoses Diagnosis SAGE (obstructive sleep apnea)- Primary Obstructive sleep apnea (adult) (pediatric) documented in this encounter Care Teams Leadership Program Associate Relationship Specialty Start Date End Date Mirlande Dean MD [address] [place] [phone] PCP - General Internal Medicine 11/02/17 documented as of this encounter
--- OUTSIDE RECORDS SUMMARY | 2024-11-05 12:55 | XMS_ITS | Encounter Summary ---
Author Organization [facility] Address [address] [place] [address] Care Team Providers Care Pathologist Name Role Phone Mirlande Dean MD Primary Care Provider [phone] Encounter Details Date Type Department Care Team Description 08/14/2023 Bridge Operator Slip Report Medical Records [address] [place] [address] Cyril Herrera Social History Tobacco Use Types Packs/Day Years [...] on filedocumented in this encounter Care Teams Pathologist Relationship Specialty Start Date End Date Mirlande Dean MD [address] [place] [phone] PCP - General Internal Medicine 11/02/17 documented as of this encounter
[2024-11-05 13:36] LABS: MANUAL DIFF FLAG NO
[2024-11-05 13:42] LABS: Basophils Percent Auto 0.3 % (0-2); Eosinophils Absolute Auto 0.1 X10*3/uL (0.0-0.4); Eosinophils Percent Auto 1.2 % (0-4); Hematocrit 42.4 % (42.0-52.0); Hemoglobin 14.1 g/dl (14.0-18.0); Imm Gran Abs Auto 0.02 X10*3/uL (0.00-0.03); Imm Gran Pct Auto 0.3 % (0.0-0.4); Lymphocytes Percent Auto 31.3 % (20-40); Mean Corpuscular HGB Conc 33.3 g/dl (31.0-36.0); Mean Corpuscular Hemoglobin 32.1 pg (27.0-33.0); Mean Corpuscular Volume 96.6 fL (80.0-98.0); Mean Platelet Volume 9.9 fL (9.4-12.4); Monocytes Absolute Auto 0.4 X10*3/uL (0.1-1.2); Neutrophils Absolute Auto 3.9 x10*3/uL (2.0-8.3); Neutrophils Percent Auto 60.9 % (45-73); Platelet Count 325 X10*3/uL (160-400); Red Blood Count 4.39 X10*6/uL (4.60-5.80); White Blood Count 6.5 X10*3/uL (4.8-10.8)
[2024-11-05 14:24] LABS: Alanine Aminotransferase 22 U/L (0-40); Alkaline Phosphatase 64 U/L (39-117); Anion Gap 11 (12-20); Aspartate Amino Transferase 33 U/L (5-37); Bilirubin Total 0.3 mg/dL (0.0-1.0); Blood Urea Nitrogen 17 mg/dL (9-16); C Reactive Protein 0.17 mg/dL (< or = 0.50); Carbon Dioxide 26 mmol/L (22-29); Chloride 107 mmol/L (96-108); Estimated Glomerular Filt Rate > 60; Glucose Random 126 mg/dL (60-115); Sodium 140 mmol/L (135-145); Total Protein 8.2 g/dL (6.5-8.0)
[2024-11-05 14:48] LABS: Erythrocyte Sedimentation Rate 13 MM/HR (0-15)
== END 2024-11-05 10:47 | disposition home or self-care (01) ==
LOC: HO.HMGCLDS 10:46
PROVIDERS: PCP Internal Medicine; Visit Provider Student in an Organized Health Care Education/Training Program
DX: L40.50 Arthropathic psoriasis, unspecified (principal); Z79.631 Long term (current) use of antimetabolite agent
CPT/HCPCS: 36415; 80053; 85025; 85652; 86140

== ENCOUNTER 2024-12-11 13:44 | Outpatient (AMB) | payer MEDICARE, MEDICAID, SELFPAY ==
[2024-12-11 13:47] VITALS: BP 120/68; PULSE 87; O2SAT 99; BMI 33.6
--- NOTE | 2024-12-11 13:47 | A.OFFVIS_ITS ---
Vital Signs 12/11/24 13:47 Height 5 ft 6 in Weight 207 lb 14.334 oz BMI 33.6 BP 120/68 Blood Pressure Location Lt brachial Position Sitting Pulse 87 Pulse Source Pulse Oximeter Pulse Oximetry (%) 99 Oxygen Delivery Method Room Air Intake Visit Reasons: PsA Intake Note: Patient last seen by Doctor Yvette Rosario on 08/19/24. Presents today for PsA follow up and test results. Allergies Seasonal Allergies Allergy (Unknown, Verified 12/11/24 13:49) Unknown Medication List - Last Reconciled 12/11/24 by Bernice Jones MD acetaminophen ER (Tylenol Arthritis Pain) 650 mg PO Q8H PRN albuterol sulfate 90 mcg/actuation (ProAir HFA) 2 puffs inhalation Q6H PRN aripiprazole 20 mg PO BEDTIME atorvastatin 20 mg PO DAILY dextroamphetamine-amphetamine 15 mg (Adderall) 15 mg PO DAILY dulaglutide (Trulicity) 1.5 mg subcut QWEEK fenofibrate 54 mg PO DAILY fluticasone propionate 50 mcg/actuation 1 spray intranasal DAILY folic acid 1 mg PO DAILY Humira(CF) Pen (adalimumab) 40 mg (0.4 mL) subcut Q2W NS ibuprofen 800 mg PO Q12H PRN insulin glargine (Lantus Solostar U-100 Insulin) 20 units subcut BEDTIME loratadine 10 mg PO DAILY methotrexate sodium 12.5 mg (5 x 2.5 mg) PO QWEEK trazodone 50 mg PO BEDTIME HPI Comments Details: Patient is a 44-year-old male with diabetes, hyperlipidemia, bilateral cubital tunnel syndrome status post left cubital tunnel release, history of hepatitis-B infection and psoriatic arthritis here today for follow up Interval History: Patient last seen 08/19/[address] Rosario. At that time he was on Humira 40 mg every other week and methotrexate 15 mg weekly as well as folic acid. He was doing reasonably well on that medication but gets intermittent episodes of throbbing pain in his fingers without any joint swelling. He had a left cubital tunnel release 01/2024 with improvement of the numbness and tingling of his left hand. Also has right cubital tunnel syndrome but not interested in surgery for this at this time. Today, Patient reports no new symptoms or changes since that visit Intermittent AM stiffness lasting about 10 mins No PsO rash Rheumatologic History: PsA dx 09/11 MTX started 09/11 Humira added 11/09 effective Initial history: This is 42-year-old male with past medical history of hypertension, dyslipidemia, type 2 diabetes mellitus, fatty liver, anxiety, bipolar disorder who presents for evaluation of diffuse joint pain. The condition started 3-4 months ago with pain swelling and stiffness of his hands, wrists, elbows & toes. He also has triggering of his index finger. He was evaluated by Orthopedic surgery and found to have significantly elevated inflammatory markers. He was started on a prednisone taper with dramatic improvement of his symptoms however his blood sugar was significantly elevated. Patient currently takes Motrin 800 mg Twice daily with little relief. He states he was diagnosed with psoriasis since he was a child. Usually effects the skin behind his ears and his nails. There is no history suggestive of uveitis or inflammatory bowel disease. Patient has had back pain many years ago since after injury to the back. He had lumbar spine surgery many years ago. He is following up with [facility] and waiting to do an injection in his back. Current Rheumatology Medication(s): Humira 40mg SC every other week Methotrexate 15mg weekly Folic acid 1mg daily PFS Medical History Hepatitis B Recurrent erosion of cornea, right eye Psoriasis Hyperlipidemia Anxiety Bipolar 1 disorder Low back pain Fatty liver Obesity SAGE (obstructive sleep apnea) Hypertriglyceridemia Diabetes Surgical History History of back surgery History of lumbar fusion Family History Mother Diverticulosis Fibromyalgia Arthritis Thyroid disease Family/Other Lupus Social History Household Members: Significant Other and Children Alcohol intake: current Alcohol intake frequency: holidays/special occasions only Patient Tobacco Use Status: Current everyday Tobacco user Tobacco use type: Smokeless Tobacco Cigarettes Per Day: 6 Current occupational status: unemployed Current occupation: right hand dominant Review of Systems Const Details: Review of Systems Constitutional: Denies fever, chills, weight loss ENT: Denies vision changes, eye pain or eye redness, dental caries, dry mouth GI: Denies nausea, vomiting, diarrhea, abdominal pain, change in BM Pulm: Denies SOB, [place], hemoptysis, wheezing Cards: Denies chest pain, palpitations Skin: Denies Raynaud's, rash, nail changes, photosensitivity, DRY HEAT CABINET ATTENDANT: Denies headaches, weakness, paresthesias, recurrent falls MSK: as per HPI All other systems reviewed and are unremarkable except noted above Physical Exam Vital Signs: BMI result Body Mass Index 33.6 Vital signs reviewed Physical Examination CONSTITUITIONAL Patient alert and cooperative. Well appearing and in no apparent painful distress HEENT Conjunctiva and sclera clear. ?Pupils equal round and reactive to light. ?No lymphadenopathy. ? CHEST/RESPIRATORY SYSTEM Normal respiratory effort and able to speak in complete sentences. ?Clear to auscultation bilaterally. ?No crackles, rales, rhonchi, wheezes heard. CARDIAC SYSTEM Regular rate and rhythm. ?S1 and S2 heard no murmurs. ?Radial pulses intact bilaterally MSK Hands: ?Able to make a fist. No synovitis noted to the MCPs, PIPs or DIPs. ?Mild tenderness to palpation of the PIPs. No deformities noted. ? Wrists: ?Full range of motion at the wrists without pain. ?No tenderness to palpation or synovitis noted to the wrists. Elbows: Full range of motion without pain. No tenderness, weakness, swelling, increased warmth or erythema. Shoulders: Full range of active range of motion without pain. No tenderness, weakness, swelling, increased warmth or erythema. Knees: ?Full range of motion. ?No tenderness, swelling, increased warmth or erythema.?No effusion or crepitations Ankles: Full range of motion. ?No tenderness, swelling, increased warmth or erythema.? Feet: ?Negative squeeze test. ?No tenderness to palpation or swelling of the MTPs. Bilateral heel tenderness to palpation Tender points:?No tenderness to palpation of the bilateral trapezius, supraspinatus, greater trochanters, anterior costochondral junctions, bilateral gluteal areas, bilateral suboccipital muscle insertions SKIN Skin intact without rashes. Results Reviewed Results Reviewed: Laboratory Tests 11/05/24 11:02 WBC 6.5 RBC 4.39 L Hgb 14.1 Hct 42.4 Plt Count 325 ESR 13 Sodium 140 Potassium 4.0 Chloride 107 Carbon Dioxide 26 BUN 17 H Creatinine 0.98 Calcium 9.0 Total Bilirubin 0.3 AST 33 ALT 22 Alkaline Phosphatase 64 C-Reactive Protein 0.17 Immunology labs 08/02/22 11:41 Cycl Citrul Peptide IgG <16 HLA-B27 Negative Infectious serologies 01/10/24 13:44 Hepatitis A IgM Ab Nonreactive Hep Bs Antigen Negative Hep Bs Antibody NONREACTIVE Hep B Core Total Ab Nonreactive Hep B DNA copies/mL NOT DETECTED Hep B DNA (IU/mL) NOT DETECTED Hepatitis C Ab (EIA) Nonreactive TB Test (T-Spot) Com Negative Assessment & Plan Assessment & Plan (1) Psoriatic arthritis: Comment: PsA dx 09/11 MTX started 09/11 Humira added 11/09 effective Code(s): L40.50 - Arthropathic psoriasis, unspecified Category: Medical Plan: #PsA Patient is a 44-year-old male with psoriatic arthritis here today for follow up. Diseases currently in remission on Humira and methotrexate. Has some residual PIP tenderness to palpation we will try topical diclofenac to see if this helps Plan - Humira 40mg SC every other week - Methotrexate 12.5mg PO every week - Topical diclofenac 1% apply to bilateral hands 4 times a day - Hold ibuprofen for now - RTC 4 months - Labs before visit: CBC, CMP, ESR, CRP, hepatitis panel, T spot (2) Plantar fasciitis, bilateral: Code(s): M72.2 - Plantar fascial fibromatosis Plan: #Bilateral plantar fasciitis Patient with bilateral heel pain and tenderness to palpation concerning for bilateral plantar fasciitis. Stretches given to patient. At review in 4 months if no improvement we can consider steroid injection Plan - Stretches given - Consider bilateral steroid injection in 4 months if no improvement (3) Methotrexate, termite exterminator helper, current use: Code(s): Z79.631 - exterminator helper (current) use of antimetabolite agent Category: Medical Plan: #Long-term Current Use of Methotrexate Discussed with patient the benefits and risks of methotrexate for managing their rheumatic condition Benefits include reduced pain, reduced mortality, maintenance of remission and reduction of flares Risks include oral ulcers, photosensitivity, hepatotoxicity, hematologic toxicity, pneumonitis, flu-like symptoms (especially day after administration), nodulosis, lymphomas ? Limit alcohol and avoid Bactrim ? Monitoring: ?CBC, BMP, LFTs every 3-4 months and hepatitis serologies as needed (4) Encounter for monitoring of adalimumab therapy: Code(s): Z51.81 - Encounter for therapeutic drug level monitoring; Z79.620 - half-way (current) use of immunosuppressive biologic Plan: #Long-term Use of TNF Inhibitors: Humira Discussed with the patient the benefits and risks of TNF inhibitors for the management of the rheumatic condition Benefits include reduce pain, maintenance of remission and reduction of flares as well as ?progression of the disease Risks include injection sites/infusion reactions, serious infections (such as bacterial infections, opportunistic infections), malignancy, delaminating synd romes, autoimmune phenomena, CHF exacerbations, palmar plantar psoriasis and cytopenias Recommended rotating injection sites, and holding medication during and for up to 1 week after resolution of a febrile illness or open skin wound Plan I spent 30 minutes reviewing the record and labs, taking a history, examining the patient, discussing the treatment plan, ordering diagnostic work up and documenting in the medical record Orders: Orders Complete Blood Count Auto Diff 4 Months L40.50 - Arthropathic psoriasis, unspecified Erythrocyte Sedimentation Rate 4 Months L40.50 - Arthropathic psoriasis, unspecified Comprehensive Met. Panel 4 Months L40.50 - Arthropathic psoriasis, unspecified C Reactive Protein 4 Months L40.50 - Arthropathic psoriasis, unspecified Hepatitis A,B,C Profile 4 Months L40.50 - Arthropathic psoriasis, unspecified T Spot TB 4 Months L40.50 - Arthropathic psoriasis, unspecified Medications: New diclofenac sodium 1% apply to bilateral hands 4 times a day 4 grams topical QID 100 grams 6RF M19.041 - Primary osteoarthritis, right hand, M19.042 - Primary osteoarthritis, left hand Changed From methotrexate sodium 12.5 mg (5 x 2.5 mg) PO QWEEK 80 tabs 0RF L40.50 - Arthropathic psoriasis, unspecified To methotrexate sodium 12.5 mg (5 x 2.5 mg) PO QWEEK 90 days 65 tabs 1RF L40.50 - Arthropathic psoriasis, unspecified Refilled folic acid 1 mg PO DAILY 90 tabs 1RF Humira(CF) Pen (adalimumab) 40 mg (0.4 mL) subcut Q2W 2 ea 4RF NS L40.50 - Arthropathic psoriasis, unspecified Coding Level of Care Code Est Pt Level 4 (22039) Complex EM visit Add On G2211 Diagnoses Psoriatic arthritis L40.50 Plantar fasciitis, bilateral M72.2 Methotrexate, skilled nursing, current use Z79.631 Encounter for monitoring of adalimumab therapy Z51.81; Z79.620
--- OUTSIDE RECORDS SUMMARY | 2024-12-11 16:07 | XMS_ITS | Encounter Summary ---
Author Organization [facility] Address [address] [place] [address] Care Team Providers Care Ui Software Developer Name Role Phone Unavailable Primary Care Provider Unavailabl e Encounter Details Date Type Department Care Team (Late st Contact Info) Description 05/01/2017 Scanned Document [facility] at [address] [place] [address] Daniel Morgan, [address] [id number] Social History Tobacco Use Types Packs/Day Years Used Date Smoking Tobacco: Never Assessed Sex and Gender Information Value Date Recorded Sex Assigned at Not on file Legal Sex Male 6:47 PM EDT Gender Identity Not on file Sexual Orientation Not on file documented as of this encounter Plan of Treatment Not on file documented as of this encounter Visit Diagnoses Not on filedocumented in this encounter
--- OUTSIDE RECORDS SUMMARY | 2024-12-11 16:07 | XMS_ITS | Clinical Summary ---
Author Organization [facility] Address [address] [place] [address] Care Team Providers Care Public Safety Dispatcher Name Role Phone Unavailable Primary Care Provider [...]
--- OUTSIDE RECORDS SUMMARY | 2024-12-11 16:07 | XMS_ITS | Clinical Summary ---
Author Organization [facility] [address] [facility] Address [address] [place] [address] Phone Care Team Providers Care Power Line Lineman Name Role Phone Mirlande Dean MD Primary Care Provider [phone] Allergies Active Allergy Reactions Criticality Noted Date Comments Other 03/28/2017 Seasonal Allergies Medications dulaglutide (Trulicity) 1.5 mg/0.5 mL pen injector injection Inject 1.5 mg into the skin every 7 days. 01/17/20 24 Active amphetamine-de xtroamphetamin e (ADDERALL) 15 mg tablet Take 1 tablet (15 mg total) by mouth 1 (one) time each day. Active pen needle, diabetic 32 gauge x 5/32 needle USE ONE DAILY WITH VICTOZA. 07/04/20 23 Active adalimumab (Humira,CF, Pen) 40 mg/0.4 mL pen every 14 days. 12/29/19 23 Active methotrexate 2.5 mg tablet TAKE 6 TABLETS BY MOUTH EVERY WEEK 12/27/19 23 Active traZODone (DESYREL) 50 mg tablet Take 2 tablets (100 mg total) by mouth 1 (one) time each day in the evening. 01/10/20 23 Active blood sugar diagnostic (FreeStyle Lite Strips) test strip Use to test blood sugar once daily 01/09/20 23 Active folic acid (FOLVITE) 1 mg tablet Take 1 tablet (1,000 mcg total) by mouth 1 (one) time each day. 08/25/19 23 Active blood-glucose meter (BLOOD GLUCOSE MONITORING [facility]) Use to test blood sugars once daily 06/14/20 Active FREESTYLE LANCETS [facility] Use to test blood sugars once daily 06/13/20 Active fenofibrate (TRICOR) 145 mg tablet Take 145 mg by mouth daily. 03/13/20 Active ARIPiprazole (ABILIFY) 10 mg tablet Take 2 tablets (20 mg total) by mouth at bedtime. Active hydrOXYzine pamoate (VISTARIL) 25 mg capsule Take 1 capsule (25 mg total) by mouth 3 (three) times a day if needed for anxiety. 12/25/19 24 Active insulin glargine (Lantus Solostar U-100 Insulin) 100 unit/mL (3 mL) injection pen Inject 20 Units into the skin at bedtime. 15 mL 5 07/22/20 24 Active atorvastatin (LIPITOR) 40 mg tablet Take 1 tablet (40 mg total) by mouth 1 (one) time each day. 30 each 11 07/29/20 24 025 Active fluticasone propionate (FLONASE) 50 mcg/actuation nasal spray SPRAY 2 SPRAYS BY NASAL ROUTE DAILY 48 mL 1 12/04/19 25 Active meclizine (ANTIVERT) 12.5 mg tablet TAKE 1 TABLET BY MOUTH DAILY NEEDED FOR DIZZINESS 30 tablet 1 12/04/19 25 Active meclizine (ANTIVERT) 12.5 mg tablet Take 1 Tablet by mouth daily as needed (dizziness). 01/22/20 24 025 Discontinued fluticasone propionate (FLONASE) 50 mcg/actuation nasal spray 2 Sprays by Nasal route daily. 12/18/19 24 025 Discontinued Active Problems Problem Noted Date Diagnosed Date Psoriatic arthritis ([facility] V24, [facility] V28) 0 01/01/2024 Overview (06/05/2024): On multiple agents followed by rheumatology. Type 2 diabetes mellitus ([facility] V24, [facility] V 28) 05/18/2020 Hypertriglyceridemia 05/08/2019 Obstructive sleep apnea 06/27/2017 Overview (06/05/2024): [facility] Home Polysomnogram: Date 06/25/2017; AHI 84, Unclassified apneas 0; Obstructive apneas 460; Central apneas 1; Mixed apneas 2; hypopneas 153; average oxygen saturation 91% (lowest 65% with saturations <88% for 5% or more of study) Hyperlipidemia 03/28/2017 Fatty liver disease, nonalcoholic 01/01/2017 Overview (06/05/2024): Dr. Guzman Obesity (BMI 30.0-34.9) 01/01/2017 Anxiety 07/23/2013 Bipolar disorder ([facility] V24, [facility] V28) 11/2012 Overview (06/05/2024): Psychiatrist - Dr. Son Low back pain 07/23/2013 Overview (06/05/2024): Dr. Triana - in [place]; fusion of L4-L5 Encounters Date Type Department Care Team Description [facility] [address] [phone] Melissa Llamas MD durable medical equipment 11/28[facility] [address] [phone] Melissa Llamas MD durable medical equipment 11/04/2024 10:00 AM EDT Consult Adult Medicine [address] [phone] Mirlande Dean MD Preop cardiovascular exam (Primary Dx); Fatty liver disease, nonalcoholic; Bipolar affective disorder, remission status unspecified ([facility] V24, [facility] V28); Obesity (BMI 30.0-34.9); Type 2 diabetes mellitus without complication, without long-term current use of insulin ([facility] V24, [facility] V28); ASGE (obstructive sleep apnea); Hyperlipidemia, unspecified hyperlipidemia type; Psoriatic arthritis ([facility] V24, [facility] V28) 11/03/2024 Telephone Adult Medicine [address] [phone] Mirlande Dean MD Pre-op Visit 10/23/2024 Telephone Endocrinology - [place] [address] [place] [address] Mackenzie Hoffman PA Labs Only from Last [...] pain ; COMMENT: Dr. Triana - in [place]; fusion of L4-L5 Anxiety 07/23/2013 DX:Anxiety Fatty liver disease, nonalcoholic 01/01/2017 DX:Fatty liver disease, nonalcoholic Bipolar disorder ([facility] V2 4, [facility] V28) 07/23/2013 DX:Bipolar disorder ([facility]); COMMENT: Psychiatrist - Dr. Son Hyperlipidemia 03/28/2017 DX:Hyperlipidemi a Obesity (BMI 30.0-34.9) 01/01/2017 DX:Obesi ty (BMI 30.0-34.9) Obstructive sleep apnea 06/27/2017 DX:Obstr uctive sleep apnea; COMMENT: [facility] Home Polysomnogram: Date 06/25/2017; AHI 84, Unclassified [...] for your loved ones. For example, child welfare worker or elderly care for an older adult? [...] 01/20/2025 3:30 PM EDT Office Visit Endocrinology [facility] [address] [place] [address] Mackenzie Hoffman PA [address] [place] [address] 06/15/2025 3:30 PM EDT Office Visit Pulmonolgy [facility] [address] [phone] Melissa Llamas MD [address] [address] Health Maintenance Due Date Last Done Comments [...] age to complete this topic Meningococcal B Vaccine Aged Out No l onger eligible based on patient's age to complete this topic RSV Immunization Patients Under 20 months Aged Out No longer eligible based on patient's age to complete this topic Varicella Vaccines Aged Out No longer eligible based on patient's age to complete this topic Procedures Procedure Name Priority Date/Time Associated Diagnosis Comments EXTERNAL CLINICAL LAB 11/05/2024 ECG 12-LEAD Routine 11/04/2024 1:16 PM EDT Preop cardiovascular exam COMPREHENSIVE METABOLIC PANEL Routine 11/04/2024 11:28 AM EDT Fatty liver disease, nonalcoholic Preop cardiovascular exam PROTHROMBIN TIME WITH INR Routine 11/04/2024 11:28 AM EDT Fatty liver disease, nonalcoholic Preop cardiovascular exam HEMOGLOBIN A1C Routine 10/24/2024 12:30 PM EST Type 2 diabetes mellitus with other specified complication, unspecified whether penitentiary insulin use (CMS/HCC V24, CMS/[facility] V28) MICROALBUMIN CREATININE URINE RATIO Routine 07/25/2024 12:11 PM EST Type 2 diabetes mellitus with other specified complication, unspecified whether terminal press operator insulin use (CMS/HCC V24, [facility] V28) LIPID PANEL WITH REFLEX TO DIRECT LDL Routine 07/25/2024 12:11 PM EST Type 2 diabetes mellitus with other specified complication, unspecified whether penitentiary insulin use (CMS/HCC V24, CMS/HCC V28) HEPATITIS C SCREENING Routine 06/14/2023 HIV SCREENING Routine 06/14/2023 from Last 3 Months or Most Recently Relevant to Health Maintenance Results * External clinical lab (11/05/2024) us Provider [facility] LAB BLOOD ORDERABLES Fin al Result * ECG 12 lead (11/04/2024 1:16 PM EDT) Narrative Dean, Zhongmo, MD - 11/04/2024 1:16 PM EDT EKG today in my office showed a normal sinus rhythm, some baseline issues and a nonspecific ST-T changes. us Mirlande Dean MD ECG ORDERABLES Final Result * Prothrombin time with INR (11/04/2024 11:28 AM EDT) Protime 10.9 10.6 - 13.9 sec LAB COAGULATION METHOD 11/04/2024 2:31 PM EDT [facility] INR 0.9 LAB COAGULATION METHOD 11/04/2024 2:31 PM EDT [facility] Blood Venous blood specimen / Unknown Venipuncture / Unknown 11/04/2024 11:28 AM EDT 11/04/2024 11:28 AM EDT Mirlande Dean MD LAB BLOOD ORDERABLES Final Resul t [facility] [address] [place] [address], [place] [phone] * (ABNORMAL) Comprehensive metabolic panel (11/04/2024 11:28 AM EDT) Sodium 140 133 - 145 mmol/L LAB CHEMISTRY METHOD 11/04/2024 3:34 PM EDT [facility] Potassium 3.9 3.5 - 5.5 mmol/L LAB CHEMISTRY METHOD 11/04/2024 3:34 PM EDT [facility] Chloride 105 96 - 110 mmol/L LAB CHEMISTRY METHOD 11/04/2024 3:34 PM EDT [facility] CO2 27 21 - 32 mmol/L LAB CHEMISTRY METHOD 11/04/2024 3:34 PM EDT [facility] Anion Gap 8 3 - 11 LAB CHEMISTRY METHOD 11/04/2024 3:34 PM EDT [facility] Glucose 131(H) 70 - 100 mg/dL LAB CHEMISTRY METHOD 11/04/2024 3:34 PM [facility] BUN 17 5 - 25 mg/dL LAB CHEMISTRY METHOD 11/04/2024 3:34 PM [facility] Creatinine 0.96 0.70 - 1.30 mg/dL LAB CHEMISTRY METHOD 11/04/2024 3:34 PM [facility] eGFR 99 >=60 mL/min/1. 73m2 LAB CHEMISTRY METHOD 11/04/2024 3:34 PM [facility] Comment:Calculation based on the??Chronic Kidney Disease Epidemiology Collaboration (CKD-EPI) equation refit??without adjustment for race. BUN/Creatinine Ratio 17.7 LAB CHEMISTRY METHOD 11/04/2024 3:34 PM [facility] Calcium 9.3 8.5 - 10.5 mg/dL LAB CHEMISTRY METHOD 11/04/2024 3:34 PM [facility] AST (SGOT) 16 10 - 42 unit/L LAB CHEMISTRY METHOD 11/04/2024 3:34 PM [facility] ALT (SGPT) 27 10 - 60 unit/L LAB CHEMISTRY METHOD 11/04/2024 3:34 PM [facility] Alkaline Phosphatase 96 42 - 121 unit/L LAB CHEMISTRY METHOD 11/04/2024 3:34 PM [facility] Total Protein 7.8 6.0 - 8.0 g/dL LAB CHEMISTRY METHOD 11/04/2024 3:34 PM [facility] Albumin 3.8 3.2 - 5.0 g/dL LAB CHEMISTRY METHOD 11/04/2024 3:34 PM [facility] Total Bilirubin 0.3 0.0 - 1.4 mg/dL LAB CHEMISTRY METHOD 11/04/2024 3:34 PM [facility] Blood Venous blood specimen / Unknown Venipuncture / Unknown 11/04/2024 11:28 AM EDT 11/04/2024 11:28 AM EDT Mirlande Dean MD LAB BLOOD ORDERABLES Final Resul t Performing Organization Address [facility]/ZIP Co de Phone Number [facility] [address] [place] [address], [place] [phone] * Hemoglobin A1c (10/24/2024 12:30 PM EST) Pathologist [facility] Hemoglobin A1C 5.8 <6.5 % LAB CHEMISTRY METHOD 10/24/2024 10:06 PM EST [facility] Mean Bld Glu Estim. 120 mg/dL LAB CHEMISTRY METHOD 10/24/2024 10:06 PM [facility] Blood Venous blood specimen / Unknown Venipuncture / Unknown 10/24/2024 12:30 PM EST 10/24/2024 12:30 PM EST Mackenzie ROBERTSON LAB BLOOD ORDERABLES Final Result Performing Organization Address [facility]/ZIP Co de Phone Number [facility] [address] [place] [address], [place] [phone] * (ABNORMAL) Lipid panel with reflex to direct LDL (07/25/2024 12:11 PM EST) Cholesterol 215(H) 0 - 200 mg/dL LAB CHEMISTRY METHOD 07/25/2024 3:12 PM EST [facility] Triglycerides 148 0 - 150 mg/dL LAB CHEMISTRY METHOD 07/25/2024 3:12 PM EST [facility] HDL 54 >=40 mg/dL LAB CHEMISTRY METHOD 07/25/2024 3:12 PM EST [facility] LDL Calculated 131(H) 0 - 100 mg/dL LAB CHEMISTRY METHOD 07/25/2024 3:12 PM EST [facility] VLDL Cholesterol Dimas 29.6 mg/dL LAB CHEMISTRY METHOD 07/25/2024 3:12 PM EST [facility] Non HDL Chol. (LDL+VLDL) 161(H) <145 mg/dL LAB CHEMISTRY METHOD 07/25/2024 3:12 PM EST [facility] Chol/HDL Ratio 4.0 0.0 - 4.4 LAB CHEMISTRY METHOD 07/25/2024 3:12 PM EST [facility] Blood Venous blood specimen / Unknown Venipuncture / Unknown 07/25/2024 12:11 PM EST 07/25/2024 12:11 PM EST Mackenzie ROBERTSON LAB BLOOD ORDERABLES Final Result Performing Organization Address City/[facility]/ZIP Co de Phone Number [facility] [address] [place] [address], [place] [phone] * Microalbumin creatinine urine ratio (07/25/2024 12:11 PM EST) Creatinine, Urine 210.0 mg/dL LAB CHEMISTRY METHOD 07/25/2024 3:38 PM [facility] Microalb, Ur 13.7 0.0 - 29.0 mg/L LAB CHEMISTRY METHOD 07/25/2024 3:38 PM [facility] Microalb/Creat Ratio 7 <30 mg/g creat LAB CHEMISTRY METHOD 07/25/2024 3:38 PM [facility] Urine Urine specimen from urethra / Unknown Non-blood Collection / Unknown 07/25/2024 12:11 PM EST 07/25/2024 12:11 PM EST Mackenzie ROBERTSON LAB URINE ORDERABLES Final Result Performing Organization Address [facility]/ZIP Co de Phone Number [facility] [address] [place] [address], [place] [phone] * Hm HIV Screening (06/14/2023) HIV Screening abstracted Historical Provider HEALTH MAINTENANCE Final Result * Hepatitis C Screening (06/14/2023) Hepatitis C Screening abstracted us Historical Provider HEALTH MAINTENANCE Final Result from Last 3 Months or Most Recently Relevant to Health Maintenance Insurance MEDICAID - [place] MEDICARE Care Teams Power Line Lineman Relationship Specialty Start Date End Date Mirlande Dean MD [address] [place] [address] PCP - General Internal Medicine 11/02/17
--- OUTSIDE RECORDS SUMMARY | 2024-12-11 16:07 | XMS_ITS | Clinical Summary ---
Author Organization [facility] Address [address] [place] [address] Care Team Providers Care Network Engineering Advisor Name Role Phone Unavailable Primary Care Provider [...]
--- OUTSIDE RECORDS SUMMARY | 2024-12-11 16:07 | XMS_ITS | Encounter Summary ---
Author Organization [facility] Address [address] [place] [address] Care Team Providers Care Admissions Evaluator Name Role Phone Unavailable Primary Care Provider Unavailabl e Encounter Details Date Type Department Care Team (Late st Contact Info) Description 05/01/2017 Scanned Document [facility] [place] at [address] [place] [address] Daniel Morgan, [address] [phone] Social History Tobacco Use Types Packs/Day Years [...]
--- OUTSIDE RECORDS SUMMARY | 2024-12-11 16:07 | XMS_ITS | Encounter Summary ---
Author Organization [facility] Address [address] [place] [address] Care Team Providers Care Butter Fat Tester Name Role Phone Unavailable Primary Care Provider Unavailabl e Encounter Details Date Type Department Care Team (Late st Contact Info) Description 05/01/2017 Scanned Document [facility] [place] at [address] [place] [address] Daniel Morgan, [address] [phone] Social History Tobacco Use Types Packs/Day Years [...]
--- OUTSIDE RECORDS SUMMARY | 2024-12-11 16:07 | XMS_ITS | Data Portability ---
Author Organization [facility] Address [address] [place] [address] Care Team Providers Care Farm Product Purchaser Name Role Phone [facility] Prim julia Care Provider Assessment No assessment recorded. Plan of Treatment Reminders Order Date Submit Date Provider Last Modified By Organization Details Last Modified Time Details Appointments None recorded. Lab rapid strep group A, throat 2022 023 [email or web address] [id number], [address] [place] [address], [phone], 3 16:03:23 Referral None recorded. Procedures None recorded. Surgeries None recorded. Imaging None recorded. Medication Orders Florastor 250 mg capsule 2022 023 [id number] [address] [place], [address], 3 16:03:23 ibuprofen 800 mg tablet 2022 023 [id number], [address] [facility] [place], [address], 3 16:03:22 cephalexin 500 mg capsule 2022 023 [id number], [address] [place], [address], 3 17:47:11 Allergy Relief (fluticason e) 50 mcg/actuati on nasal spray,suspe nsion 2021 022 [facility]armacy #[id number], [address] [facility] [place], [address], 18:26:34 loratadine 10 mg tablet [address]/Pharmacy #[id number], [address] [place], [address], 15:43:49 Ciloxan 0.3 % eye drops [address]/Pharmacy #[id number], [address] [place], [address], 15:41:35 Patient TargetsNo targets recorded. Patient Instructions Encounter Date Encounter Id Patient Instructions Last Modified By Organization Details Last Modified Time 07/23/2022 [id number] eustachian tube problems: care instructions [email or web address] Not available 07/23/2022 18:26:30 Based on your [...] contact us with any questions or concerns. [email or web address] Not available 07/23/2022 18:25:58 05/16/2023 [id number] sore throat: car e instructions [email or web address] Not available 05/16/2023 16:03:20 Based on your [...] if you have any questions or concerns. [email or web address] Not available 05/16/2023 16:04:52 Patient will ret urn on Sunday if no improvement. Pt agrees with plan Not available 05/16/2023 16:08:08 Reason for Referral None Reported. Results Created Date Observation Date Name Description Value Unit Range Abnormal Flag Note LastModifiedBy Organization Detail LastModifiedTime 05/16/20 23 05/16/2023 rapid strep group A, throa t Unknown Analyte positi ve Not Available [address] [place], [address], 05/16/2023 15:45:19 05/16/20 23 05/16/2023 rapid strep group A, throa t Unknown Analyte yes Not Available [id number] [facility] [address] [place], [address], 05/16/2023 15:45:19 Result Notes None recorded. Problems Name Problem SNOMED Code Status Onset Date Resolution Date Notes Provider Name and Address Organization Details Recorded Time Hypercholester olemia 74833712 Active 2022 JAMILA BABB null, [place] - [facility] 3 15:44:40 Anxiety 77376930 Active 2022 JAMILA BABB null, [place] - [facility] 3 15:44:54 Diabetes mellitus 24283759 Active CIERA CHAD CARRIZALES null, [place] - [facility] 2 17:57:10 Chronic back pain 535307874 Active ORCHARD CHAD CARRIZALES null, PA - [facility] [...] Updated DateTime 3 167.64 cm 33.6 kg/m2 12603.2 1 g 18 /min 97.5 [degF] 98 % 98 % 82 /min 107 mm[Hg] 70 mm[Hg] JAMILA ROBERTSON - [facility] 3 15:47:56 Date Recorded Body height Body mass index (BMI) Body weight Pain severity - 0-10 verbal numeric rating [Score] - Reported Respiratory rate Oxygen saturation Oxygen saturation in Arterial blood by Pulse oximetry Heart rate Body temperature Systolic blood pressure Diastolic blood pressure Provider Name and Address Organization Details Last Updated DateTime 2 167.64 cm 33.9 kg/m2 89955.4 g 0 18 /min 98 % 98 % 95 /min 98.3 [degF] 130 mm[Hg] 76 mm[Hg] CIERA ROBERTSON - [facility] 2 18:01:01 Social History Question Answer Notes [...] SNOMED-CT Code Diagnosis ICD10 Code Diagnosis Note [id number] MARCELO BILLY [address] [phone] 07/23/2022 17:01:57 07/23/2022 18:29:23 Acute conjunctivitis of right eye 7944851071 76294 H10.31 Dysfunctio n of right eustachian tube 2320362796 840853 H69.91 [id number] MARCELO CENTENO [address] [place] [address] 05/16/2023 14:42:40 05/16/2023 16:05:34 Sore throat 199308075 J02.9 Acute tonsillitis 457608 08 J03.90 Health Concerns Section Related Observation LastModified by Organization Detai ls LastModified Time None Recorded Concern Status LastModified by Organization Details LastModified Time None Recorded Advance Directives Directive None Recorded Payers Encounter Date Sequence Insurance Name Policy Number Policy Bain Covered Member ID Bain Member ID Guarantor Name 07/23/2022 1 [facility] (MEDICAID REPLACEMENT - HMO) FLORA Acevedozquez [id number] Ronni Humberto 05/16/2023 1 [facility] (MEDICAID REPLACEMENT - HMO) FLORA Acevedozquez [id number] Ronni Humberto Notes Date Note Type Note [...] no tinnitus MARCELO BILLY [address] [place], [address], [place] - [facility] 07/23/2022 18:32:11 05/16/2023 text/html Sore throatRepor dk bypatient.Notes:43 y.o male pt presents with sore throat and swollen lymph nodes since Sunday. Pain is getting worse and radiating to his left and right ear. Pt is speaking and swallowing normal. MARCELO CENTENO [address], [address], [place] - [facility] 05/16/2023 17:47:12
== END 2024-12-11 14:14 | disposition home or self-care (01) ==
LOC: HO.RHE 13:45
PROVIDERS: PCP Internal Medicine; Visit Provider Student in an Organized Health Care Education/Training Program
DX: L40.50 Arthropathic psoriasis, unspecified (principal); M72.2 Plantar fascial fibromatosis; Z79.631 Long term (current) use of antimetabolite agent; Z51.81 Encounter for therapeutic drug level monitoring; Z79.620 Long term (current) use of immunosuppressive biologic
CPT/HCPCS: 99214; G2211

== ENCOUNTER → 2024-12-11 13:44 | Outpatient (BNVA) | payer MEDICARE, MEDICAID, SELFPAY | PROVIDERS: PCP Internal Medicine; Visit Provider Student in an Organized Health Care Education/Training Program | DX: L40.50 Arthropathic psoriasis, unspecified (principal); M72.2 Plantar fascial fibromatosis; M19.041 Primary osteoarthritis, right hand; M19.042 Primary osteoarthritis, left hand; Z51.81 Encounter for therapeutic drug level monitoring; Z79.620 Long term (current) use of immunosuppressive biologic; Z79.631 Long term (current) use of antimetabolite agent | CPT/HCPCS: 99212 ==

== ENCOUNTER 2025-04-14 14:54 | Outpatient (REF) | payer OTHER, SELFPAY ==
[2025-04-14 15:11] LABS: MANUAL DIFF FLAG NO
[2025-04-14 15:24] LABS: Hematocrit 40.3 % (42.0-52.0); Hemoglobin 14.0 g/dl (14.0-18.0); Imm Gran Abs Auto 0.05 X10*3/uL (0.00-0.03); Imm Gran Pct Auto 0.6 % (0.0-0.4); Lymphocytes Absolute Auto 1.6 X10*3/uL (1.2-4.9); Mean Corpuscular HGB Conc 34.7 g/dl (31.0-36.0); Mean Corpuscular Hemoglobin 33.4 pg (27.0-33.0); Mean Corpuscular Volume 96.2 fL (80.0-98.0); NRBC Abs Auto 0.000 X10*3/uL (0.0-0.012); NRBC Pct Auto 0.0 /100WBC (0.0-0.2); Platelet Count 289 X10*3/uL (160-400); Red Blood Count 4.19 X10*6/uL (4.60-5.80); White Blood Count 8.3 X10*3/uL (4.8-10.8)
--- OUTSIDE RECORDS SUMMARY | 2025-04-14 15:49 | XMS_ITS | Encounter Summary ---
Author Organization [facility] Address [address] [place] [address] Care Team Providers Care Hvac Mechanical Engineer Name Role Phone Unavailable Primary Care Provider Unavailabl e Encounter Details Date Type Department Care Team (Late st Contact Info) Description 05/01/2017 Scanned Document [facility] [place] at [address] [place] [address] Daniel Morgan, [address] [phone] Social History Tobacco Use Types Packs/Day Years [...]
--- OUTSIDE RECORDS SUMMARY | 2025-04-14 15:49 | XMS_ITS | Clinical Summary ---
Author Organization [facility] [address] [facility] Address [address] [place] [address] Phone Care Team Providers Care Home Health Care Social Worker Name Role Phone Mirlande Dean MD Primary Care Provider [phone] Allergies Active Allergy Reactions Criticality Noted Date Comments Other 03/28/2017 Seasonal Allergies Medications amphetamine-de xtroamphetamin e (ADDERALL) 15 mg tablet Take 1 tablet (15 mg total) by mouth 1 (one) time each day. [facility] prescribed meds Active adalimumab (Humira,CF, Pen) 40 mg/0.4 mL pen [facility] prescribed meds Active methotrexate 2.5 mg tablet [place] prescribed meds Active traZODone (DESYREL) 50 mg tablet Take 2 tablets (100 mg total) by mouth 1 (one) time each day in the evening. [facility] prescribed meds Active blood sugar diagnostic (FreeStyle Lite Strips) test strip Use to test blood sugar once daily 01/09/20 23 Active folic acid (FOLVITE) 1 mg tablet Take 1 tablet (1,000 mcg total) by mouth 1 (one) time each day. [facility] prescribes meds Active blood-glucose meter (BLOOD GLUCOSE MONITORING MISC) Use to test blood sugars once daily 06/14/20 22 Active FREESTYLE LANCETS MISC Use to test blood sugars once daily 06/13/20 22 Active fenofibrate (TRICOR) 145 mg tablet Take 145 mg by mouth daily. 03/13/20 22 Active ARIPiprazole (ABILIFY) 10 mg tablet Take 2 tablets (20 mg total) by mouth at bedtime. [facility] prescribes meds Active hydrOXYzine pamoate (VISTARIL) 25 mg capsule Take 1 capsule (25 mg total) by mouth 3 (three) times a day if needed for anxiety. [facility] prescribed smeds Active fluticasone propionate (FLONASE) 50 mcg/actuation nasal spray SPRAY 2 SPRAYS BY NASAL ROUTE DAILY 48 mL 1 12/04/19 25 Active meclizine (ANTIVERT) 12.5 mg tablet TAKE 1 TABLET BY MOUTH DAILY NEEDED FOR DIZZINESS 30 tablet 1 12/04/19 25 Active acetaminophen (TYLENOL 8 HOUR) 650 mg 8 hr tablet Take 1 tablet (650 mg total) by mouth every 8 (eight) hours if needed. 08/19/20 24 Active prazosin (MINIPRESS) 2 mg capsule Take 1 capsule (2 mg total) by mouth at bedtime. at bedtime 07/22/20 24 Active insulin glargine,hum.r ec.anlog (Basaglar KwikPen U-100 Insulin) 100 unit/mL (3 mL) injection pen Inject 10 units SC daily at bedtime 15 mL 01/21/20 25 Active dulaglutide (Trulicity) 1.5 mg/0.5 mL pen injector injectionIndic ations:Type 2 diabetes mellitus without complication, without long-term current use of insulin ([facility] V24, [facility] V28) Inject 1.5 mg into the skin every 7 days. 2 mL 01/21/20 25 Active atorvastatin (LIPITOR) 40 mg tablet Take 1 tablet (40 mg total) by mouth 1 (one) time each day. 30 each 01/29/20 25 026 Active pen needle, diabetic (Alda 2nd Gen Pen Needle) 32 gauge x 5/32 needle Use daily with insulin 100 each 3 04/02/20 25 Active pen needle, diabetic 32 gauge x 5/32 needle USE ONE DAILY WITH VICTOZA. 07/04/20 23 025 Discontinued Active Problems Problem Noted Date Diagnosed Date Psoriatic arthritis ([facility] V24, [facility] V28) 0 01/01/2024 Overview (06/05/2024): On multiple agents followed by rheumatology. Type 2 diabetes mellitus ([facility] V24, [facility] V 28) 05/18/2020 Hypertriglyceridemia 05/08/2019 Obstructive sleep apnea 06/27/2017 Overview (06/05/2024): [facility] Home Polysomnogram: Date 06/25/2017; AHI 84, Unclassified apneas 0; Obstructive apneas 460; Central apneas 1; Mixed apneas 2; hypopneas 153; average oxygen saturation 91% (lowest 65% with saturations <88% for 5% or more of study) Hyperlipidemia 03/28/2017 Fatty liver disease, nonalcoholic 01/01/2017 Overview (06/05/2024): Dr. Guzman Obesity (BMI 30.0-34.9) 01/01/2017 Anxiety 07/23/2013 Bipolar disorder ([facility] V24, [facility] V28) 11/2012 Overview (06/05/2024): Psychiatrist - Dr. Son Low back pain 07/23/2013 Overview (06/05/2024): Dr. Triana - in [place]; fusion of L4-L5 Encounters Date Type Department Care Team Description 04/03/2025 Telephone Pulmonolgy - [place] [address] [phone] Lisset Roberts [place] 03/24/2025 Telephone Pulmonol - [place] [address] [phone] Melissa Llamas MD 01/28/2025 5:00 PM EDT Office Visit Adult Medicine [address] [phone] Neal Go NP Acute cystitis with hematuria (Primary Dx); Type 2 diabetes mellitus without complication, without long-term current use of insulin ([facility] V24, [facility] V28); Bloating; Encounter for screening for cardiovascular disorders; Encounter for screening for malignant neoplasm of prostate; Encounter for screening for malignant neoplasm of colon 01/20/2025 3:30 PM EDT Office Visit Endocrinology - [place] [phone] [place] [phone] Mackenzie Hoffman PA Type 2 diabetes mellitus without complication, without long-term current use of insulin ([facility] V24, [facility] V28) (Primary Dx) 01/16/2025 Telephone Endocrinology [address] [phone] Mackeznie Hoffman PA from Last 3 Months Immunizations Name Administration Dates Next Due Influenza Quadravalent, MDCK , 0.5ml, preservative free (Flucelvax) 6mo and older 07/04/2023,05/09/2022,05/07/2019,2017,09/07/2017 Influenza trivalent, 0.5mL, preservative free (Fluarix; FluLaval; Fluzone) ages 6mo and older (Afluria) 3 years and older 07/23/2013 PPD Test 05/09/2019,05/07/2019 Practice Management e-Tools SARS-CoV-2 COVID-19, mRNA, LNP-S, preservative free 06/22/2021 [...] pain ; COMMENT: Dr. Triana - in [place]; fusion of L4-L5 Anxiety 07/23/2013 DX:Anxiety Fatty liver disease, nonalcoholic 01/01/2017 DX:Fatty liver disease, nonalcoholic Bipolar disorder ([facility] V2 4, [facility] V28) 07/23/2013 DX:Bipolar disorder (HCC); COMMENT: Psychiatrist - Dr. Son Hyperlipidemia 03/28/2017 DX:Hyperlipidemi a Obesity (BMI 30.0-34.9) 01/01/2017 DX:Obesi ty (BMI 30.0-34.9) Obstructive sleep apnea 06/27/2017 DX:Obstr uctive sleep apnea; COMMENT: [facility] Home Polysomnogram: Date 06/25/2017; AHI 84, [...] your loved ones. For example, child care worker or elderly care for an older [...] Sign Reading Time Taken Comments Blood Pressure 125/66 01/28/2025 5:10 PM EDT Pulse 96 01/28/2025 5:10 PM EDT Temperature 36.2 C (97.1 F) 01/28/2025 5:10 PM EDT Respiratory Rate 16 01/28/2025 5:10 PM EDT Oxygen Saturation 98% 01/28/2025 5:10 PM EDT Inhaled Oxygen Concentration - - Weight 94.2 kg (207 lb 9.6 oz) 01/28/2025 5:10 P M EDT Height 167.6 cm (5' 6 ) 01/28/2025 5:10 PM EDT Body Mass Index 33.51 01/28/2025 5:10 PM EDT Plan of Treatment Upcoming Encounters Date Type Department Care Team (Late st Contact Info) Description 06/15/2025 3:30 PM EDT Office Visit Pulmonolgy - [place] 175 [facility] [address] [place] [address] Melissa Llamas MD [address] [place] [phone] 07/22/2025 3:30 PM EST Office Visit Endocrinology - [place] [address] [place] [address] Mackenzie Hoffman PA [address] [place] [address] Health Maintenance Due Date Last Done Comments Colorectal Cancer Screening: Colonoscopy 07/28/2022 Medicare Annual Wellness Visit 07/28/2022 DTaP,Tdap,and Td Vaccines (2 - Td or Tdap) 07/23/2023 07/23/2013 Influenza Vaccine (#1) 2025 , 07/04/2023, 05/09/2022, Additional history exists Diabetes: Annual Foot Exam 04/29/2025 04/29/2024 Social Influencers of Health Screening 07/23/2025 07/23/2024 Diabetes: Blood Sugar Control Test (HGBA1C) 08/29/2025 02/26/2025, 10/24/2024, 07/25/2024, Additional history exists Diabetes: Annual Urine Albumin-Creatinine Ratio (uACR) 02/26/2026 02/26/2025, 07/25/2024, 10/20/2022 Diabetes: Annual GFR (Glomerular Filtration Rate) 02/26/2026 02/26/2025, 11/04/2024, 07/29/2024, Additional history exists Diabetes: Annual Retina Eye Exam 03/27/2026 03/27/2025, 04/03/2024 Cholesterol Screening (Lipid Panel) 02/26/2030 02/26/2025, 07/25/2024, 10/20/2022 COVID-19 Vaccine Discontinued 08/05/2021, 06/22/2021 Hepatitis C Screening Completed 06/14/2023 Pneumococcal Vaccine: Pediatrics (0 to 5 Years) and At-Risk Patients (6 to 49 Years) Completed 07/04/2023 Depression Screening Completed 10/29/2024 HIV Screening Completed 02/26/2025, 06/14/2023 HIB Vaccines Aged Out No longer eligi ble based on patient's age to complete this topic HPV Vaccines Aged Out No longer eligi ble based on patient's age to complete this topic Hepatitis A Vaccines Aged Out No long er eligible based on patient's age to complete this topic Hepatitis B Vaccines Discontinued IPV Vaccines Aged Out No longer eligi [...] Name Priority Date/Time Associated Diagnosis Comments EXTERNAL DIABETIC RETINA EYE EXAM 03/27/2025 BASIC METABOLIC PANEL Routine 02/26/2025 4:18 PM EDT Type 2 diabetes mellitus without complication, without long-term current use of insulin ([facility] V24, [facility] V28) MICROALBUMIN CREATININE URINE RATIO Routine 02/26/2025 4:18 PM EDT Acute cystitis with hematuria Type 2 diabetes mellitus without complication, without long-term current use of insulin ([facility] V24, [facility] V28) Encounter for screening for cardiovascular disorders LIPID PANEL WITH REFLEX TO DIRECT LDL Routine 02/26/2025 4:18 PM EDT Encounter for screening for cardiovascular disorders HEMOGLOBIN A1C Routine 02/26/2025 4:18 PM EDT Acute cystitis with hematuria Type 2 diabetes mellitus without complication, without long-term current use of insulin ([facility] V24, [facility] V28) Encounter for screening for cardiovascular disorders PROSTATE SPECIFIC ANTIGEN SCREEN Routine 02/26/2025 4:18 PM EDT Encounter for screening for malignant neoplasm of prostate HIV 1, 2 ANTIBODY, P24 ANTIGEN WITH REFLEX TO DIFFERENTIATION Routine 02/26/2025 4:18 PM EDT Acute cystitis with hematuria Type 2 diabetes mellitus without complication, without long-term current use of insulin ([facility] V24, [facility] V28) Encounter for screening for cardiovascular disorders Encounter for screening for malignant neoplasm of prostate Encounter for screening for malignant neoplasm of colon HEPATITIS C SCREENING Routine 06/14/2023 from Last 3 Months or Most Recently Relevant to Health Maintenance Results * External Diabetic Retina Eye Exam Report (03/27/2025) Anatomical Region Laterality Modality Ultrasound Provider [facility] IMG US PROCEDURES Final Result * Prostate specific antigen screen (02/26/2025 4:18 PM EDT) PSA 0.40 0.00 - 4.00 ng/mL LAB CHEMISTRY METHOD 02/26/2025 8:[address] [facility] Blood Venous blood specimen / Unknown Venipuncture / Unknown 02/26/2025 4:18 PM EDT 02/26/2025 4:[address] [facility] - 02/26/2025 8:39 PM EDT The Siemens Advia Centaur Chemiluminescent Immunoassay is used. Results obtained with different assay methods or kits cannot be used interchangeably. Results cannot be interpreted as absolute evidence of the presence or absence of malignant disease. Neal Go NP LAB BLOOD ORDERABLES Final R esult [facility] [address] [place] [address], * HIV 1,2 antibody, p24 antigen with reflex to differentiation (02/26/2025 4:18 PM EDT) HIV Combo AB/AG Negative Negative LAB CHEMISTRY METHOD 02/26/2025 8:[address] [facility] Blood Venous blood specimen / Unknown Venipuncture / Unknown 02/26/2025 4:18 PM EDT 02/26/2025 4:[address] [facility] - 02/26/2025 8:00 PM EDT This assay is a 4th generation assay allowing for earlier detection of HIV infection by detecting the presence of the HIV-1 p24 antigen as well as the traditional antibodies to HIV type 1 (including group O) and type 2. Use of a 4th generation assay is the current CDC recommendation for HIV screening. Neal Go NP LAB BLOOD ORDERABLES Final R esult Performing Organization Address City/[facility]/ZIP Co de Phone Number [facility] [address] [place] [address], [place] [phone] * (ABNORMAL) Lipid panel with reflex to direct LDL (02/26/2025 4:18 PM EDT) Cholesterol 183 0 - 200 mg/dL LAB CHEMISTRY METHOD 02/26/2025 6:[address] [facility] Triglycerides 192(H) 0 - 150 mg/dL LAB CHEMISTRY METHOD 02/26/2025 6:[address] [facility] HDL 49 >=40 mg/dL LAB CHEMISTRY METHOD 02/26/2025 6:[address] [facility] LDL Calculated 96 0 - 100 mg/dL LAB CHEMISTRY METHOD 02/26/2025 6:[address] [facility] VLDL Cholesterol [place] 38.4 mg/dL LAB CHEMISTRY METHOD 02/26/2025 6:[address] [facility] Non HDL Chol. (LDL+VLDL) 134 <145 mg/dL LAB CHEMISTRY METHOD 02/26/2025 6:[address] [facility] Chol/HDL Ratio 3.7 0.0 - 4.4 LAB CHEMISTRY METHOD 02/26/2025 6:[address] [facility] Blood Venous blood specimen / Unknown Venipuncture / Unknown 02/26/2025 4:18 PM EDT 02/26/2025 4:18 PM EDT Neal Go NP LAB BLOOD ORDERABLES Final R esult [facility] [address] [place] [address], [place] [phone] * Microalbumin creatinine urine ratio (02/26/2025 4:18 PM EDT) Creatinine, Urine 373.0 mg/dL LAB CHEMISTRY METHOD 02/26/2025 7:[address] [facility] Comment:Results verified by repeat testing Microalb, Ur 23.0 0.0 - 29.0 mg/L LAB CHEMISTRY METHOD 02/26/2025 7:[address] [facility] Microalb/Creat Ratio 6 <30 mg/g creat LAB CHEMISTRY METHOD 02/26/2025 7:[address] [facility] Urine Urine specimen obtained by clean catch procedure / Unknown Non-blood Collection / Unknown 02/26/2025 4:18 PM EDT 02/26/2025 4:18 PM EDT Neal Go PHARMACEUTICAL LABORATORY TECHNICIAN LAB URINE ORDERABLES Final R esult Performing Organization Address [facility] de Phone Number [facility] [address] [place] [address], [place] [phone] * Hemoglobin A1c (02/26/2025 4:18 PM EDT) Hemoglobin A1C 5.8 <6.5 % LAB CHEMISTRY METHOD 02/26/2025 9:[address] [facility] Mean Bld Glu Estim. 120 mg/dL LAB CHEMISTRY METHOD 02/26/2025 9:[address] [facility] Blood Venous blood specimen / Unknown Venipuncture / Unknown 02/26/2025 4:18 PM EDT 02/26/2025 4:18 PM EDT Neal Go PHARMACEUTICAL LABORATORY TECHNICIAN LAB BLOOD ORDERABLES Final R esult Performing Organization Address City/[facility]/ZIP Co de Phone Number [facility] [address] [place] [address], [place] [phone] * Basic metabolic panel (02/26/2025 4:18 PM EDT) Sodium 140 133 - 145 mmol/L LAB CHEMISTRY METHOD 02/26/2025 6:[address] [facility] Potassium 3.7 3.5 - 5.5 mmol/L LAB CHEMISTRY METHOD 02/26/2025 6:[address] [facility] Chloride 106 96 - 110 mmol/L LAB CHEMISTRY METHOD 02/26/2025 6:[address] [facility] CO2 28 21 - 32 mmol/L LAB CHEMISTRY METHOD 02/26[facility]25 [facility] Anion Gap 6 3 - 11 LAB CHEMISTRY METHOD 02/26/2025 6:[facility] Glucose 84 70 - 100 mg/dL LAB CHEMISTRY METHOD 02/26/2025 6:[address] [facility] BUN 13 5 - 25 mg/dL LAB CHEMISTRY METHOD 02/26/2025 6[facility] Creatinine 1.00 0.70 - 1.30 mg/dL LAB CHEMISTRY METHOD 02/26/2025 6:48 [facility] eGFR 93 >=60 mL/min/1. 73m2 LAB CHEMISTRY METHOD 02/26/2025 6:[address] [facility] Comment:Calculation based on the Chronic Kidney Disease Epidemiology Collaboration (CKD-EPI) equation refit without adjustment for race. BUN/Creatinine Ratio 13.0 LAB CHEMISTRY METHOD 02/26/2025 6:[address] [facility] Calcium 9.0 8.5 - 10.5 mg/dL LAB CHEMISTRY METHOD 02/26/2025 6:48 [facility] Blood Venous blood specimen / Unknown Venipuncture / Unknown 02/26/2025 4:18 PM EDT 02/26/2025 4:18 PM EDT us Mackenzie ROBERTSON LAB BLOOD ORDERABLES Final Result [facility] ([facility]) [facility] [address] [place] [address], [place] [phone] * Hepatitis C Screening (06/14/2023) Hepatitis C Screening abstracted us Historical Provider HEALTH MAINTENANCE Final Result from Last 3 Months or Most Recently Relevant to Health Maintenance Insurance MEDICARE [employer] MEDICARE Member Subscriber Plan / Payer (Ef fective 2025-Present) Name:RONNI ANTHONY Relation to Subscriber:Self Name:Ronni Anthony Payer ID:[id number] Group ID:[id number] Type:Not on file Address: [address] [place] [id number] Care Teams Home Health Care Social Worker Relationship Specialty Start Date End Date Mirlande Dean MD [address] [place] [address] PCP - General Internal Medicine 11/02/17
--- OUTSIDE RECORDS SUMMARY | 2025-04-14 15:49 | XMS_ITS | Clinical Summary ---
Author Organization [facility] Address [address] [place] [address] Care Team Providers Care File Conversion Operator Name Role Phone Unavailable Primary Care Provider [...] 85 06/22/2015 2:37 PM EST Temperature 36.8 C (98.3 F) 05/24/2015 9:12 AM EDT Respiratory Rate 16 05/24/2015 9:12 AM EDT [...] Tdap) 07/23/2023 07/23/2013 Influenza Vaccine (#1) 2025 8, 07/23/2013 Pneumococcal Vaccine Aged Out No long er eligible based on patient's age to complete this topic RSV Ped < 20 months Aged Out No longe r eligible based on patient's age to complete this topic
--- OUTSIDE RECORDS SUMMARY | 2025-04-14 15:49 | XMS_ITS | Encounter Summary ---
Author Organization [facility] Address [address] [place] [address] Care Team Providers Care Baler Operator Name Role Phone Unavailable Primary Care Provider Unavailabl e Encounter Details Date Type Department Care Team (Late st Contact Info) Description 05/01/2017 Scanned Document [facility] [place] at [address] [place] [address] Daniel Morgan, [address] [phone] Social History Tobacco Use Types Packs/Day Years [...]
--- OUTSIDE RECORDS SUMMARY | 2025-04-14 15:49 | XMS_ITS | Encounter Summary ---
Author Organization [facility] Address [address] [place] [address] Care Team Providers Care Carbide Grinder Name Role Phone Unavailable Primary Care Provider Unavailabl e Encounter Details Date Type Department Care Team (Late st Contact Info) Description 05/01/2017 Scanned Document [facility] [place] at [address] [place] [address] Daniel Morgan, [address] [phone] Social History Tobacco Use Types Packs/Day Years [...]
--- OUTSIDE RECORDS SUMMARY | 2025-04-14 15:49 | XMS_ITS | Encounter Summary ---
Author Organization [facility] Address [address] [place] [address] Care Team Providers Care Financial Reporting Advisor Name Role Phone Mirlande Dean MD Primary Care Provider [phone] Encounter Details Date Type Department Care Team ([facility] st Contact Info) Description 04/03/2025 Telephone [facility] [place] [address] [facility] [address] [place] [address] Lisset Roberts MA Social History Tobacco Use Types Packs/Day Years [...] ed Within the last 3 months, ho erin many times did you visit the emergency [...] for your loved ones. For example, child day care center worker or elderly care for an older [...] as of this encounter Progress Notes * Lisset Roberts MA - 04/03/2025 10:47 AM EDT Regional faxed request to have an order signed by Dr. Llamas, sent to onbase folder documented in this encounter Plan of Treatment Upcoming Encounters Date Type Department Care Team (Late st Contact Info) Description 06/15/2025 3:30 PM EDT Office Visit [address] [place] [address] Melissa Llamas MD [address] [place] [phone] 07/22/2025 3:30 PM EST Office Visit Endocrinology - [place] [address] [place] [address] Mackenzie Hoffman PA [address] [place] [address] documented as of this encounter Visit Diagnoses Not on filedocumented in this encounter Additional Health Concerns Assessment Noted Time PHQ-9 Depression Total Score: 14 025 12:26 PM EDT documented as of this encounter Care Teams Financial Reporting Advisor Relationship Specialty Start Date End Date Mirlande Dean MD [address] [place] [address] PCP - General Internal Medicine 11/02/17 documented as of this encounter
--- OUTSIDE RECORDS SUMMARY | 2025-04-14 15:49 | XMS_ITS | Clinical Summary ---
Author Organization [facility] Address [address] [place] [address] Care Team Providers Care Monorail Helper Name Role Phone Unavailable Primary Care Provider [...] 72 06/25/2015 2:42 PM EST Temperature 36.1 C (96.9 F) 06/25/2015 2:42 PM EST Respiratory Rate 20 06/25/2015 2:42 PM EST [...]
[2025-04-14 15:50] LABS: Alanine Aminotransferase 18 U/L (0-40); Albumin Level 4.3 g/dL (3.5-5.0); Alkaline Phosphatase 95 U/L (39-117); Anion Gap 12 (12-20); Aspartate Amino Transferase 17 U/L (5-37); Blood Urea Nitrogen 19 mg/dL (9-16); Calcium 9.0 mg/dL (8.4-10.2); Carbon Dioxide 24 mmol/L (22-29); Chloride 110 mmol/L (96-108); Estimated Glomerular Filt Rate > 60; Potassium 4.0 mmol/L (3.3-5.1); Sodium 142 mmol/L (135-145); Total Protein 7.0 g/dL (6.5-8.0)
[2025-04-15 08:18] LABS: HBS Num1 2.92 mIU/mL (0-7.99); HBc Num1 0.04 S/CO (0.00-0.79); HBsAGNum1 0.50 S/CO (0.00-0.99); Hepatitis A Antibody IgM 0.31 Index (0-0.79); Hepatitis B Surface Antigen Negative (Negative); ~HepC Num1 0.10 S/CO (0.00-0.79); ~Hepatitis A Antibody IgM Nonreactive (Nonreactive); ~Hepatitis B Surface Antibody NONREACTIVE (Nonreactive); ~Hepatitis C Antibody Nonreactive (Nonreactive)
[2025-04-17 18:24] LABS: TS Negative Control Passed; TS Panel A 0; TS Panel B 0; TS Positive Control Passed; TSpotTB Negative (Negative)
== END 2025-04-14 14:55 | disposition home or self-care (01) ==
LOC: HO.LAB 14:54
PROVIDERS: PCP Internal Medicine; Visit Provider Student in an Organized Health Care Education/Training Program
DX: Z11.1 Encounter for screening for respiratory tuberculosis (principal); Z11.59 Encounter for screening for other viral diseases; L40.50 Arthropathic psoriasis, unspecified
CPT/HCPCS: 36415; 80053; 85025; 85652; 86140; 86481; 86704; 86706; 86709; 86803; 87340

== ENCOUNTER 2025-05-06 11:04 | Outpatient (AMB) | payer OTHER, SELFPAY ==
--- NOTE | 2025-05-06 11:09 | A.OFFVIS_ITS ---
Vital Signs 05/06/25 11:16 Height 5 ft 6 in Weight 201 lb 4.513 oz BMI 32.5 BP 112/64 Blood Pressure Location Rt brachial Position Sitting Pulse 76 Pulse Source Pulse Oximeter Pulse Oximetry (%) 98 Oxygen Delivery Method Room Air Intake Visit Reasons: PSA Intake Note: Patient presents for PsA follow up. Allergies Seasonal Allergies Allergy (Unknown, Verified 05/06/25 11:14) Unknown Medication List - Last Reconciled 05/06/25 by Bernice Jones MD acetaminophen ER (Tylenol Arthritis Pain) 650 mg PO Q8H PRN adalimumab (Humira(CF) Pen) 40 mg (0.4 mL) subcut Q2W albuterol sulfate 90 mcg/actuation (ProAir HFA) 2 puffs inhalation Q6H PRN aripiprazole 20 mg PO BEDTIME atorvastatin 20 mg PO DAILY dextroamphetamine-amphetamine 15 mg (Adderall) 15 mg PO DAILY diclofenac sodium 1% 4 grams topical QID dulaglutide (Trulicity) 1.5 mg subcut QWEEK fenofibrate 54 mg PO DAILY fluticasone propionate 50 mcg/actuation 1 spray intranasal DAILY folic acid 1 mg PO DAILY ibuprofen 800 mg PO Q12H PRN insulin glargine (Lantus Solostar U-100 Insulin) 20 units subcut BEDTIME loratadine 10 mg PO DAILY methotrexate sodium 12.5 mg (5 x 2.5 mg) PO QWEEK 90 days trazodone 50 mg PO BEDTIME HPI Comments Details: Patient is a 45-year-old male with diabetes, hyperlipidemia, bilateral cubital tunnel syndrome status post left cubital tunnel release, history of hepatitis-B infection and psoriatic arthritis here today for follow up Interval History: Patient last seen 12/11/24 with me - on Humira 40mg SC every 2 weeks and Mtx 15mg weekly, and folic acid 1mg daily - Patient reports no new symptoms or changes since that visit - Intermittent AM stiffness lasting about 10 mins - No PsO rash Today - on Humira 40mg SC every 2 weeks and Mtx 15mg weekly, and folic acid 1mg daily - Did not do the exercises for the plantar fasciitis but notes overall improvement. Still has heel pain with prolonged standing but otherwise okay - Did not use the topical diclofenac because insurance would not cover it but his hands are overall stable - had cubital tunnel surgery abotu 1 year ago but is feeling a pain at the incision site - No prolonged AM stiffness Rheumatologic History: PsA dx 09/11 MTX started 09/11 Humira added 11/09 effective Initial history: This is 42-year-old male with past medical history of hypertension, dyslipidemia, type 2 diabetes mellitus, fatty liver, anxiety, bipolar disorder who presents for evaluation of diffuse joint pain. The condition started 3-4 months ago with pain swelling and stiffness of his hands, wrists, elbows & toes. He also has triggering of his index finger. He was evaluated by Orthopedic surgery and found to have significantly elevated inflammatory markers. He was started on a prednisone taper with dramatic improvement of his symptoms however his blood sugar was significantly elevated. Patient currently takes Motrin 800 mg Twice daily with little relief. He states he was diagnosed with psoriasis since he was a child. Usually effects the skin behind his ears and his nails. There is no history suggestive of uveitis or inflammatory bowel disease. Patient has had back pain many years ago since after injury to the back. He had lumbar spine surgery many years ago. He is following up with [facility] and waiting to do an injection in his back. Current Rheumatology Medication(s): Humira 40mg SC every other week Methotrexate 15mg weekly Folic acid 1mg daily PFS Medical History Hepatitis B Recurrent erosion of cornea, right eye Psoriasis Hyperlipidemia Anxiety Bipolar 1 disorder Low back pain Fatty liver Obesity SAGE (obstructive sleep apnea) Hypertriglyceridemia Diabetes Surgical History History of back surgery History of lumbar fusion Family History Mother Diverticulosis Fibromyalgia Arthritis Thyroid disease Family/Other Lupus Social History Household Members: Significant Other and Children Alcohol intake: current Alcohol intake frequency: holidays/special occasions only Patient Tobacco Use Status: Current everyday Tobacco user Tobacco use type: Smokeless Tobacco Cigarettes Per Day: 6 Current occupational status: unemployed Current occupation: right hand dominant Review of Systems Const Details: Review of Systems Constitutional: Denies fever, chills, weight loss ENT: Denies vision changes, eye pain or eye redness, dental caries, dry mouth GI: Denies nausea, vomiting, diarrhea, abdominal pain, change in BM Pulm: Denies SOB, [place], hemoptysis, wheezing Cards: Denies chest pain, palpitations Skin: Denies Raynaud's, rash, nail changes, photosensitivity, ART CONSULTANT: Denies headaches, weakness, paresthesias, recurrent falls MSK: as per HPI All other systems reviewed and are unremarkable except noted above Physical Exam Exam Exam: Vital signs reviewed Physical Examination CONSTITUITIONAL Patient alert and cooperative. Well appearing and in no apparent painful distress MSK Hands * Right Hand: Able to make a fist. No swelling or tenderness to palpation of the MCPs, PIPs or DIPs. * Left Hand: Able to make a fist. No swelling or tenderness to palpation of the MCPs, PIPs or DIPs. * Herbedens nodes noted bilaterally Wrists * Right Wrist: Full ROM to flexion and extension. No swelling or TTP * Left Wrist: Full ROM to flexion and extension. No swelling or TTP Elbows * Right Elbow: Full ROM. No swelling or TTP. No TTP of the medial epicondyle. No TTP of the lateral epicondyle * Left Elbow: Full ROM. No swelling or TTP. No TTP of the medial epicondyle. No TTP of the lateral epicondyle Shoulders * Right shoulder: Full ROM. No swelling noted. No TTP of the AC joint. No TTP of the subacromial bursa. No TTP of the posterior shoulder * Left shoulder: Full ROM. No swelling noted. No TTP of the AC joint. No TTP of the subacromial bursa. No TTP of the posterior shoulder Knees * Right knee: Full ROM. No swelling noted. No TTP of the knee joint line. No TTP of pes anserine bursa * Left knee: Full ROM. No swelling noted. No TTP of the knee joint line. No TTP of pes anserine bursa. * Crepitations felt bilaterally Ankles * Right ankle: Good ankle dorsiflexion and plantar flexion. No swelling. No TTP of the ankle joint * Left ankle: Good ankle dorsiflexion and plantar flexion. No swelling. No TTP of the ankle joint Feet * Right foot: Negative squeeze test * Left foot: Negative squeeze test Tender points? * No tenderness to palpation of the bilateral trapezius, supraspinatus, anterior costochondral junctions, bilateral suboccipital muscle insertions SKIN No rashes Vital Signs: Last Vital Signs Pulse 76 05/06/25 11:16 BP 112/64 05/06/25 11:16 Pulse Ox 98 05/06/25 11:16 Oxygen Delivery Method Room Air 05/06/25 11:16 BMI result Body Mass Index 32.5 Results Reviewed Results Reviewed: Laboratory Tests 04/14/25 15:09 WBC 8.3 RBC 4.19 L Hgb 14.0 Hct 40.3 L Plt Count 289 ESR 9 Sodium 142 Potassium 4.0 Chloride 110 H Carbon Dioxide 24 BUN 19 H Creatinine 0.96 AST 17 ALT 18 C-Reactive Protein 0.22 Laboratory Tests 08/02/22 11:41 Cycl Citrul Peptide IgG <16 HLA-B27 Negative Laboratory Tests 04/14/25 15:09 Hepatitis A IgM Ab Nonreactive Hep Bs Antigen Negative Hep Bs Antibody NONREACTIVE Hep B Core Total Ab Nonreactive Hepatitis C Ab (EIA) Nonreactive TB Test (T-Spot) Com Negative Assessment & Plan Assessment & Plan (1) Psoriatic arthritis: Comment: PsA dx 09/11 MTX started 09/11 Humira added 11/09 effective Code(s): L40.50 - Arthropathic psoriasis, unspecified Category: Medical Plan: #PsA Patient is a 45-year-old male with psoriatic arthritis here today for follow up. Diseases currently in remission on Humira and methotrexate. No synovitis on exam today Plan - Humira 40mg SC every other week - Methotrexate 12.5mg PO every week - Topical diclofenac 1% apply to bilateral hands 4 times a day, can purchase OTC - RTC 6 months - Labs before visit: CBC, CMP, ESR, CRP (2) Polyarticular osteoarthritis: Code(s): M15.9 - Polyosteoarthritis, unspecified Plan: #Polyarticular OA Patient with a history of polyarticular osteoarthritis now complaining of worsening knee and elbow pain. We will check x-rays Plan - XR bilateral elbows and knees (3) Plantar fasciitis, bilateral: Code(s): M72.2 - Plantar fascial fibromatosis Plan: #Bilateral plantar fasciitis Patient with bilateral heel pain and tenderness to palpation concerning for bilateral plantar fasciitis. Stretches given to patient. At review in 4 months if no improvement we can consider steroid injection Plan - Stretches given - Consider bilateral steroid injection in 4 months if no improvement (4) Methotrexate, mcc, current use: Code(s): Z79.631 - retirement (current) use of antimetabolite agent Category: Medical Plan: #Long-term Current Use of Methotrexate Discussed with patient the benefits and risks of methotrexate for managing their rheumatic condition Benefits include reduced pain, reduced mortality, maintenance of remission and reduction of flares Risks include oral ulcers, photosensitivity, hepatotoxicity, hematologic toxicity, pneumonitis, flu-like symptoms (especially day after administration), nodulosis, lymphomas ? Limit alcohol and avoid Bactrim ? Monitoring: ?CBC, BMP, LFTs every 3-4 months and hepatitis serologies as needed (5) Encounter for monitoring of adalimumab therapy: Code(s): Z51.81 - Encounter for therapeutic drug level monitoring; Z79.620 - coloring checker (current) use of immunosuppressive biologic Plan: #Long-term Use of TNF Inhibitors: Humira Discussed with the patient the benefits and risks of TNF inhibitors for the management of the rheumatic condition Benefits include reduce pain, maintenance of remission and reduction of flares as well as ?progression of the disease Risks include injection sites/infusion reactions, serious infections (such as bacterial infections, opportunistic infections), malignancy, delaminating syndromes, autoimmune phenomena, CHF exacerbations, palmar plantar psoriasis and cytopenias Recommended rotating injection sites, and holding medication during and for up to 1 week after resolution of a febrile illness or open skin wound Plan I spent 30 minutes reviewing the record and labs, taking a history, examining the patient, discussing the treatment plan, ordering diagnostic work up and documenting in the medical record Orders: Orders XR knee LT 3V Today M15.9 - Polyosteoarthritis, unspecified XR elbow RT min 3V Today M15.9 - Polyosteoarthritis, unspecified XR elbow LT min 3V Today M15.9 - Polyosteoarthritis, unspecified XR knee RT 3V Today M15.9 - Polyosteoarthritis, unspecified Coding Level of Care Code Est Pt Level 4 (19865) Complex EM visit Add On G2211 Diagnoses Psoriatic arthritis L40.50 Polyarticular osteoarthritis M15.9 Plantar fasciitis, bilateral M72.2 Methotrexate, pharmacist in charge, current use Z79.631 Encounter for monitoring of adalimumab therapy Z51.81; Z79.620
[2025-05-06 11:16] VITALS: BP 112/64; PULSE 76; O2SAT 98; BMI 32.5
--- OUTSIDE RECORDS SUMMARY | 2025-05-06 14:13 | XMS_ITS | Clinical Summary ---
Author Organization [facility] Address [address] [place] [address] Care Team Providers Care Mechanic Insulator Name Role Phone Unavailable Primary Care Provider [...] - 19+ 3-dose series) 1997 COVID-19 Vaccine ( - 2023-2 5 season) 2025 Pneumococcal Vaccine: Pediat wilbur (0-5 Years) and At-Risk Patients (6 to 49 Years) Aged Out No longer eligible b ased on patient's age to complete this topic
--- OUTSIDE RECORDS SUMMARY | 2025-05-06 14:13 | XMS_ITS | Encounter Summary ---
Author Organization [facility] Address [address] [place] [address] Care Team Providers Care Ship Scaler Name Role Phone Unavailable Primary Care Provider Unavailabl e Encounter Details Date Type Department Care Team (Late st Contact Info) Description 05/01/2017 Scanned Document [facility] at [address] [place] [address] Daniel Morgan, [address] [id number] Social History Tobacco Use Types Packs/Day Years [...]
--- OUTSIDE RECORDS SUMMARY | 2025-05-06 14:13 | XMS_ITS | Encounter Summary ---
Author Organization [facility] Address [address] [place] [address] Care Team Providers Care Student Life Advisor Name Role Phone Mirlande Dean MD Primary Care Provider [phone] Encounter Details Date Type Department Care Team ([facility] st Contact Info) Description 04/03/2025 Telephone [facility] [place] [address] [place] [address] Lisset Roberts MA Social History [...] your loved ones. For example, child welfare director or elderly care for an older adult? [...] 3:30 PM EDT Office Visit Pulmonolgy - [place] [address] [place] [address] Melissa Llamas MD [address] [place] [address] 07/22/2025 3:30 PM EST Office Visit Endocrinology - [facility] [address] [place] [address] Mackenzie Hoffman PA [address] [place] [address] documented as of this encounter Visit Diagnoses Not on filedocumented in this encounter Additional Health Concerns Assessment Noted Time PHQ-9 Depression Total Score: 14 025 12:26 PM EDT documented as of this encounter Care Teams Student Life Advisor Relationship Specialty Start Date End Date Mirlande Dean MD [address] [place] [address] PCP - General Internal Medicine 11/02/17 documented as of this encounter
--- OUTSIDE RECORDS SUMMARY | 2025-05-06 14:13 | XMS_ITS | Clinical Summary ---
Author Organization [facility] [address] [facility] Address [address] [place] [address] Phone Care Team Providers Care Occasional Caregiver Name Role Phone Mirlande Dean MD Primary Care Provider Allergies Active Allergy Reactions Criticality Noted Date Comments Other 03/28/2017 Seasonal Allergies Medications amphetamine-dex troamphetamine (ADDERALL) 15 mg tablet Take 1 tablet (15 mg total) by mouth 1 (one) time each day. [facility] prescribed meds Active adalimumab (Humira,CF, Pen) 40 mg/0.4 mL pen [facility] prescribed meds Active methotrexate 2.5 mg tablet [place] prescribed meds Active traZODone (DESYREL) 50 mg tablet Take 2 tablets (100 mg total) by mouth 1 (one) time each day in the evening. [facility] prescribed meds Active blood sugar diagnostic (FreeStyle Lite Strips) test strip Use to test blood sugar once daily 3 Active folic acid (FOLVITE) 1 mg tablet Take 1 tablet (1,000 mcg total) by mouth 1 (one) time each day. [facility] prescribes meds Active blood-glucose meter (BLOOD GLUCOSE MONITORING MISC) Use to test blood sugars once daily 2 Active FREESTYLE LANCETS MISC Use to test blood sugars once daily 2 Active fenofibrate (TRICOR) 145 mg tablet Take 145 mg by mouth daily. 2 Active ARIPiprazole (ABILIFY) 10 mg tablet Take 2 tablets (20 mg total) by mouth at bedtime. [facility] prescribes meds Active hydrOXYzine pamoate (VISTARIL) 25 mg capsule Take 1 capsule (25 mg total) by mouth 3 (three) times a day if needed for anxiety. [facility] prescribed smeds Active fluticasone propionate (FLONASE) 50 mcg/actuation nasal spray SPRAY 2 SPRAYS BY NASAL ROUTE DAILY 48 mL 1 5 Active meclizine (ANTIVERT) 12.5 mg tablet TAKE 1 TABLET BY MOUTH DAILY NEEDED FOR DIZZINESS 30 tablet 1 5 Active acetaminophen (TYLENOL 8 HOUR) 650 mg 8 hr tablet Take 1 tablet (650 mg total) by mouth every 8 (eight) hours if needed. 4 Active prazosin (MINIPRESS) 2 mg capsule Take 1 capsule (2 mg total) by mouth at bedtime. at bedtime 4 Active insulin glargine,hum.re c.anlog (Basaglar KwikPen U-100 Insulin) 100 unit/mL (3 mL) injection pen Inject 10 units SC daily at bedtime 15 mL 11 5 Active dulaglutide (Trulicity) 1.5 mg/0.5 mL pen injector injectionIndica tions:Type 2 diabetes mellitus without complication, without long-term current use of insulin ([facility] V24, [facility] V28) Inject 1.5 mg into the skin every 7 days. 2 mL 11 5 Active atorvastatin (LIPITOR) 40 mg tablet Take 1 tablet (40 mg total) by mouth 1 (one) time each day. 30 each 11 5 01/29/20 26 Active pen needle, diabetic (Alda 2nd Gen Pen Needle) 32 gauge x needle Use daily with insulin 100 each 3 5 Active Active Problems Problem Noted Date Diagnosed Date Psoriatic arthritis ([facility] V24, [facility] V28) 0 01/01/2024 Overview (06/05/2024): On multiple agents followed by rheumatology. Type 2 diabetes mellitus ([facility] V24, [facility] V 28) 05/18/2020 Hypertriglyceridemia 05/08/2019 Obstructive sleep apnea 06/27/2017 Overview (06/05/2024): [facility] Home Polysomnogram: Date 06/25/2017; AHI 84, Unclassified apneas 0; Obstructive apneas 460; Central apneas 1; Mixed apneas 2; hypopneas 153; average oxygen saturation 91% (lowest 65% with saturations <88% for 5% or more of study) Hyperlipidemia 03/28/2017 Fatty liver disease, nonalcoholic 01/01/2017 Overview (06/05/2024): Dr. Guzman Obesity (BMI 30.0-34.9) 01/01/2017 Anxiety 07/23/2013 Bipolar disorder ([facility] V24, [facility] V28) 11/2012 Overview (06/05/2024): Psychiatrist - Dr. Son Low back pain 07/23/2013 Overview (06/05/2024): Dr. Triana - in [place]; fusion of L4-L5 Encounters Date Type Department Care Team Description 04/03/2025 Telephone Pulmonolgy - [place] [address] [address] Lisset Roberts [place] [facility] [address] [address] Melissa Llamas MD from Last 3 Months Immunizations Name Administration [...] pain ; COMMENT: Dr. Triana - in [place]; fusion of L4-L5 Anxiety 07/23/2013 DX:Anxiety Fatty liver disease, nonalcoholic 01/01/2017 DX:Fatty liver disease, nonalcoholic Bipolar disorder (CMS/HCC V2 4, CMS/HCC V28) 07/23/2013 DX:Bipolar disorder ([facility]); COMMENT: Psychiatrist - Dr. Son Hyperlipidemia 03/28/2017 DX:Hyperlipidemi a Obesity (BMI 30.0-34.9) 01/01/2017 DX:Obesi ty (BMI 30.0-34.9) Obstructive sleep apnea 06/27/2017 DX:Obstr uctive sleep apnea; COMMENT: [facility] Home Polysomnogram: Date 06/25/2017; AHI 84, [...] Record ed Within the last 3 months, sabrina khan many times did you visit the emergency [...] your loved ones. For example, child care aide or elderly care for an older adult? [...] 3:30 PM EDT Office Visit Pulmonolgy - [place] [address] [phone] Melissa Llamas MD 175 [facility] [address] [place] [address] 07/22/2025 3:30 PM EST Office Visit Endocrinology [facility] [address] [place] [address] Mackenzie Hoffman PA [address] [place] [address] Health Maintenance Due Date Last Done Comments [...] Date/Time Associated Diagnosis Comments EXTERNAL CLINICAL LAB 04/14/2025 EXTERNAL CLINICAL LAB 04/13/2025 EXTERNAL DIABETIC RETINA EYE EXAM 03/27/2025 BASIC METABOLIC PANEL Routine 02/26/2025 4:18 PM EDT Type 2 diabetes mellitus without complication, without long-term current use of insulin ([facility] V24, [facility] V28) MICROALBUMIN CREATININE URINE RATIO Routine 02/26/2025 4:18 PM EDT Acute cystitis with hematuria Type 2 diabetes mellitus without complication, without long-term current use of insulin ([facility] V24, [facility] V28) Encounter for screening for cardiovascular disorders LIPID PANEL WITH REFLEX TO DIRECT LDL Routine 02/26/2025 4:18 PM EDT Encounter for screening for cardiovascular disorders HEMOGLOBIN A1C Routine 02/26/2025 4:18 PM EDT Acute cystitis with hematuria Type 2 diabetes mellitus without complication, without long-term current use of insulin ([facility] V24, [facility] V28) Encounter for screening for cardiovascular disorders PROSTATE SPECIFIC ANTIGEN SCREEN Routine 02/26/2025 4:18 PM EDT Encounter for screening for malignant neoplasm of prostate HIV 1, 2 ANTIBODY, P24 ANTIGEN WITH REFLEX TO DIFFERENTIATION Routine 02/26/2025 4:18 PM EDT Acute cystitis with hematuria Type 2 diabetes mellitus without complication, without long-term current use of insulin ([facility] V24, [facility] V28) Encounter for screening for cardiovascular disorders Encounter for screening for malignant neoplasm of prostate Encounter for screening for malignant neoplasm of colon HEPATITIS C SCREENING Routine 06/14/2023 from Last 3 Months or Most Recently Relevant to Health Maintenance Results * External clinical lab (04/14/2025) Only the most recent of2 resultswithin the time period is included. Provider [facility] BLOOD ORDERABLES Fin al Result * External Diabetic Retina Eye Exam Report (03/27/2025) Anatomical Region Laterality Modality Ultrasound us Provider [facility] IMG US PROCEDURES Final Result * Prostate specific antigen screen (02/26/2025 4:18 PM EDT) PSA 0.40 0.00 - 4.00 ng/mL LAB CHEMISTRY METHOD 02/26/2025 8:39 PM EDT [facility] Blood Venous blood specimen / Unknown Venipuncture / Unknown 02/26/2025 4:18 PM EDT 02/26/2025 4:18 PM EDT [facility] - 02/26/2025 8:39 PM EDT The [employer]aur Chemiluminescent Immunoassay is used. Results obtained with different assay methods or kits cannot be used interchangeably. Results cannot be interpreted as absolute evidence of the presence or absence of malignant disease. [facility] LAB BLOOD ORDERABLES Final R esult Performing Organization Address [facility]/ZIP Co de Phone Number [facility] [address] [place] [address], [place] [phone] * HIV 1,2 antibody, p24 antigen with reflex to differentiation (02/26/2025 4:18 PM EDT) Pathologist [facility] HIV Combo AB/AG Negative Negative LAB CHEMISTRY METHOD 02/26/2025 8:00 PM EDT [facility] Blood Venous blood specimen / Unknown Venipuncture / Unknown 02/26/2025 4:18 PM EDT 02/26/2025 4:18 PM EDT [facility] - 02/26/2025 8:00 PM EDT This assay is a 4th generation assay allowing for earlier detection of HIV infection by detecting the presence of the HIV-1 p24 antigen as well as the traditional antibodies to HIV type 1 (including group O) and type 2. Use of a 4th generation assay is the current CDC recommendation for HIV screening. Neal Go [employer] TE[employer] LAB BLOOD ORDERABLES Final R esult Performing Organization Address City/[facility]/ZIP Co de Phone Number [facility] [address] [place] [address], [place] [phone] * (ABNORMAL) Lipid panel with reflex to direct LDL (02/26/2025 4:18 PM EDT) Pathologist [facility] Cholesterol 183 0 - 200 mg/dL LAB CHEMISTRY METHOD 02/26/2025 6:48 PM EDT [facility] Triglycerides 192(H) 0 - 150 mg/dL LAB CHEMISTRY METHOD 02/26/2025 6:48 PM EDT [facility] HDL 49 >=40 mg/dL LAB CHEMISTRY METHOD 02/26/2025 6:48 PM EDT [facility] LDL Calculated 96 0 - 100 mg/dL LAB CHEMISTRY METHOD 02/26/2025 6:48 PM EDT [facility] VLDL Cholesterol Dimas 38.4 mg/dL LAB CHEMISTRY METHOD 02/26/2025 6:48 PM EDT [facility] Non HDL Chol. (LDL+VLDL) 134 <145 mg/dL LAB CHEMISTRY METHOD 02/26/2025 6:48 PM EDT [facility] Chol/HDL Ratio 3.7 0.0 - 4.4 LAB CHEMISTRY METHOD 02/26/2025 6:48 PM EDT [facility] Blood Venous blood specimen / Unknown Venipuncture / Unknown 02/26/2025 4:18 PM EDT 02/26/2025 4:18 PM EDT us Neal Go [employer] TE[employer] LAB BLOOD ORDERABLES Final R esult [facility] [address] [place] [address], * Microalbumin creatinine urine ratio (02/26/2025 4:18 PM EDT) Creatinine, Urine 373.0 mg/dL LAB CHEMISTRY METHOD 02/26/2025 7:51 PM EDT [facility] Comment:Results verified by repeat testing Microalb, Ur 23.0 0.0 - 29.0 mg/L LAB CHEMISTRY METHOD 02/26/2025 7:51 PM EDT [facility] Microalb/Creat Ratio 6 <30 mg/g creat LAB CHEMISTRY METHOD 02/26/2025 7:51 PM EDT [facility] Urine Urine specimen obtained by clean catch procedure / Unknown Non-blood Collection / Unknown 02/26/2025 4:18 PM EDT 02/26/2025 4:18 PM EDT Neal Go [employer] TE[employer] LAB URINE ORDERABLES Final R esult Performing Organization Address [facility]/ZIP Co de Phone Number [facility] [address] [place] [address], [place] [phone] * Hemoglobin A1c (02/26/2025 4:18 PM EDT) Pathologist [facility] Hemoglobin A1C 5.8 <6.5 % LAB CHEMISTRY METHOD 02/26/2025 9:52 PM EDT [facility] Mean Bld Glu Estim. 120 mg/dL LAB CHEMISTRY METHOD 02/26/2025 9:52 PM EDT [facility] Blood Venous blood specimen / Unknown Venipuncture / Unknown 02/26/2025 4:18 PM EDT 02/26/2025 4:18 PM EDT Neal Go ESL TEACHER LAB BLOOD ORDERABLES Final R esult Performing Organization Address [facility] Co de Phone Number [facility] [address] [place] [address], [place] [phone] * Basic metabolic panel (02/26/2025 4:18 PM EDT) Sodium 140 133 - 145 mmol/L LAB CHEMISTRY METHOD 02/26/2025 6:48 PM EDT [facility] Potassium 3.7 3.5 - 5.5 mmol/L LAB CHEMISTRY METHOD 02/26/2025 6:48 PM EDT [facility] Chloride 106 96 - 110 mmol/L LAB CHEMISTRY METHOD 02/26/2025 6:48 PM EDT [facility] CO2 28 21 - 32 mmol/L LAB CHEMISTRY METHOD 02/26/2025 6:48 PM EDT [facility] Anion Gap 6 3 - 11 LAB CHEMISTRY METHOD 02/26/2025 6:48 PM EDT [facility] Glucose 84 70 - 100 mg/dL LAB CHEMISTRY METHOD 02/26/2025 6:48 PM EDT [facility] BUN 13 5 - 25 mg/dL LAB CHEMISTRY METHOD 02/26/2025 6:48 PM EDT [facility] Creatinine 1.00 0.70 - 1.30 mg/dL LAB CHEMISTRY METHOD 02/26/2025 6:48 PM EDT [facility] eGFR 93 >=60 mL/min/1. 73m2 LAB CHEMISTRY METHOD 02/26/2025 6:48 PM EDT [facility] Comment:Calculation based on the Chronic Kidney Disease Epidemiology Collaboration (CKD-EPI) equation refit without adjustment for race. BUN/Creatinine Ratio 13.0 LAB CHEMISTRY METHOD 02/26/2025 6:48 PM EDT [facility] Calcium 9.0 8.5 - 10.5 mg/dL LAB CHEMISTRY METHOD 02/26/2025 6:[address] [facility] Blood Venous blood specimen / Unknown Venipuncture / Unknown 02/26/2025 4:18 PM EDT 02/26/2025 4:18 PM EDT us Mackenzie ROBERTSON LAB BLOOD ORDERABLES Final Result [facility] [address] [place] [address], * Hepatitis C Screening (06/14/2023) Pathologist [facility] Hepatitis C Screening abstracted us Historical Provider HEALTH MAINTENANCE Final Result from Last 3 Months or Most Recently Relevant to Health Maintenance Insurance MEDICARE [facility] Member Subscriber Plan / Payer (Ef fective 2025-Present) Name:RONNI ANTHONY Relation to Subscriber:Self Name:Ronni Anthony Payer ID:[id number] Group ID:[id number] Type:Not on file Address: [address] [place] [address] Care Teams Occasional Caregiver Relationship Specialty Start Date End Date Mirlande Dean MD [address] [place] [address] PCP - General Internal Medicine 11/02/17
--- OUTSIDE RECORDS SUMMARY | 2025-05-06 14:13 | XMS_ITS | Encounter Summary ---
Author Organization [facility] Address [address] [place] [address] Care Team Providers Care Sign Maintenance Name Role Phone Unavailable Primary Care Provider Unavailabl e Encounter Details Date Type Department Care Team (Late st Contact Info) Description 05/01/2017 Scanned Document [facility] at [address] [place] [address] Daniel Morgan, [address] [id number] Social History Tobacco Use Types Packs/Day Years [...]
--- OUTSIDE RECORDS SUMMARY | 2025-05-06 14:13 | XMS_ITS | Encounter Summary ---
Author Organization [facility] Address [address] [place] [address] Care Team Providers Care Sprigger Name Role Phone Unavailable Primary Care Provider Unavailabl e Encounter Details Date Type Department Care Team (Late st Contact Info) Description 05/01/2017 Scanned Document [facility] [place] at [address] [place] [address] Daniel Morgan, [address] [id number] Social History Tobacco Use Types Packs/Day Years [...]
--- OUTSIDE RECORDS SUMMARY | 2025-05-06 14:13 | XMS_ITS | Clinical Summary ---
Author Organization [facility] Address [address] [place] [address] Care Team Providers Care Web Designer Developer Name Role Phone Unavailable Primary Care [...]
== END 2025-05-06 11:51 | disposition home or self-care (01) ==
LOC: HO.RHES 11:05
PROVIDERS: PCP Internal Medicine; Visit Provider Student in an Organized Health Care Education/Training Program
DX: L40.50 Arthropathic psoriasis, unspecified (principal); M15.9 Polyosteoarthritis, unspecified; M72.2 Plantar fascial fibromatosis; Z79.631 Long term (current) use of antimetabolite agent; Z51.81 Encounter for therapeutic drug level monitoring; Z79.620 Long term (current) use of immunosuppressive biologic
CPT/HCPCS: 99214; G2211

== ENCOUNTER → 2025-05-06 11:04 | Outpatient (BNVA) | payer OTHER, SELFPAY | PROVIDERS: PCP Internal Medicine; Visit Provider Student in an Organized Health Care Education/Training Program | DX: L40.50 Arthropathic psoriasis, unspecified (principal); M15.9 Polyosteoarthritis, unspecified; M72.2 Plantar fascial fibromatosis; Z51.81 Encounter for therapeutic drug level monitoring; Z79.631 Long term (current) use of antimetabolite agent; Z79.620 Long term (current) use of immunosuppressive biologic; Z79.899 Other long term (current) drug therapy | CPT/HCPCS: 99212 ==

== ENCOUNTER 2025-06-26 11:33 | Outpatient (REF) | payer OTHER, SELFPAY ==
--- NOTE | ~2025-06-26 | XR_ITS ---
XR KNEE GRUPO 3V HISTORY: Polyarthritis, unspecified. COMPARISON: None. TECHNIQUE: AP view bilateral knees standing, lateral and patellofemoral views bilateral knees. FINDINGS: RIGHT KNEE: No fracture, dislocation, or suspicious bone lesion. Joint spaces are normal in all 3 compartments. Normal patellar alignment. No abnormal patellar tilt. No evidence of joint effusion. Soft tissues appear normal. LEFT KNEE: No fracture, dislocation, or suspicious bone lesion. Joint spaces are normal in all 3 compartments. Normal patellar alignment. No abnormal patellar tilt. No evidence of joint effusion. Soft tissues appear normal. XR/XR Knee Grupo 3V IMPRESSION: 1. Normal bilateral knees. Electronically signed by: Brando Lal MD 06/26/2025 12:32 PM SOFÍA
--- NOTE | ~2025-06-26 | XR_ITS ---
EXAMINATION: X-ray bilateral elbow CLINICAL INFORMATION: Polyarthritis COMPARISON: None TECHNIQUE: Right elbow 3 views. Left elbow 3 views. FINDINGS: Right elbow: No fracture or dislocation. No significant joint space narrowing or marginal osteophytes. Small olecranon process insertional enthesopathy. No effusion. No osseous erosion. No abnormal soft tissue calcification. Left elbow: No fracture or dislocation. No significant joint space narrowing or marginal osteophytes. No effusion. Small olecranon process enthesopathy. No osseous erosion. No abnormal soft tissue calcification. XR/XR Elbow Grupo min 3V IMPRESSION: No acute findings Electronically signed by: Shola Coyle MD 06/26/2025 03:24 PM EST
--- OUTSIDE RECORDS SUMMARY | 2025-06-26 13:59 | XMS_ITS | Clinical Summary ---
Author Organization [address] [facility] Address [address] [place] [address] Phone Care Team Providers Care Screen Printing Stencil Preparer Name Role Phone Mirlande Dean MD Primary Care Provider [phone] Allergies Active Allergy Reactions Criticality Noted Date Comments Other 03/28/2017 Seasonal Allergies Medications amphetamine-de xtroamphetamin e (ADDERALL) 15 mg tablet Take 1 tablet (15 mg total) by mouth 1 (one) time each day. [facility] prescribed meds Active adalimumab (Humira,CF, Pen) 40 mg/0.4 mL pen [facility] prescribed meds Active methotrexate 2.5 mg tablet [facility] prescribed meds Active traZODone (DESYREL) 50 mg tablet Take 2 tablets (100 mg total) by mouth 1 (one) time each day in the evening. [facility] prescribed meds Active blood sugar diagnostic (FreeStyle Lite Strips) test strip Use to test blood sugar once daily 01/09/20 23 Active folic acid (FOLVITE) 1 mg tablet Take 1 tablet (1,000 mcg total) by mouth 1 (one) time each day. [facility] prescribes meds Active blood-glucose meter (BLOOD GLUCOSE MONITORING MISC) Use to test blood sugars once daily 06/14/20 22 Active FREESTYLE LANCETS MISC Use to test blood sugars once daily 06/13/20 22 Active fenofibrate (TRICOR) 145 mg tablet Take 145 mg by mouth daily. 03/13/20 22 Active ARIPiprazole (ABILIFY) 10 mg tablet Take 2 tablets (20 mg total) by mouth at bedtime. [facility] prescribes meds Active hydrOXYzine pamoate (VISTARIL) 25 mg capsule Take 1 capsule (25 mg total) by mouth 3 (three) times a day if needed for anxiety. [facility] prescribed smeds Active meclizine (ANTIVERT) 12.5 mg tablet TAKE [...] SC daily at bedtime 15 mL 11 01/21/20 25 Active dulaglutide (Trulicity) 1.5 mg/0.5 mL pen injector injectionIndic ations:Type 2 diabetes mellitus without complication, without long-term current use of insulin ([facility] V24, [facility] V28) Inject 1.5 mg into the skin every 7 days. 2 mL 01/21/20 25 Active atorvastatin (LIPITOR) 40 mg tablet Take 1 tablet (40 mg total) by mouth 1 (one) time each day. 30 each 01/29/20 25 026 Active pen needle, diabetic (Alda 2nd Gen Pen Needle) 32 gauge x 5/32 needle Use daily with insulin 100 each 3 04/02/20 25 Active fluticasone propionate (FLONASE) 50 mcg/actuation nasal spray SPRAY 2 SPRAYS BY NASAL ROUTE DAILY 48 mL 05/28/20 25 Active fluticasone propionate (FLONASE) 50 mcg/actuation nasal spray SPRAY 2 SPRAYS BY NASAL ROUTE DAILY 48 mL 1 12/04/19 25 025 Discontinued Active Problems Problem Noted Date Diagnosed Date Psoriatic arthritis ([facility] V24, [facility] V28) 0 01/01/2024 Overview (06/05/2024): On multiple agents followed by rheumatology. Type 2 diabetes mellitus ([facility] V24, [facility] V 28) 05/18/2020 Hypertriglyceridemia 05/08/2019 Obstructive sleep apnea 06/27/2017 Overview (06/05/2024): [facility] Home Polysomnogram: Date 06/25/2017; AHI 84, Unclassified apneas 0; Obstructive apneas 460; Central apneas 1; Mixed apneas 2; hypopneas 153; average oxygen saturation 91% (lowest 65% with saturations <88% for 5% or more of study) Hyperlipidemia 03/28/2017 Fatty liver disease, nonalcoholic 01/01/2017 Overview (06/05/2024): Dr. Guzman Obesity (BMI 30.0-34.9) 01/01/2017 Anxiety 07/23/2013 Bipolar disorder ([facility] V24, [facility] V28) 11/2012 Overview (06/05/2024): Psychiatrist - Dr. Son Low back pain 07/23/2013 Overview (06/05/2024): Dr. Triana - in [place]; fusion of L4-L5 Encounters Date Type Department Care Team Description 05/28/2025 Telephone Adult Medicine [address] [id number] Mirlande Dean MD 04/03/2025 Telephone Pulmonology - [address] [place] [address] Lisset Roberts MA from Last 3 Months Immunizations Immunization Administration Dates Next Due Influenza Quadravalent, MDCK [...] pain ; COMMENT: Dr. Triana - in [place]; fusion of L4-L5 Anxiety 07/23/2013 DX:Anxiety Fatty liver disease, nonalcoholic 01/01/2017 DX:Fatty liver disease, nonalcoholic Bipolar disorder (CMS/HCC V2 4, CMS/HCC V28) 07/23/2013 DX:Bipolar disorder (HCC); COMMENT: Psychiatrist - Dr. Son Hyperlipidemia 03/28/2017 DX:Hyperlipidemi a Obesity (BMI 30.0-34.9) 01/01/2017 DX:Obesi ty (BMI 30.0-34.9) Obstructive sleep apnea 06/27/2017 DX:Obstr uctive sleep apnea; COMMENT: [facility] Home Polysomnogram: Date 06/25/2017; AHI [...] care for your loved ones. For example, registered nurse maternal child or elderly care for an older adult? [...] Date Recorded What is your living situation? Unrecognized valu e 07/23/2024 Sex and Gender Information Value Date Recorded [...] Care Team (Late st Contact Info) Description 07/22/2025 3:30 PM EST Office Visit Endocrinology - [place] [address] [place] [address] Mackenzie Hoffman PA [address] [place] [address] Health Maintenance Due Date Last Done Comments Colorectal Cancer Screening: Colonoscopy 1980 Medicare Annual Wellness Visit 07/28/2022 DTaP,Tdap,and Td [...] Screening (Lipid Panel) 02/26/2030 02/26/2025, 07/25/2024, 10/20/2022 RSV Immunization Adult Patients (1 - 1-dose 75+ series) 2053 COVID-19 Vaccine Discontinued 08/05/2021, 06/22/2021 Hepatitis C [...] 04/13/2025 EXTERNAL DIABETIC RETINA EYE EXAM 03/27/2025 HIV 1, 2 ANTIBODY, P24 ANTIGEN WITH REFLEX TO DIFFERENTIATION Routine 02/26/2025 4:18 PM EDT Acute cystitis with hematuria Type 2 diabetes mellitus without complication, without long-term current use of insulin ([facility] V24, [facility] V28) Encounter for screening for cardiovascular disorders Encounter for screening for malignant neoplasm of prostate Encounter for screening for malignant neoplasm of colon MICROALBUMIN CREATININE URINE RATIO Routine 02/26/2025 4:18 PM EDT Acute cystitis with hematuria Type 2 diabetes mellitus without complication, without long-term current use of insulin ([facility] V24, [facility] V28) Encounter for screening for cardiovascular disorders BASIC METABOLIC PANEL Routine 02/26/2025 4:18 PM EDT Type 2 diabetes mellitus without complication, without long-term current use of insulin ([facility] V24, [facility] V28) HEMOGLOBIN A1C Routine 02/26/2025 4:18 PM EDT Acute cystitis with hematuria Type 2 diabetes mellitus without complication, without long-term current use of insulin ([facility] V24, [facility] V28) Encounter for screening for cardiovascular disorders LIPID PANEL WITH REFLEX TO DIRECT LDL Routine 02/26/2025 4:18 PM EDT Encounter for screening for cardiovascular disorders HEPATITIS C SCREENING Routine 06/14/2023 from Last 3 Months or Most Recently Relevant to Health Maintenance Results * External clinical lab (04/14/2025) Only the most recent of2 resultswithin the time period is included. Provider [facility] LAB BLOOD ORDERABLES Fin al Result * External Diabetic Retina Eye Exam Report (03/27/2025) Anatomical Region Laterality Modality Ultrasound Provider [facility] IMG US PROCEDURES Final Result * HIV 1,2 antibody, p24 antigen with reflex to differentiation (02/26/2025 4:18 PM EDT) HIV Combo AB/AG Negative Negative LAB CHEMISTRY METHOD 02/26/2025 8:00 PM EDT [facility] Blood Venous blood specimen / Unknown Venipuncture / Unknown 02/26/2025 4:18 PM EDT 02/26/2025 4:18 PM EDT Narrative [facility] - 02/26/2025 8:00 PM EDT This assay is a 4th generation assay allowing for earlier detection of HIV infection by detecting the presence of the HIV-1 p24 antigen as well as the traditional antibodies to HIV type 1 (including group O) and type 2. Use of a 4th generation assay is the current CDC recommendation for HIV screening. Neal Go DICE TABLE PERSON LAB BLOOD ORDERABLES Final R esult Performing Organization Address City/[facility]/ZIP Co de Phone Number [facility] [address] [place] [address], [place] [phone] * (ABNORMAL) Lipid panel with reflex to direct LDL (02/26/2025 4:18 PM EDT) Cholesterol 183 0 - 200 mg/dL LAB CHEMISTRY METHOD 02/26/2025 6:48 PM EDT [facility] Triglycerides 192(H) 0 - 150 mg/dL LAB CHEMISTRY METHOD 02/26/2025 6:48 PM EDT [facility] HDL 49 >=40 mg/dL LAB CHEMISTRY METHOD 02/26/2025 6:48 PM EDT [facility] LDL Calculated 96 0 - 100 mg/dL LAB CHEMISTRY METHOD 02/26/2025 6:48 PM EDT [facility] VLDL Cholesterol Dimas 38.4 mg/dL LAB CHEMISTRY METHOD 02/26/2025 6:48 PM EDT [facility] Non HDL Chol. (LDL+VLDL) 134 <145 mg/dL LAB CHEMISTRY METHOD 02/26/2025 6:48 PM EDT [facility] Chol/HDL Ratio 3.7 0.0 - 4.4 LAB CHEMISTRY METHOD 02/26/2025 6:48 PM EDT [facility] Blood Venous blood specimen / Unknown Venipuncture / Unknown 02/26/2025 4:18 PM EDT 02/26/2025 4:18 PM EDT Neal Go DICE TABLE PERSON LAB BLOOD ORDERABLES Final R esult Performing Organization Address City/[facility]/ZIP Co de Phone Number [facility] [address] [place] [address], [place] [phone] * Microalbumin creatinine urine ratio (02/26/2025 4:18 PM EDT) Creatinine, Urine 373.0 mg/dL LAB CHEMISTRY METHOD 02/26/2025 7:51 PM EDT [facility] Comment:Results verified by repeat testing Microalb, Ur 23.0 0.0 - 29.0 mg/L LAB CHEMISTRY METHOD 02/26/2025 7:51 PM EDT [facility] Microalb/Creat Ratio 6 <30 mg/g creat LAB CHEMISTRY METHOD 02/26/2025 7:51 PM EDT [facility] Urine Urine specimen obtained by clean catch procedure / Unknown Non-blood Collection / Unknown 02/26/2025 4:18 PM EDT 02/26/2025 4:18 PM EDT Neal Go DICE TABLE PERSON LAB URINE ORDERABLES Final R esult Performing Organization Address [facility] Co de Phone Number [facility] [address] [place] [address], [place] [phone] * Hemoglobin A1c (02/26/2025 4:18 PM EDT) Hemoglobin A1C 5.8 <6.5 % LAB CHEMISTRY METHOD 02/26/2025 9:52 PM EDT [facility] Mean Bld Glu Estim. 120 mg/dL LAB CHEMISTRY METHOD 02/26/2025 9:52 PM EDT [facility] Blood Venous blood specimen / Unknown Venipuncture / Unknown 02/26/2025 4:18 PM EDT 02/26/2025 4:18 PM EDT Neal Go DICE TABLE PERSON LAB BLOOD ORDERABLES Final R esult Performing Organization Address [facility]/ZIP Co de Phone Number [facility] [address] [place] [address], * Basic metabolic panel (02/26/2025 4:18 PM EDT) Sodium 140 133 - 145 mmol/L LAB CHEMISTRY METHOD 02/26/2025 6:48 PM EDT [facility] Potassium 3.7 3.5 - 5.5 mmol/L LAB CHEMISTRY METHOD 02/26/2025 6:48 PM EDT [facility] Chloride 106 96 - 110 mmol/L LAB CHEMISTRY METHOD 02/26/2025 6:48 PM EDT [facility] CO2 28 21 - 32 mmol/L LAB CHEMISTRY METHOD 02/26[facility]2025 6:[facility] Anion Gap 6 3 - 11 LAB CHEMISTRY METHOD 02/26/2025 6:48 PM [facility] Glucose 84 70 - 100 mg/dL LAB CHEMISTRY METHOD 02/26/2025 6:48 PM [facility] BUN 13 5 - 25 mg/dL LAB CHEMISTRY METHOD 02/26/2025 6:48 PM [facility] Creatinine 1.00 0.70 - 1.30 mg/dL LAB CHEMISTRY METHOD 02/26/2025 6:48 [facility] eGFR 93 >=60 mL/min/1. 73m2 LAB CHEMISTRY METHOD 02/26/2025 6:48 PM [facility] Comment:Calculation based on the Chronic Kidney Disease Epidemiology Collaboration (CKD-EPI) equation refit without adjustment for race. BUN/Creatinine Ratio 13.0 LAB CHEMISTRY METHOD 02/26/2025 6:48 PM [facility] Calcium 9.0 8.5 - 10.5 mg/dL LAB CHEMISTRY METHOD 02/26/2025 6:48 PM [facility] Blood Venous blood specimen / Unknown Venipuncture / Unknown 02/26/2025 4:18 PM EDT 02/26/2025 4:18 PM EDT us Mackenzie ROBERTSON LAB BLOOD ORDERABLES Final Result [facility] [address] [place] [address], [place] [phone] * Hepatitis C Screening (06/14/2023) [facility] Hepatitis C Screening abstracted us Historical Provider HEALTH MAINTENANCE Final Result from Last 3 Months or Most Recently Relevant to Health Maintenance Insurance MEDICARE [employer] MEDICARE Member Subscriber Plan / Payer (Ef fective 2025-Present) Name:RONNI ANTHONY Relation to Subscriber:Self Name:Ronni Anthony Payer ID:[id number] Group ID:[id number] Type:Not on file Address: [address] [place] [phone] Care Teams Screen Printing Stencil Preparer Relationship Specialty Start Date End Date Mirlande Dean MD [address] [place] [address] PCP - General Internal Medicine 11/02/17
--- OUTSIDE RECORDS SUMMARY | 2025-06-26 13:59 | XMS_ITS | Data Portability ---
Author Organization [facility] [address] Address [address] [place] [address] Care Team Providers Care Dianetic Counselor Name Role Phone [facility] Prim [place] Care Provider Assessment No assessment recorded. Plan of Treatment Reminders Order Date Submit Date Provider Last Modified By Organization Details Last Modified Time Details Appointments None recorded. Lab rapid strep group A, throat 2022 023 [email or web address] [id number], [address] [place] [address], [phone], 3 16:03:23 Referral None recorded. Procedures None recorded. Surgeries None recorded. Imaging None recorded. Medication Orders Florastor 250 mg capsule 2022 023 [facility]/Pharmacy #[id number], [address] [facility] [place], [address], 3 16:03:23 ibuprofen 800 mg tablet 2022 023 [id number] [address] [facility] [place], [address], 3 16:03:22 cephalexin 500 mg capsule 2022 023 [id number], [address] [place], [address], 3 17:47:11 Allergy Relief (fluticason e) 50 mcg/actuati on nasal spray,suspe nsion 2021 [facility]/Pharmacy #[id number], [address] [facility] [place], [address], 18:26:34 loratadine 10 mg tablet [email or web address]/Pharmacy #0693, [address] [place], [address], 3 15:43:49 Ciloxan 0.3 % eye drops [address]/Pharmacy #0693, [address] [place], [address], 3 15:41:35 Patient TargetsNo targets recorded. Patient Instructions Encounter Date Encounter Id Patient Instructions Last Modified By Organization Details Last Modified Time 07/23/2022 [id number] eustachian tube problems: care instructions [email or web address] Not available 07/23/2022 18:26:30 Based on your [...] contact us with any questions or concerns. [email or web address] Not available 07/23/2022 18:25:58 05/16/2023 [id number] sore throat: car e instructions Not available [...] if you have any questions or concerns. [email or web address] Not available 05/16/2023 16:04:52 Patient will ret urn on Sunday if no improvement. Pt agrees with plan [email or web address] Not available 05/16/2023 16:08:08 Reason for Referral None Reported. Results Created Date Observation Date Name Description Value Unit Range Abnormal Flag Note LastModifiedBy Organization Detail LastModifiedTime 05/16/20 23 05/16/2023 rapid strep group A, throa t Unknown Analyte positi ve Not Available [id number]_hadle yr [facility] [address] [place], [address], 05/16/2023 15:45:19 05/16/20 23 05/16/2023 rapid strep group A, throa t Unknown Analyte yes Not Available [id number] dumont [facility] [address] [place], [address], 05/16/2023 15:45:19 Result Notes None recorded. Problems Name Problem SNOMED Code Status Onset Date Resolution Date Notes Provider Name and Address Organization Details Recorded Time Diabetes mellitus 07721390 Active CIERA CHAD CARRIZALES null, [place] - [facility] 2 17:57:10 Chronic back pain 212546275 Active CIERA CHAD CARRIZALES null, [place] - [facility] 2 17:57:21 Hypercholester olemia 01477065 Active 2022 JAMILA BABB null, [place] - [facility] 3 15:44:40 Anxiety 81218179 Active 2022 JAMILA BABB null, PA - [facility] 3 15:44:54 Problem Notes None recorded. Procedures Surgical History Date Name Laterality Status Provider Name and Address Organization Details Recorded Time lumbar spinal fusion completed CIERA FLOODMADISYN PA - [facility] 07/23/2022 17:57:40 Imaging [...] Not Available Not Available No t Available Lantus Solostar U-100 Insulin 100 unit/mL (3 mL) subcutaneou [...] blood by Pulse oximetry Heart rate Systolic And Diastolic Provider Name and Address Organization Details Last Updated DateTime 3 167.64 cm 33.6 kg/m2 54462.2 1 g 18 /min 97.5 [degF] 98 % 98 % 82 /min 107/70 mm[Hg] JAMILA ROBERTSON - [facility] 3 15:47:56 Date Recorded Body height Body mass index (BMI) Body weight Pain severity - 0-10 verbal numeric rating [Score] - Reported Respiratory rate Oxygen saturation Oxygen saturation in Arterial blood by Pulse oximetry Heart rate Body temperature Systolic And Diastolic Provider Name and Address Organization Details Last Updated DateTime 2 167.64 cm 33.9 kg/m2 34365.4 g 0 18 /min 98 % 98 % 95 /min 98.3 [degF] 130/76 mm[Hg] CIERA ROBERTSON - [facility] 2 18:01:01 Social History Question Answer Notes LastModified by Organizat ion Details LastModified Time Tobacco Smoking Status Current Every Day Smoker CIERA moore PA - [facility] 07/23/2022 17:58:45 Have You Had Direct Contact, Or Contact During Intimacy, With Monkeypox Rash, Scabs, Or Body Fluids From A Person With Monkeypox? No Information not available 07/23/2022 How Much Tobacco Do You Smoke? 0.25 PPD Information not available 07/23/2022 Have You Recently Traveled Abroad? No Information not available 07/23/2022 Sex: Unknown Functional Status Question Answer Note LastModified by Organizat ion Details LastModified Time Do you use any illicit or recreational drugs? No Information not available 07/23/2022 Do you or have you ever used any other forms of tobacco or nicotine? No Information not available 07/23/2022 What is your level of alcohol consumption? None Information not available 07/23/2022 Mental Status None recorded. Family History Relationship Description Onset Age of this Age Resolved Age Notes LastModified by Organization Details LastModified Time Mother Fibromyalgia Not a vailable 07/23/2022 17:58:08 Maternal Uncle Diabetes mellitus Not available 11/2021 17:58:22 Medical History No medical history recorded. Past Encounters Encounter ID Performer Location Encounter Start Date Encounter Closed Date Diagnosis/Indication Diagnosis SNOMED-CT Code Diagnosis ICD10 Code Diagnosis IMO Codes Diagnosis Note [id number] [facility] [address] [place] [phone] 07/23/2022 17:01:57 07/23/2022 18:29:23 Acute conjunctivitis of right eye 8177142567 72937 H10.31 Dysfunctio n of right eustachian tube 0120548446 580111 H69.91 [id number] MARCELO CENTENO [address] [place] [address] 05/16/2023 14:42:40 05/16/2023 16:05:34 Sore throat 133301802 J02.9 Acute tonsillitis 593801 08 J03.90 Health Concerns Section Related Observation LastModified by Organization Detai ls LastModified Time None Recorded Concern Status LastModified by Organization Details LastModified Time None Recorded Advance Directives Directive None Recorded Payers Insurance Date Sequence Insurance Name Policy Number Policy Bain Covered Member ID Bain Member ID Guarantor Name 05/16/2023 1 [facility] (MEDICAID REPLACEMENT - HMO) FLORA Paul [id number] Ronni Paul Notes Date Note Type Note Provider Name and Address Organization Details Recorded Time 07/23/2022 text/html Eye problemsRepo rted by PatientHPIFor eye symptoms, patient reportsredness,dischar ge, anditchingbut reportsno sensitivity to light,no pain in the eyes, andno blurred vision. For severity, patient reportsmild. For onset/timing, patient [id number]. For modifying factors, (does not wear contacts).Worse in the AM - eyes crusted. Constant yellow discharge. Left eye not affected. No pressure behind eye. No FB feeling. Does not wear contacts. Ear Pain Brief HPIReported by PatientHPIFor location, patient reportsright. For onset/timing, patient reportsstarted 1months ago. For quality, patient reportsno itching,no discharge from the ears, andno burning. For severity, patient reportsno feverandno interference with sleep. For context, patient reportsno recent uri,no recent trauma,no recent ear infection, andnon-smoker. For alleviating factors, patient reportsnsaids(ibuprofe n not helping.). For associated symptoms, patient reportsno cough,no discharge from ear,no nasal congestion,no sore throat, andno tinnitus.ROS as noted in the HPI MARCELO BILLY [address] [place], [address], [place] - [facility] 07/23/2022 18:32:11 05/16/2023 text/html Sore throatRepor dk by [email or web address] y.o male pt presents with sore throat and swollen lymph nodes since Sunday. Pain is getting worse and radiating to his left and right ear. Pt is speaking and swallowing normal. MARCELO CENTENO [address], [phone], [place] - [facility] 05/16/2023 17:47:12
--- OUTSIDE RECORDS SUMMARY | 2025-06-26 13:59 | XMS_ITS | Encounter Summary ---
Author Organization [facility] Address [address] [place] [address] Care Team Providers Care Senior Manager Asset Protection Name Role Phone Unavailable Primary Care Provider Unavailabl e Encounter Details Date Type Department Care Team (Late st Contact Info) Description 05/01/2017 Scanned Document [facility] at [address] [place] [address] Daniel Morgan, [address] [address] Social History Tobacco Use Types [...]
--- OUTSIDE RECORDS SUMMARY | 2025-06-26 13:59 | XMS_ITS | Clinical Summary ---
Author Organization [facility] Address [address] [place] [address] Care Team Providers Care Information Technology Administrator Name Role Phone Unavailable Primary Care Provider [...]
--- OUTSIDE RECORDS SUMMARY | 2025-06-26 13:59 | XMS_ITS | Encounter Summary ---
Author Organization [facility] Address [address] [place] [address] Care Team Providers Care [employer] Director Name Role Phone Unavailable Primary Care Provider Unavailabl e Encounter Details Date Type Department Care Team (Late st Contact Info) Description 05/01/2017 Scanned Document [facility] at [address] [place] [address] Daniel Morgan, [address] [address] Social History Tobacco Use Types [...]
--- OUTSIDE RECORDS SUMMARY | 2025-06-26 13:59 | XMS_ITS | Encounter Summary ---
Author Organization [facility] Address [address] [place] [address] Care Team Providers Care Tax Appraiser Name Role Phone Unavailable Primary Care Provider Unavailabl e Encounter Details Date Type Department Care Team (Late st Contact Info) Description 05/01/2017 Scanned Document [facility] at [address] [place] [address] Daniel Morgan, [address] [address] Social History Tobacco Use Types [...]
--- OUTSIDE RECORDS SUMMARY | 2025-06-26 13:59 | XMS_ITS | Clinical Summary ---
Author Organization [facility] Address [address] [place] [address] Care Team Providers Care Landfill Grader Name Role Phone Unavailable Primary Care Provider [...]
--- OUTSIDE RECORDS SUMMARY | 2025-06-26 13:59 | XMS_ITS | Encounter Summary ---
Author Organization [employer] Address [address] [place] [address] Care Team Providers Care Rotary Drill Operator Name Role Phone Mirlande Dean MD Primary Care Provider [phone] Reason for Visit * Reason Onset Date Comments Referral 05/28/2025 Error 05/28/2025 Encounter Details Date Type Department Care Team ([facility] st Contact Info) Description 05/28/2025 Telephone Adult Medicine [facility] [address] [place] [phone] Mirlande Dean MD [address] [place] [address] Social History Tobacco Use Types Packs/Day Years [...] care for your loved ones. For example, childhood development teacher or elderly care for an older adult? [...] as of this encounter Plan of Treatment Upcoming Encounters Date Type Department Care Team (Late st Contact Info) Description 07/22/2025 3:30 PM EST Office Visit Endocrinology - [address] [address] Mackenzie Hoffman PA [address] [place] [address] documented as of this encounter Visit Diagnoses Not on filedocumented in this encounter Additional Health Concerns Assessment Noted Time PHQ-9 Depression Total Score: 14 025 12:26 PM EDT documented as of this encounter Care Teams Rotary Drill Operator Relationship Specialty Start Date End Date Mirlande Dean MD [address] [place] [address] PCP - General Internal Medicine 11/02/17 documented as of this encounter
== END 2025-06-26 11:34 | disposition home or self-care (01) ==
LOC: HO.XRAY 11:33
PROVIDERS: PCP Internal Medicine; Visit Provider Student in an Organized Health Care Education/Training Program
DX: M15.9 Polyosteoarthritis, unspecified (principal)
CPT/HCPCS: 73080; 73562

== ENCOUNTER → 2025-06-26 11:39 | Outpatient (BNV) | payer OTHER, SELFPAY | PROVIDERS: PCP Internal Medicine; Visit Provider Radiology Diagnostic Radiology | DX: M15.9 Polyosteoarthritis, unspecified (principal) | CPT/HCPCS: 73080; 73562 ==

== ENCOUNTER 2025-07-22 15:23 | Outpatient (AMB) | payer OTHER, SELFPAY ==
--- NOTE | 2025-07-22 15:31 | MHC.OFFVIS ---
Vital Signs 07/22/25 15:33 Height 5 ft 6 in Weight 200 lb BMI 32.3 Intake Visit Reasons: OV- LT elbow ulnar nerve decomp 01/31/24 AR f/u Intake Note: Ronni is a 45 year old male who presents today as a follow up for his left elbow ulnar nerve decomp 01/31/24 AR. At today's visit he states that for the past week he has noticed that the left forearm is having quick spams and cramping. He noted that the pain does not radiate into the fingers. He added that he does at home exercises to help relieve the pain but the cramping sensation keeps occurring. Allergies Seasonal Allergies Allergy (Unknown, Verified 05/06/25 11:14) Unknown HPI HPI OV- LT elbow ulnar nerve decomp 01/31/24 AR f/u: Details: Ronni is a 45 year old right hand dominant man who returns with a new complaint of left forearm cramping He complains of painful cramping & spasming of his left forearm for ~1 month now. He denies any pain radiating into his fingers. He tries to manage this with at home exercises He denies any cramping in his right arm, or his other extremities. He denies any known injuries. He says he has to move at home after 2 back surgeries, so he tries to stay active in easy ways, including using light resistance bands for exercise [facility] Medical History Hepatitis B Recurrent erosion of cornea, right eye Psoriasis Hyperlipidemia Anxiety Bipolar 1 disorder Low back pain Fatty liver Obesity SAGE (obstructive sleep apnea) Hypertriglyceridemia Diabetes Surgical History History of back surgery History of lumbar fusion Family History Mother Diverticulosis Fibromyalgia Arthritis Thyroid disease Family/Other Lupus Social History Household Members: Significant Other and Children Alcohol intake: current Alcohol intake frequency: holidays/special occasions only Patient Tobacco Use Status: Current everyday Tobacco user Tobacco use type: Smokeless Tobacco Cigarettes Per Day: 6 Current occupational status: unemployed Current occupation: right hand dominant Review of Systems Const All systems reviewed & are unremarkable except as noted in HPI and below Physical Exam Vital Signs: BMI result Body Mass Index 32.3 Const General: no acute distress and alert Orientation/consciousness: patient oriented x3 Neuro General: patient oriented x3 Extrem Other: Evaluation of Left Upper Extremity: The patient is alert, oriented, and in no acute distress Neuro: Median, Ulnar, Radial nerves motor and sensory intact and sensation is normal to the tips of all digits Vascular: Cap refill brisk ROM: He can make a fist and extend all his digits Tender over the flexor origin at the medial epicondyle Pain referred to flexor origin and medial epicondyle with resisted finger flexion, and more so with resisted wrist flexion No tenderness in the mid volar forearm Nerve Conduction Study: Moderate bilateral cubital tunnel syndrome Dr. Magana 08/01/23 Psych Appearance: grossly normal Affect: normal affect Attitude: cooperative Assessment & Plan Assessment & Plan (1) Medial epicondylitis, left elbow: Code(s): M77.02 - Medial epicondylitis, left elbow Category: Medical (2) Diabetes: Code(s): E11.9 - Type 2 diabetes mellitus without complications Category: Medical Plan Assessment & Plan: 1. Left medial epicondylitis I educated him about this condition I discussed non-operative treatment options I recommend activity modification, and he is in agreement He should limit or avoid any lifting or gripping activities, or other activities which cause him pain He will follow up prn 1. Left cubital tunnel syndrome, S/P release DOS: 01/31/24 Pre-operative symptoms intermittent, but daily, worse at night Now with normal sensation Resolved 2. Right cubital tunnel syndrome, moderate Symptoms intermittent, but daily, worse at night. No complaints today Scribed for Nabila Pugh MD by Armando Hawthorne, medical records specialist, on 07/22/25 at 3:45 PM, EST. Scribe Plan - Not visible on output: Scribed for Nabila Pugh MD by Armando Hawthorne medical records specialist, on [ ] at [ ], EST. Coding Level of Care Code Est Pt Level 3 (07801) Diagnoses Medial epicondylitis, left elbow M77.02 Diabetes E11.9
[2025-07-22 15:33] VITALS: BMI 32.3
--- OUTSIDE RECORDS SUMMARY | 2025-07-22 18:23 | XMS_ITS | Encounter Summary ---
Author Organization [facility] Address [address] [place] [address] Care Team Providers Care Yolk Spray Drier Name Role Phone Unavailable Primary Care Provider Unavailabl e Encounter Details Date Type Department Care Team (Late st Contact Info) Description 05/01/2017 Scanned Document [facility] at [address] [place] [address] Daniel Morgan, [address] [address] Social History Tobacco Use Types [...]
--- OUTSIDE RECORDS SUMMARY | 2025-07-22 18:23 | XMS_ITS | Clinical Summary ---
Author Organization [employer] [facility] Prior to 01/17/[address] [place] [address] Care Team Providers Care Hog Sticker Name Role Phone Unavailable Primary Care Provider [...]
--- OUTSIDE RECORDS SUMMARY | 2025-07-22 18:23 | XMS_ITS | Encounter Summary ---
Author Organization [facility] Address [address] [place] [address] Care Team Providers Care Machines Technician Name Role Phone Unavailable Primary Care Provider Unavailabl e Encounter Details Date Type Department Care Team (Late st Contact Info) Description 05/01/2017 Scanned Document [facility] at [address] [place] [address] Daniel Morgan, [address] [address] Social History Tobacco Use Types [...]
--- OUTSIDE RECORDS SUMMARY | 2025-07-22 18:23 | XMS_ITS | Data Portability ---
Author Organization [facility] [employer] Address [address] [place] [address] Care Team Providers Care Payroll Secretary Name Role Phone [facility] Prim romeo Care Provider Assessment No assessment recorded. Plan of Treatment Reminders Order Date Submit Date Provider Last Modified By Organization Details Last Modified Time Details Appointments None recorded. Lab rapid strep group A, throat 2022 023 [email or web address] [id number]_[facility], [address] [place] [address], [phone], 3 16:03:23 Referral None recorded. Procedures None recorded. Surgeries None recorded. Imaging None recorded. Medication Orders Florastor 250 mg capsule 2022 023 [facility]/Pharmacy #[id number], [address] [facility] [place], [address], 3 16:03:23 ibuprofen 800 mg tablet 2022 023 [id number] [address] [facility] [place], [address], 3 16:03:22 cephalexin 500 mg capsule 2022 023 [id number] [address] [place], [address], 3 17:47:11 Allergy Relief (fluticason e) 50 mcg/actuati on nasal spray,suspe nsion 2021 [facility]/Pharmacy #[id number], [address] [facility] [place], [address], 18:26:34 loratadine 10 mg tablet [email or web address]/Pharmacy #[id number], [address] [place], [address], 3 15:43:49 Ciloxan 0.3 % eye drops [address]/Pharmacy #[id number], [address] [place], [address], 3 15:41:35 Patient TargetsNo targets recorded. Patient Instructions Encounter Date Encounter Id Patient Instructions Last Modified By Organization Details Last Modified Time 07/23/2022 [id number] eustachian tube problems: care instructions [email or web address] Not available 07/23/2022 18:26:30 Based on your [...] contact us with any questions or concerns. [email or web address] Not available 07/23/2022 18:25:58 05/16/2023 [id number] sore throat: car e instructions [email or web address] Not available 05/16/2023 16:03:20 Based on your [...] if you have any questions or concerns. Not available 05/16/2023 16:04:52 Patient will ret urn on Sunday if no improvement. Pt agrees with plan [email or web address] Not available 05/16/2023 16:08:08 Reason for Referral None Reported. Results Created Date Observation Date Name Description Value Unit Range Abnormal Flag Note LastModifiedBy Organization Detail LastModifiedTime 05/16/20 23 05/16/2023 rapid strep group A, throa t Unknown Analyte positi ve Not Available 21009_[facility] [address] [place], [address], 05/16/2023 15:45:19 05/16/20 23 05/16/2023 rapid strep group A, throa t Unknown Analyte yes Not Available 20999Pee[facility]ont [facility] [address] [place], [address], 05/16/2023 15:45:19 Result Notes None recorded. Problems Name Problem SNOMED Code Status Onset Date Resolution Date Notes Provider Name and Address Organization Details Recorded Time Diabetes mellitus 83927577 Active CIERA CHAD CARRIZALES null, [place] - [facility] 2 17:57:10 Chronic back pain 734253473 Active CIERA CHAD CARRIZALES null, [place] - [facility] 2 17:57:21 Hypercholester olemia 07284121 Active 2022 JAMILA BABB null, [place] - [facility] 3 15:44:40 Anxiety 25764130 Active 2022 JAMILA BABB null, [place] - [...] weight Respiratory rate Body temperature Oxygen saturation Heart rate Systolic And Diastolic Provider Name and Address Organization Details Last Updated DateTime 3 167.64 cm 33.6 kg/m2 40502.2 1 g 18 /min 97.5 [degF] 98 % 82 /min 107/70 mm[Hg] JAMILA BABB PA - [facility] 3 15:47:56 Date Recorded Body height Body mass index (BMI) Body weight Pain severity - 0-10 verbal numeric rating [Score] - Reported Respiratory rate Oxygen saturation Heart rate Body temperature Systolic And Diastolic Provider Name and Address Organization Details Last Updated DateTime 2 167.64 cm 33.9 kg/m2 37606.4 g 0 18 /min 98 % 95 /min 98.3 [degF] 130/76 mm[Hg] CIERA BONILLA RA PA - [facility] 2 18:01:01 Social History Question Answer [...] ICD10 Code Diagnosis IMO Codes Diagnosis Note [id number] [facility] [address] [place] [address] 07/23/2022 17:01:57 07/23/2022 18:29:23 Acute conjunctivitis of right eye 7889812855 27657 H10.31 Dysfunctio n of right eustachian tube 7369613977 864268 H69.91 [id number] MARCELO CENTENO [address] [place] [address] 05/16/2023 14:42:40 05/16/2023 16:05:34 Sore throat 920398217 J02.9 Acute tonsillitis 122711 08 J03.90 Health Concerns Section Related Observation LastModified by Organization Detai ls LastModified Time None Recorded Concern Status LastModified by Organization Details LastModified Time None Recorded Advance Directives Directive None Recorded Payers Insurance Date Sequence Insurance Name Policy Number Policy Bain Covered Member ID Bain Member ID Guarantor Name 05/16/2023 1 [facility] (MEDICAID REPLACEMENT - HMO) FLORA Paul [id number] Ronni Acevedozquez Notes Date Note Type Note Provider Name and Address Organization Details Recorded Time 07/23/2022 text/html Eye problemsRepo rted by PatientHPIFor eye symptoms, patient reportsredness,dischar ge, anditchingbut reportsno sensitivity to light,no pain in the eyes, andno blurred vision. For severity, patient reportsmild. For onset/timing, patient [id number]. For modifying factors, (does not wear contacts).Worse [...] HPI MARCELO BILLY [address], [address], [place] - [facility] 07/23/2022 18:32:11 05/16/2023 text/html Sore throatRepor dk by [id number] y.o male pt presents with sore throat and swollen lymph nodes since Sunday. Pain is getting worse and radiating to his left and right ear. Pt is speaking and swallowing normal. MARCELO CENTENO [address], [address], [place] - [facility] 05/16/2023 17:47:12
--- OUTSIDE RECORDS SUMMARY | 2025-07-22 18:23 | XMS_ITS | Encounter Summary ---
Author Organization [facility] Address [address] [place] [address] Care Team Providers Care Screen Printing Supervisor Name Role Phone Unavailable Primary Care Provider Unavailabl e Encounter Details Date Type Department Care Team (Late st Contact Info) Description 05/01/2017 Scanned Document [facility] at [address] [place] [address] Daniel Morgan, [address] [address] Social History Tobacco Use Types [...]
--- OUTSIDE RECORDS SUMMARY | 2025-07-22 18:23 | XMS_ITS | Clinical Summary ---
Author Organization [facility] Address [address] [place] [address] Care Team Providers Care Pharmacy Technician Inpatient Name Role Phone Unavailable Primary Care Provider [...]
== END 2025-07-22 16:22 | disposition home or self-care (01) ==
LOC: HO.HOS 15:23
PROVIDERS: PCP Internal Medicine; Visit Provider Orthopaedic Surgery
DX: M77.02 Medial epicondylitis, left elbow (principal); E11.9 Type 2 diabetes mellitus without complications
CPT/HCPCS: 99213

== ENCOUNTER → 2025-07-22 15:23 | Outpatient (BNVA) | payer OTHER, SELFPAY | PROVIDERS: PCP Internal Medicine; Visit Provider Orthopaedic Surgery | DX: M77.02 Medial epicondylitis, left elbow (principal); E11.9 Type 2 diabetes mellitus without complications; G56.21 Lesion of ulnar nerve, right upper limb; Z98.890 Other specified postprocedural states | CPT/HCPCS: 99212 ==